=== PATIENT | male | born 1960 | race Caucasian/White ===

== ENCOUNTER 2017-09-21 11:22 | Emergency (ER) | payer BC ==
--- NOTE | 2017-09-21 13:17 | RAD ---
Indication: Cough. 2 views of chest including dual energy PA views demonstrate no mediastinal shift. Heart is of normal size and configuration. Lung zhou demonstrate no pleural fluid, pneumonia or pneumothorax. IMPRESSION: No active cardiopulmonary disease is noted.
--- NOTE | 2017-09-21 13:50 | UC ---
Reji Alas Angela, scribed for Linda Draper MD on 09/21/17 at 1232 . General HPI - HPI Summary HPI Summary: This pt is a 57 y/o male, with prostate CA, presenting to [facility] c/o cough, chest congestion, and nasal congestion since June 2017. Pt reports that he also had flu like symptoms (including headache, fever, fatigue) which resolved 2 weeks ago. Pt notes his cough and chest congestion have persister. Reports productive cough with yellow sputum. He states he has had decreased appetite for the last 2 weeks. He believes he has a sinus infection. Denies diarrhea, constipation, rash, bloody stools. Pt has not had a flu vaccine this year. His oncologist is Dr. Mcknight. Pt finished chemotherapy in 2015, 2 phases. He last had a chest XR 1 year ago. He is scheduled for blood work today and PSA. 2 months ago his PSA was elevated but had not changed from prior. Pt is a former smoker, quit 25 years ago. - History of Current Complaint Chief Complaint: UCRespiratory Stated Complaint: CONGESTED,FEVER,COUGH Time Seen by Provider: 09/21/17 12:27 Hx Obtained From: Patient Onset/Duration: Lasting Weeks, Still Present Timing: Constant Current Severity: Moderate Associated Signs & Symptoms: Positive: Cough, Other - POS: chest congestion, nasal congestion. NEG: constipation, rash, bloody stools. 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 - Social History Occupation: Employed Full-time - own [employer] Alcohol Use: None Substance Use Type: None Smoking Status (MU): Former Smoker Have You Smoked in the Last Year: No When Did the Patient Quit Smoking/Using Tobacco: 22 years ago - Immunization History Most Recent Influenza Vaccination: NOT UTD Most Recent Tetanus Shot: unknown Most Recent Pneumonia Vaccination: never Review of Systems Constitutional: Negative Skin: Negative ENT: Sinus Congestion Respiratory: Cough Cardiovascular: Other - chest congestion Gastrointestinal: Negative Genitourinary: Negative Motor: Negative Neurovascular: Negative Musculoskeletal: Negative Neurological: Negative Psychological: Negative Is Patient Immunocompromised?: Yes All Other Systems Reviewed And Are Negative: Yes Physical Exam Triage Information Reviewed: Yes Appearance: Well-Appearing - sitting up, conversing easily and appropriately. NAD., Well-Nourished Vital Signs: Initial Vital Signs Temp 97.8 F 09/21/17 11:41 Pulse 80 09/21/17 11:41 Resp 18 09/21/17 11:41 BP 135/88 09/21/17 11:41 Pulse Ox 98 09/21/17 11:41 Vital Signs Reviewed: Yes Eye Exam: Normal ENT Exam: Normal ENT: Positive: Pharynx normal - uvula midline., Nasal congestion, TM dull, Other - Nasal turbinates are both red, a little swollen. Neck: Positive: Supple, Nontender, No Lymphadenopathy - no adenopathy appreciated Respiratory: Positive: Chest non-tender, Lungs clear, Normal breath sounds, No respiratory distress, No accessory muscle use Cardiovascular Exam: Normal Cardiovascular: Positive: RRR, No Murmur, Pulses Normal, Brisk Capillary Refill Abdominal Exam: Normal Abdomen Description: Positive: Nontender, No Organomegaly, Soft Bowel Sounds: Positive: Present Musculoskeletal Exam: Normal Musculoskeletal: Positive: Strength Intact Neurological Exam: Normal - nonfocal, grossly intact Psychological Exam: Normal - conversing easily and appropriately Skin Exam: Normal - no visible or reported rash Diagnostics - Radiology Chest XR Xray Interpretation: No Acute Changes - IMPRESSION: No active cardiopulmonary disease is noted. Dr. Draper has reviewed this radiology report. Radiology Interpretation Completed By: Radiologist Re-Evaluation - Re-Evaluation First Eval Re-Evaluation Time: 13:32 Comment: I reviewed the chest XR with the pt. Course/Dx - Course Course Of Treatment: Rapid influenza A and B are negative. Chest XR is negative. Spoke with Dr. Mcknight at 12:51. Influenza NS a/b negative. CXR NAD. Reviewed results with Angeles. D/w Dr. Mcknight, 13:00. Recommend start levofloxacin. She will f/u as scheduled next week, blood work this week. Questions as posed answered to the best of my ability. Bronchitis / possible sinusitis in the setting of previous cancer treatment. - Differential Dx - Multi-Symptom Provider Diagnoses: Bronchitis. Possible sinusitis - Physician Notifications Discussed Patient Care With: Nova Mcknight Time Discussed With Above Provider: 12:51 Discharge - Discharge Plan Condition: Stable Disposition: HOME Prescriptions: Levofloxacin TAB* [Levaquin 500 Tab*] 500 mg PO DAILY #10 tab Patient Education Materials: Sinusitis (ED), Chronic Bronchitis (ED) Referrals: Nova Mcknight MD [Primary Care Provider] - Additional Instructions: Your blood pressure was elevated during today's visit, 135/88. Please follow up with your primary care provider in 1-2 weeks. Follow up with Dr. Iris Mcknight as scheduled. Blood work this week. Start probiotic while taking antibiotic, and continue for at least one week thereafter. Seek medical attention for worse or new problems in the meantime. The documentation as recorded by the Reji puentes Angela accurately reflects the service I personally performed and the decisions made by me, Linda Draper MD.
[2017-09-21 13:59] VITALS: BP 149/96
== END 2017-09-21 13:56 | disposition home or self-care (01) ==
LOC: UCEAST 11:22
DX: J40 Bronchitis, not specified as acute or chronic (principal); R03.0 Elevated blood-pressure reading, without diagnosis of hypertension; Z87.891 Personal history of nicotine dependence
CPT/HCPCS: 71020; 87502; 99212; G0463

== ENCOUNTER 2017-11-14 11:37 | Emergency (ER) | payer BC ==
[2017-11-14 11:57] VITALS: BP 145/94
--- NOTE | 2017-11-14 12:43 | UC ---
Respiratory Complaint HPI - HPI Summary HPI Summary: Pt presents with cough that is productive at times and some hoarseness that started 1 week ago. Over the last 2 days he has had pain in his left back when coughing. He tells me that he is currently on a "chemo pill" for skin cancers. He has not been taking anything OTC for this. Denies fevers, chills, SOB, chest pain, abdominal pain, n/v/d/c. - History of Current Complaint Chief Complaint: UCGeneralIllness Stated Complaint: FLU LIKE SYMS Time Seen by Provider: 11/14/17 12:42 Hx Obtained From: Patient Onset/Duration: Gradual Onset Severity Initially: Moderate Severity Currently: Moderate Pain Intensity: 7 Pain Scale Used: 0-10 Numeric - Allergies/Home Medications Allergies/Adverse Reactions: Allergies Allergy/AdvReac Type Severity Reaction Status Date / Time No Known Allergies Allergy Verified 11/14/17 11:50 Home Medications: Home Medications Abiraterone Acetate [Zytiga] 1,000 mg PO DAILY 11/14/17 [History Confirmed 11/14] Cholecalciferol TAB* [Vitamin D TAB*] 5,000 unit PO DAILY 11/14/17 [History Confirmed 11/14/17] Multivitamin [Multivitamins] 1 tab PO DAILY 11/14/17 [History Confirmed 11/14/17 ] Potassium Gluconate [Potassium] 600 mg PO DAILY 11/14/17 [History Confirmed ] predniSONE TAB* [Deltasone TAB*] 1 tab PO BID 11/14/17 [History Confirmed ] PMH/Surg Hx/FS Hx/Imm Hx Cancer History: Other Other Cancer History: Skin cancer - Surgical History Surgical History: Yes Surgery Procedure, Year, and Place: prostatectomy 2006, TURP - Family History Family History: No FHx of CA. - Social History Occupation: Employed Full-time Lives: With Family Alcohol Use: None Substance Use Type: None Smoking Status (MU): Former Smoker Have You Smoked in the Last Year: No When Did the Patient Quit Smoking/Using Tobacco: 22 years ago - Immunization History Most Recent Influenza Vaccination: NOT UTD Most Recent Tetanus Shot: unknown Most Recent Pneumonia Vaccination: never Review of Systems Constitutional: Negative Skin: Negative Eyes: Negative ENT: Negative Respiratory: Cough Cardiovascular: Negative Gastrointestinal: Negative Musculoskeletal: Negative Neurological: Negative Psychological: Negative All Other Systems Reviewed And Are Negative: Yes Physical Exam Triage Information Reviewed: Yes Appearance: Well-Appearing, No Pain Distress, Ill-Appearing - Mildly Vital Signs: Initial Vital Signs Temp 97.6 F 11/14/17 11:52 Pulse 71 11/14/17 11:52 Resp 20 11/14/17 11:52 BP 145/94 11/14/17 11:52 Pulse Ox 97 11/14/17 11:52 Vital Signs Reviewed: Yes Eyes: Positive: Conjunctiva Clear. Negative: Conjunctiva Inflamed, Discharge ENT: Positive: Hearing grossly normal, Pharynx normal, TMs normal, Hoarse voice , Uvula midline. Negative: Pharyngeal erythema, Nasal congestion, Nasal drainage, TM bulging, TM dull, TM red, Tonsillar swelling, Tonsillar exudate, Sinus tenderness Neck: Positive: Supple, Nontender, No Lymphadenopathy Respiratory: Positive: Lungs clear, No respiratory distress, No accessory muscle use, Wheezing - Mild throughout Cardiovascular: Positive: RRR, No Murmur, Pulses Normal Neurological: Positive: Alert Psychological: Positive: Age Appropriate Behavior Skin: Negative: rashes UC Diagnostic Evaluation - Laboratory O2 Sat by Pulse Oximetry: 97 Re-Evaluation - Re-Evaluation First Eval Re-Evaluation Time: 14:00 Change: Improved Comment: Lung sounds improved. Pt reports mild improvement Respiratory Course/Dx - Course Course Of Treatment: CXR: IMPRESSION: NEGATIVE EXAMINATION. Influenza B positive. Duoneb - lung sounds improved. Tamiflu - Differential Dx/Diagnosis Provider Diagnoses: Influenza B Discharge - Discharge Plan Condition: Stable Disposition: HOME Prescriptions: Oseltamivir CAP* [Tamiflu CAP*] 75 mg PO BID #10 cap Patient Education Materials: Influenza (DC) Referrals: No Primary Care Phys,NOPCP [Primary Care Provider] - Additional Instructions: If you develop a fever, shortness of breath, chest pain, new or worsening symptoms - please call your PCP or go to the ED. Your blood pressure was high at todays visit. Please see your primary provider within 4 weeks for recheck and re-evaluation.
[2017-11-14] MEDS ORDERED: Albuterol/Ipratropium NEB.SOL* Albuterol 2.5 MG/Ipratropium 0.5 MG 3 ML INH ONE (12:47)
--- NOTE | 2017-11-14 13:14 | RAD ---
INDICATION: Cough COMPARISON: None TECHNIQUE: PA and lateral dual-energy views were obtained. FINDINGS: Bones/Soft Tissues: There are no acute bony findings. Cardiomediastinal: The cardiomediastinal silhouette is normal. Lungs: There are no infiltrates. Pleura: There are no pleural effusions. Other: None IMPRESSION: NEGATIVE EXAMINATION.
== END 2017-11-14 13:49 | disposition home or self-care (01) ==
LOC: UCEAST 11:37
DX: J10.1 Influenza due to other identified influenza virus with other respiratory manifestations (principal); R05 Cough; Z85.828 Personal history of other malignant neoplasm of skin; Z90.79 Acquired absence of other genital organ(s); Z87.891 Personal history of nicotine dependence
CPT/HCPCS: 71046; 87502; 99212; A9270-GY; G0463

== ENCOUNTER 2017-12-04 18:26 | Emergency (ER) | payer BC ==
[2017-12-04 18:36] VITALS: BP 131/84
--- NOTE | 2017-12-04 19:17 | UC ---
Julian Alas Gabriel, scribed for Diana Del Valle MD on 12/04/17 at 1912 . Throat Pain/Nasal Gerardo HPI - HPI Summary HPI Summary: This patient is a 57 year old M presenting [place] [facility] with a chief complaint of a sore throat that began 3 days ago. The patient rates the pain 2/10 in severity. Patient reports nasal congestion, sinus pressure, and post nasal drip. Patient denies ear pain, fever, chills, and rashes. Pt had lymphoma and radiation on his face around a year ago. He is more congested than normal. He is on immunosuppressants but has not had issues with yeast infections. Pt is currently on chemo agent as well as prednisone for recurrent prostate cancer. Pt denies with multiple sick contacts in grandchildren. Patients medication reviewed during this visit. - History of Current Complaint Chief Complaint: UCGeneralIllness Stated Complaint: SORE THROAT Time Seen by Provider: 12/04/17 19:05 Hx Obtained From: Patient Onset/Duration: Lasting Days - 3, Still Present Severity: Mild Pain Intensity: 2 Pain Scale Used: 0-10 Numeric Associated Signs & Symptoms: Positive: Sinus Discomfort, Nasal Discharge - Allergies/Home Medications Allergies/Adverse Reactions: Allergies Allergy/AdvReac Type Severity Reaction Status Date / Time No Known Allergies Allergy Verified 11/14/17 11:50 PMH/Surg Hx/FS Hx/Imm Hx Previously Healthy: Yes - Surgical History Surgical History: Yes Surgery Procedure, Year, and Place: prostatectomy 2006, TURP - Family History Known Family History: Negative: Respiratory Disease, Seizure Disorder Family History: No FHx of CA. - Social History Occupation: Employed Full-time Lives: With Family Alcohol Use: None Substance Use Type: None Smoking Status (MU): Former Smoker Have You Smoked in the Last Year: No When Did the Patient Quit Smoking/Using Tobacco: 22 years ago - Immunization History Most Recent Influenza Vaccination: NOT UTD Most Recent Tetanus Shot: unknown Most Recent Pneumonia Vaccination: never Review of Systems Constitutional: Negative - fever ENT: Sore Throat, Sinus Congestion, Sinus Pain/Tenderness, Other - post nasal drip Psychological: Other Is Patient Immunocompromised?: Yes - takes immunosuppressant All Other Systems Reviewed And Are Negative: Yes Physical Exam Triage Information Reviewed: Yes Completion Of Physical Exam Limited Due To: Other - Pt with nasal congested sound Appearance: Well-Appearing, No Pain Distress, Well-Nourished Vital Signs: Initial Vital Signs Temp 98.1 F 12/04/17 18:30 Pulse 67 12/04/17 18:30 Resp 16 12/04/17 18:30 BP 131/84 12/04/17 18:30 Pulse Ox 98 12/04/17 18:30 Eye Exam: Normal Eyes: Positive: Conjunctiva Clear ENT: Positive: Other - TM x2 clear + turbinates inflammed and boggy,moist +PND no exudate, no erythema uvula midline no erythema No visible concerning findings for demi Dental Exam: Normal Neck exam: Normal Neck: Positive: Supple, Nontender, No Lymphadenopathy Respiratory Exam: Normal Respiratory: Positive: Chest non-tender, Lungs clear, Normal breath sounds, No respiratory distress, No accessory muscle use Cardiovascular Exam: Normal Cardiovascular: Positive: RRR, No Murmur Abdominal Exam: Normal Abdomen Description: Positive: Nontender, No Organomegaly, Soft Musculoskeletal Exam: Normal Musculoskeletal: Positive: Strength Intact Neurological Exam: Normal Neurological: Positive: Alert Psychological Exam: Normal Psychological: Positive: Normal Response To Family Skin Exam: Normal Throat Pain/Nasal Course/Dx - Course Course Of Treatment: Pt with sore throat and progressive congestion. pt with h/ o facial radiation and currently on immunosuppressants. strep neg. culture for demi pending. after much discussion, will start rx for early sinusitis given hx. pt comfortable and in agreement with plan - Differential Dx/Diagnosis Provider Diagnoses: sinusitis. pharyngitis Discharge - Discharge Plan Condition: Stable Disposition: HOME Prescriptions: Amoxicillin PO (*) [Amoxicillin 875 MG (*)] 875 mg PO BID #14 tab Patient Education Materials: Pharyngitis (ED), Sinusitis (ED) Referrals: Nova Mcknight MD [Medical Doctor] - No Primary Care Phys,NOPCP [Primary Care Provider] - Additional Instructions: - - Stay well hydrated. Drink plenty of non-alcoholic, non-caffinated beverages. - Alternate ibuprofen (Advil, Motrin) 600mg and Tylenol every 3 hours for pain or fever. Take with food. Do NOT take for more than 4-5 days. -cold foods (popsicle, jello, apple sauce) may be soothing to your throat - okay to gargle and spit with warm salt water, 2-3 times a day - These infections are spread by secretions - do NOT share eating or drinking utensils - clean items you share with other people such as cell phones, computer mouse, TV remote, computer tablets, etc. After you have taken Antibiotics for 3 days, change your toothbrush and your pillowcase. - humidify the air in the room where you sleep - boil water, run a hot steam shower, vaporizer, cups of water by heat register - your throat sample was sent for additional testing including yeast. This result may take 3 days - a member of our care team will contact you if you need a different treatment - contact your doctor, return here, or go to the emergency department with questions or concerns The documentation as recorded by the Julian puentes Gabriel accurately reflects the service I personally performed and the decisions made by me, Diana Del Valle MD.
== END 2017-12-04 19:28 | disposition home or self-care (01) ==
LOC: UCEAST 18:26
DX: J32.9 Chronic sinusitis, unspecified (principal); Z87.891 Personal history of nicotine dependence
CPT/HCPCS: 87070; 87651; 99212; G0463

== ENCOUNTER 2018-08-22 05:47 | Day surgery (SDC) | payer BC ==
[~2018-08-22 05:47] MED LIST: Buffered Lidocaine 0.9% SYRIN* 5 ML/SYR SYRINGE INTRADERM ONE
[2018-08-22] MEDS ORDERED: Famotidine IV* 10 MG/ML 2 ML (20 mg) IV ONE (06:00)
[2018-08-22] MEDS ORDERED: Midazolam* 1 MG/ML 2 ML VIAL (2 MG) ONE (06:26)
[2018-08-22] MEDS ORDERED: fentaNYL* 50 MCG/ML 2 ML VIAL (100 MCG VIAL) ONE (06:26)
[2018-08-22] MEDS ORDERED: Famotidine IV* 10 MG/ML 2 ML (20 mg) ONE (06:46)
[2018-08-22] MEDS ORDERED: Oxymetazoline 0.05% NASAL SPR* 15 ML BTL ONE (06:50)
[2018-08-22] MEDS ORDERED: Lidocaine 4% TOPICAL* 50 ML TOP.SOLN ONE (06:50)
[2018-08-22] MEDS ORDERED: EPINEPHRINE 1 MG/ML 1 ML VIAL ONE (06:57)
[2018-08-22] MEDS ORDERED: Rocuronium* 10 MG/ML VIAL ONE (07:21)
[2018-08-22] MEDS ORDERED: Metoclopramide IV* 5 MG/ML 2 ML VIAL ONE (07:22)
[2018-08-22] MEDS ORDERED: Lidocaine 2% PF * 5 ML VIAL ONE (07:22)
[2018-08-22] MEDS ORDERED: Propofol* 10 MG/ML 20 ML BTL ONE (07:22)
[2018-08-22] MEDS ORDERED: Ondansetron INJ* 2 MG/ML VIAL ONE (07:22)
[2018-08-22] MEDS ORDERED: Dexamethasone IV* 4 MG/ML 1 ML (4 MG) ONE (07:24)
[2018-08-22] MEDS ORDERED: Sugammadex * 500 MG/5 ML VIAL IV PUSH ONE (07:27)
[2018-08-22] MEDS ORDERED: Naloxone* 0.4 MG/ML 1 ML VIAL IV PRN (07:35)
[2018-08-22] MEDS ORDERED: Ibuprofen TAB* 600 MG PO PRN (07:35)
[2018-08-22] MEDS ORDERED: fentaNYL* 50 MCG/ML 2 ML VIAL (100 MCG VIAL) IV PRN (07:35)
[2018-08-22] MEDS ORDERED: PROCHLORPERAZINE INJ 5 MG/ML 2 ML VIAL IV PRN (07:35)
[2018-08-22] MEDS ORDERED: HYDROcodone/ACETAMIN 5-325 MG* 1 TAB PO PRN (07:35)
[2018-08-22] MEDS ORDERED: DiMENhydriNATE IV* 50 MG/ML VIAL IV PUSH PRN (07:35)
[2018-08-22] MEDS ORDERED: Acetaminophen TAB* 325 MG PO PRN (07:35)
[2018-08-22] MEDS ORDERED: HYDROcodone/ACET. 7.5/325 LIQ* 15 ML UDC ONE (08:12)
[2018-08-22] MEDS ORDERED: Succinylcholine* 20 MG/ML 10 ML VIAL ONE (08:57)
[2018-08-22 09:13] VITALS: BP 145/87
--- NOTE | 2018-08-23 02:15 | OP ---
DATE OF OPERATION: 08/22/18 - [facility] DATE OF : 60 ATTENDING SURGEON: Cuba Rivas MD ENROUTE CONTROLLER: None. ANESTHESIA: General. PRE-OP DIAGNOSIS: Neoplasm, uncertain behavior larynx. POST-OP DIAGNOSIS: Neoplasm, uncertain behavior larynx. OPERATIVE PROCEDURE: Microlaryngoscopy with biopsies. 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 Initially, his larynx had a generally inflamed appearance. He then developed some ulceration in the region of the left aryepiglottic fold, which did not respond to treatment. The decision was made to bring the patient to the operating room for biopsies. ESTIMATED BLOOD LOSS: Negligible. SPECIMEN: Biopsies of left aryepiglottic fold. DESCRIPTION OF PROCEDURE: On 08/22/18, the patient was brought to the operating room. General anesthesia was induced and an oral endotracheal tube was placed. The patient was draped, the table was turned and time-out was performed. A variety of laryngoscopes were selected, ultimately an anterior commissure scope was selected and gave an optimal view of the area of interest. This was placed in suspension. A tooth guard was placed over the upper teeth and the scope was introduced slowly and carefully to avoid damage to dentition or the lips. Once the scope was secured in position, the microscope was brought into field. There was area of diffuse inflammation left side of the larynx with some fragile-appearing ulcerated mucosa in the region of the left aryepiglottic fold extending down to the left false vocal cord region. Multiple small biopsies were taken of this area. Two pledgets with epinephrine were placed on the area to assist with hemostasis. These were then removed. The area was re-inspected. There was no active bleeding. The patient was then returned to the care of the anesthesiologist. Teeth and lips looked fine and the tooth guard was removed. He was then extubated without difficulty and delivered to the PACU. [id number]/CPS #: [id number] [facility]
== END 2018-08-22 09:21 | disposition home or self-care (01) ==
LOC: OR 05:47
PROVIDERS: ATTEND Otolaryngology
DX: C32.1 Malignant neoplasm of supraglottis (principal); Z87.891 Personal history of nicotine dependence; K21.0 Gastro-esophageal reflux disease with esophagitis; 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, extranodal and solid organ sites; Z85.46 Personal history of malignant neoplasm of prostate
CPT/HCPCS: 88305; A9270-GY; J0330; J1100; J2250; J2405; J2704; J2765; J3010

== ENCOUNTER 2018-09-29 15:51 | Emergency (ER) | payer BC ==
[2018-09-29] MEDS ORDERED: NS 0.9% 1000 ML* 1,000 ML IV ONE (16:51)
[2018-09-29 17:25] LABS: ABS Basophils 0.1 10^3/ul (0-0.2); ABS Eosinophils 0 10^3/ul (0-0.6); ABS Lymphocytes 1.1 10^3/ul (1.0-4.8); ABS Monocytes 1.4 10^3/ul (0-0.8); ABS Neutrophils 11.3 10^3/ul (1.5-7.7); ABS Nucleated RBC 0 10^3/ul; Eosinophil % 0.3 %; Hematocrit 40 % (42-52); Hemoglobin 13.4 g/dl (14.0-18.0); Lymphocyte % 7.8 %; Mean Corpuscular HGB Conc 33 g/dl (31-36); Mean Corpuscular Hemoglobin 30 pg (27-31); Mean Corpuscular Volume 89 fL (80-94); Mean Platelet Volume 6.1 fL (7.4-10.4); Nucleated Red Blood Cells % 0; Platelet Count 255 10^3/ul (150-450); Red Cell Distribution Width 15 % (10.5-15); White Blood Count 13.9 10^3/ul (3.5-10.8)
[2018-09-29] MEDS ORDERED: Ciprofloxacin 400MG IVPREMIX(* 400 MG/200 ML BAG IVPB ONE (17:25)
[2018-09-29] MEDS ORDERED: metroNIDAZOLE TAB* 250 MG PO ONE (17:25)
--- NOTE | 2018-09-29 17:25 | ED ---
Abdominal Pain/Male - HPI Summary HPI Summary: A 58 y/o male accompanied by family presents to the ED c/o abdominal pain and fever reaching 4/10 in severity. As per triage, "Pt has diverticulitis and today has a fever and L abd pain. Pt says he has surgery appt on Monday ( supraglotic partial laryngectomy)". According to the patient, he has a surgical appointment on Monday for a supraglotic partial laryngectomy. He stated that he is concerned because he has been experiencing a fever for the past 2-3 days around 100.5 F. Additionally, he has abdominal pain and vomiting. He further noted that he has had diverticulitis for a long time, however, it has flared up approximately 3-4 times. PMHx of cancer. - History of Current Complaint Chief Complaint: EDAbdPain Stated Complaint: ABD PAIN/FEVER Time Seen by Provider: 09/29/18 16:45 Hx Obtained From: Patient Onset/Duration: Sudden Onset, Lasting Days, Still Present Timing: Constant Severity Initially: Moderate Severity Currently: Moderate Pain Intensity: 4 Pain Scale Used: 0-10 Numeric Location: Discrete At: LLQ Radiates: No Aggravating Factor(s): Nothing Alleviating Factor(s): Nothing Associated Signs And Symptoms: Positive: Fever - Allergies/Home Medications Allergies/Adverse Reactions: Allergies Allergy/AdvReac Type Severity Reaction Status Date / Time No Known Allergies Allergy Verified 08/22/18 06:44 PMH/Surg Hx/FS Hx/Imm Hx Endocrine/Hematology History: Denies: Hx Diabetes Cardiovascular History: Denies: Hx Hypertension, Hx Pacemaker/ICD, Other Cardiovascular Problems/ Disorders Respiratory History: Denies: Hx Sleep Apnea, Other Respiratory Problems/Disorders GI History: Reports: Hx Gastroesophageal Reflux Disease - omeprazole Denies: Other GI Disorders History: Denies: Hx Renal Disease, Other Problems/Disorders Musculoskeletal History: Denies: Other Musculoskeletal History Sensory History: Denies: Hx Contacts or Glasses, Hx Hearing Aid Opthamlomology History: Denies: Hx Contacts or Glasses Neurological History: Denies: Other Neuro Impairments/Disorders Psychiatric History: Denies: Hx Panic Disorder - Cancer History Cancer Type, Location and Year: PROSTATE, LYMPHOMA, THROAT Hx Chemotherapy: Yes - 2016 Hx Radiation Therapy: Yes - /c prostate CA - Surgical History Surgery Procedure, Year, and Place: Prostatectomy 2006, [facility] Hx Anesthesia Reactions: No Infectious Disease History: No Infectious Disease History: Denies: Traveled Outside the [place] in Last 30 Days - Family History Known Family History: Negative: Respiratory Disease, Seizure Disorder Family History: No FHx of CA. - Social History Alcohol Use: None Substance Use Type: Reports: None Hx Tobacco Use: Yes - quit 20 yrs ago, 20 pk history Smoking Status (MU): Former Smoker Type: Cigarettes Amount Used/How Often: 3 PPd for 20 years Have You Smoked in the Last Year: No Review of Systems Positive: Fever Positive: Abdominal Pain, Vomiting All Other Systems Reviewed And Are Negative: Yes Physical Exam - Summary Physical Exam Summary: VITAL SIGNS: Reviewed. GENERAL: Patient is a well-developed and nourished male who is lying comfortable in the stretcher. Patient is not in any acute respiratory distress. HEAD AND FACE: No signs of trauma. No ecchymosis, hematomas or skull depressions. No sinus tenderness. EYES: PERRLA, EOMI x 2, No injected conjunctiva, no nystagmus. EARS: Hearing grossly intact. Ear canals and tympanic membranes are within normal limits. MOUTH: Oropharynx within normal limits. NECK: Supple, trachea is midline, no adenopathy, no JVD, no carotid bruit, no c- spine tenderness, neck with full ROM. CHEST: Symmetric, no tenderness at palpation LUNGS: Clear to auscultation bilaterally. No wheezing or crackles. CVS: Regular rate and rhythm, S1 and S2 present, no murmurs or gallops appreciated. ABDOMEN: Soft, LLQ tenderness. No signs of distention. No rebound no guarding, and no masses palpated. Bowel sounds are normal. EXTREMITIES: FROM in all major joints, no edema, no cyanosis or clubbing. NEURO: Alert and oriented x 3. No acute neurological deficits. Speech is normal and follows commands. SKIN: Dry and warm Triage Information Reviewed: Yes Vital Signs On Initial Exam: Initial Vitals Temp Pulse Resp BP Pulse Ox 98.1 F 93 18 145/98 98 09/29/18 16:17 09/29/18 16:17 09/29/18 16:17 09/29/18 16:17 09/29/18 16:17 Vital Signs Reviewed: Yes Diagnostics - Vital Signs Vital Signs Temp Pulse Resp BP Pulse Ox 09/29/18 16:17 98.1 F 93 18 145/98 98 - Laboratory Result Diagrams: 09/29/18 17:17 09/29/18 17:17 Lab Statement: Any lab studies that have been ordered have been reviewed, and results considered in the medical decision making process. - CT CT A/P CT Interpretation Completed By: Radiologist Summary of CT Findings: 1. CT findings are consistent with proximal sigmoid diverticulitis. 2. Chronic, degenerative and iatrogenic findings described in body the report. ED PHYSICIAN REVIEWED THIS RADIOLOGY REPORT. Re-Evaluation - Re-Evaluation First Eval Re-Evaluation Time: 18:06 Change: Unchanged Comment: PATIENT'S NOTED STATED THAT WHEN HE AMBULATES, THE PATIENT C/O LEG AND HIP PAIN. Abdominal Pain Fem Course/Dx - Course Assessment/Plan: A 58 y/o male accompanied by family presents to the ED c/o abdominal pain and fever reaching 4/10 in severity. As per triage, "Pt has diverticulitis and today has a fever and L abd pain. Pt says he has surgery appt on Monday (supraglottic partial laryngectomy)". According to the patient , he has a surgical appointment on Monday for a supraglottic partial laryngectomy. He stated that he is concerned because he has been experiencing a fever for the past 2-3 days around 100.5 F. Additionally, he has abdominal pain and vomiting. He further noted that he has had diverticulitis for a long time, however, it has flared up approximately 3-4 times. PMHx of cancer. Blood work without any significant abnormality except for WBCs of 13.9, no bands, glucose of 122, CRP is 31.8. Abdomen and pelvic CT impression: CT findings are consistent with a proximal sigmoid diverticulitis. Chronic degenerative an iatrogenic findings. In the ED course the patient was given ciprofloxacin and Flagyl. Patient also was hydrated with IV fluids. I discussed all the findings and test results with the patient. Patient was instructed to return to the emergency room immediately if any of the symptoms return or worsens. Plan of care was discussed with the patient and understands and agrees. All questions were answered at patient satisfaction. There were no further complaints or concerns. Lung exam before discharge: CTA B/L. Good air exchange. No wheezing or crackles heard. CVS: S1 and S2 present. No murmurs appreciated. Patient is alert and oriented x 3. Patient is hemodynamically stable. Patient will be discharged home with follow up PCP in the next 2-3 days - Diagnoses Differential Diagnosis/HQI/PQRI: Appendicitis, Bowel Obstruction, Constipation, Ureteral Stone, Urinary Tract Infection Provider Diagnoses: Diverticulitis Discharge - Sign-Out/Discharge Documenting (check all that apply): Patient Departure - DISCHARGE - Discharge Plan Condition: Stable Disposition: HOME Prescriptions: Ciprofloxacin TAB* [Cipro 500 MG TAB*] 500 mg PO BID #20 tab metroNIDAZOLE [Flagyl 500 MG TAB] 500 mg PO TID #30 tab Patient Education Materials: Diverticulitis (ED) Referrals: Dianne Day MD [Primary Care Provider] - 3 Days Additional Instructions: FOLLOW UP WITH PRIMARY CARE PROVIDER IN 3 DAYS. TAKE MEDICATION PRESCRIBED. RETURN TO ED FOR ANY NEW OR WORSENING SYMPTOMS. - Billing Disposition and Condition Condition: STABLE Disposition: Home - Attestation Statements Document Initiated by Scribe: Yes Documenting Scribe: Demar Aguilar Provider For Whom Dhaval is Documenting (Include Credential): Chris Ferguson MD Scribe Attestation: Demar Alas, scribed for Chris Ferguson MD on 09/30/18 at 0906. Scribe Documentation Reviewed: Yes Provider Attestation: The documentation as recorded by the Demar puentes accurately reflects the service I personally performed and the decisions made by me, Chris Ferguson MD Status of Scribe Document: Viewed Attestations Scribe Attestation: IDr. Ferguson personally performed the services described in this documentation as scribed in my presence and it is both accurate and complete. User Type: Provider with Scribe Provider Attestation: The documentation recorded by the dhaval accurately reflects the service I personally performed and the decisions made by me.
[2018-09-29 17:43] LABS: Albumin 4.1 g/dL (3.2-5.2); Albumin/Globulin Ratio 1.3 (1-3); BUN/Creatinine Ratio 17.8 (8-20); C Reactive Protein 31.87 mg/L (<8.01); Calcium 9.2 mg/dL (8.6-10.3); EGFR Non-African American 75.9 (>60); Globulin 3.2 g/dL (2-4); Potassium 3.5 mmol/L (3.5-5.0); Total Bilirubin 0.9 mg/dL (0.2-1.0); Total Protein 7.3 g/dL (6.4-8.9)
[2018-09-29 18:57] VITALS: BP 128/79
== END 2018-09-29 19:00 | disposition home or self-care (01) ==
LOC: ED 15:51
DX: K57.32 Diverticulitis of large intestine without perforation or abscess without bleeding (principal); R50.9 Fever, unspecified; K21.9 Gastro-esophageal reflux disease without esophagitis; Z87.891 Personal history of nicotine dependence
CPT/HCPCS: 36415; 74176; 80053; 83605; 83690; 83735; 85025; 86140; 96365; 99283; A9270-GY; J0744

== ENCOUNTER → 2018-10-15 07:15 | Emergency (ER) | payer BC ==
[~2018-10-15 07:15] MED LIST changes: -Buffered Lidocaine 0.9% SYRIN* 5 ML/SYR SYRINGE INTRADERM ONE; +Fluconazole 100 MG TAB* TAB PO ONE; +Ketorolac INJ* 30 MG/ML 1 ML VIAL IV PUSH ONE; +Morphine VIAL* 4 MG/ML VIAL (1 ml vial) IV ONE; +NS 0.9% 1000 ML* 1,000 ML IV ONE; +Ondansetron INJ* 2 MG/ML VIAL IV ONE
--- NOTE | 2018-10-15 07:31 | ED ---
Back Pain - HPI Summary HPI Summary: A 58 y/o M with throat CA presents to ED with bilat lower back pain onset last night this date. He says he ate last night without issue. Patient has known thrush onset 10/04/18. It's made swallowing and drinking difficult. He started on Nystatin on 10/11/18 but he doesnt feel the medication is helping. He was on ABX for diverticulitis 3 weeks ago which caused the thrush. Associated sx: n/v, diffuse abd ache, mild COBB, dark urine, mild recent weight loss. Denies fever, dysuria, hematuria, bowel changes, dizziness, SOB, diarrhea. Aggravating factor : movement. He has not had back pain prior, kidney stones. PMHx: prostate CA, lymphoma. Pt sees Dr. Mcknight, oncology. He is due to have a neck biopsy later today. Medications reviewed. - History of Current Complaint Chief Complaint: EDFlankPain Stated Complaint: POSS THRUSH/POSS BLADDER INFECTION Time Seen by Provider: 10/15/18 07:27 Hx Obtained From: Patient, Family/Bulldozer/Loader/Compactor/Scraper Onset/Duration: Lasting Hours, Still Present Onset/Duration: Started Hours Ago, Atraumatic, Still Present Timing: Constant Back Pain Location: Is Discrete @ - low bilat back Severity Currently: Severe Pain Intensity: 8 Pain Scale Used: 0-10 Numeric Aggravating Symptom(s): Movement Associated Signs And Symptoms: Positive: Abdominal Pain, Weight Loss, Other - pos: n/v, dark urine, mild COBB. neg: dysuria, hematuria, bowel changes, dizziness , SOB, diarrhea. Negative: Fever, Bladder Incontinence, Bowel Incontinence - Allergies/Home Medications Allergies/Adverse Reactions: Allergies Allergy/AdvReac Type Severity Reaction Status Date / Time No Known Allergies Allergy Verified 10/15/18 07:20 PMH/Surg Hx/FS Hx/Imm Hx Previously Healthy: No Endocrine/Hematology History: Denies: Hx Diabetes Cardiovascular History: Denies: Hx Hypertension, Hx Pacemaker/ICD, Other Cardiovascular Problems/ Disorders Respiratory History: Denies: Hx Sleep Apnea, Other Respiratory Problems/Disorders GI History: Reports: Hx Gastroesophageal Reflux Disease - omeprazole Denies: Other GI Disorders History: Denies: Hx Renal Disease, Other Problems/Disorders Musculoskeletal History: Denies: Other Musculoskeletal History Sensory History: Denies: Hx Contacts or Glasses, Hx Hearing Aid Opthamlomology History: Denies: Hx Contacts or Glasses Neurological History: Denies: Other Neuro Impairments/Disorders Psychiatric History: Denies: Hx Panic Disorder - Cancer History Cancer Type, Location and Year: PROSTATE, LYMPHOMA, THROAT Hx Chemotherapy: Yes - 2016 Hx Radiation Therapy: Yes - /c prostate CA - Surgical History Surgery Procedure, Year, and Place: Prostatectomy 2007, [facility] Hx Anesthesia Reactions: No Infectious Disease History: No Infectious Disease History: Denies: Traveled Outside the [place] in Last 30 Days - Family History Known Family History: Negative: Respiratory Disease, Seizure Disorder Family History: No FHx of CA. - Social History Occupation: Employed Full-time - SELF-EMPLOYED Lives: With Family Alcohol Use: None Hx Substance Use: No Substance Use Type: Reports: None Hx Tobacco Use: Yes - quit 20 yrs ago, 20 pk history Smoking Status (MU): Former Smoker Type: Cigarettes Amount Used/How Often: 3 PPd for 20 years Have You Smoked in the Last Year: No Review of Systems Positive: Other - pos: mild recent weight loss. Negative: Fever Negative: Shortness Of Breath Positive: Abdominal Pain, Vomiting, Nausea, Other - neg: bowel changes. Negative: Diarrhea Positive: other - pos: dark urine. Negative: dysuria, hematuria Neurological: Other - neg: dizziness Positive: Headache - mild All Other Systems Reviewed And Are Negative: Yes Physical Exam - Summary Physical Exam Summary: Appearance: Well appearing, no pain distress Skin: warm, dry, reflects adequate perfusion Head/face: normal Eyes: EOMI, TALIA ENT: mucous membranes moist. Thick yellow white plaque on the tongue, nothing in lower pharynx Neck: supple, non-tender Respiratory: CTA, breath sounds present Cardiovascular: RRR, pulses symmetrical Abdomen: non-tender, soft, no CVA tenderness, no reproducible back pain with palpation. Bowel Sounds: present Musculoskeletal: normal, strength/ROM intact Neuro: normal, sensory motor intact, A&Ox3 Triage Information Reviewed: Yes Vital Signs On Initial Exam: Initial Vitals Temp Pulse Resp BP Pulse Ox 97.3 F 88 16 140/94 93 10/15/18 07:17 10/15/18 07:17 10/15/18 07:17 10/15/18 07:17 10/15/18 07:17 Vital Signs Reviewed: Yes Diagnostics - Vital Signs Vital Signs Temp Pulse Resp BP Pulse Ox 10/15/18 07:25 85 97 10/15/18 07:17 97.3 F 88 16 140/94 93 - Laboratory Result Diagrams: 10/15/18 06:53 10/15/18 06:53 Lab Statement: Any lab studies that have been ordered have been reviewed, and results considered in the medical decision making process. - CT A/P CT CT Interpretation Completed By: Radiologist Summary of CT Findings: IMPRESSION: 1. DIVERTICULOSIS. 2. NO HYDRONEPHROSIS OR NEPHROLITHIASIS. ED provider has reviewed this report. L-SPINE CT CT Interpretation Completed By: Radiologist Summary of CT Findings: IMPRESSION: At L3-L4 degenerative disc disease with broad-based protrusion flattens the thecal sac. At L4-L5 broad-based protrusion flattens the thecal sac with a left posterior lateral disc component which may impinge upon the left exiting nerve root. L5-S1 degenerative disc disease with broad-based protrusion flattening the thecal sac. ED provider has reviewed this report. Re-Evaluation - Re-Evaluation 1 Re-Evaluation Time: 08:45 Change: Unchanged Comment: Obtaining UA. Patient is still having pain. 2 Re-Evaluation Time: 09:15 Change: Improved Comment: Discussing CT and UA results with pt. Back Pain Course/Dx - Course Course Of Treatment: Nurse's notes reviewed. Patient with a history of cancer and complained of back pain. He also has thrush and possible esophagitis. He was given oral Diflucan here. He will continue on this daily. CT scan of the abdomen and pelvis and lumbar spine were obtained and showed no acute inflammatory issue or evidence of metastatic spread. His pain was most improved after IV Toradol. He states that he is unable to take NSAIDs scheduled due to his oral chemotherapy. Laboratories otherwise not significant. He was hydrated here and is feeling well. He is discharged to follow-up with his oncologist. - Diagnoses Differential Diagnosis/HQI/PQRI: Positive: Other - Metastatic spread of cancer, UTI, pyelonephritis, lumbar back pain, renal colic, colitis Provider Diagnoses: Back pain, History of cancer, Esophageal candidiasis Discharge - Sign-Out/Discharge Documenting (check all that apply): Patient Departure - D/C - Discharge Plan Condition: Improved Disposition: HOME Prescriptions: Cyclobenzaprine TAB* [Flexeril 10 MG TAB*] 10 mg PO TID PRN #12 tab PRN Reason: back pain Fluconazole 100 MG TAB* [Diflucan 100 MG TAB*] 200 mg PO DAILY #20 tab Patient Education Materials: Oral Candidiasis (ED), Acute Low Back Pain (ED) Referrals: Nvoa Mcknight MD [Medical Doctor] - Dianne Day MD [Primary Care Provider] - Additional Instructions: Call your oncologist today to discuss ER visit. Inquire if you are able to take anti-inflammatory medications with your cancer drug. If so, take up to 2 Aleve twice daily as needed for back pain. Drink plenty of fluids. Range of motion, stretching exercises may help. If pain continues, physical therapy may be indicated. Follow-up with your doctor as soon as possible. You are able to have your procedure later today as scheduled. - Billing Disposition and Condition Condition: IMPROVED Disposition: Home - Attestation Statements Document Initiated by Fermin: Yes Documenting Scribe: Yazmin David Provider For Whom Fermin is Documenting (Include Credential): Dr. Dequan Arguello MD Scribe Attestation: Yazmin Alas scribed for Dr. Dequan Arguello MD on 10/15/18 at 1101. Scribe Documentation Reviewed: Yes Provider Attestation: The documentation as recorded by the Yazmin puentes accurately reflects the service I personally performed and the decisions made by , Dr. Dequan Arguello MD Status of Scribe Document: Viewed
[2018-10-15 07:52] LABS: Hematocrit 41 % (42-52); Mean Corpuscular HGB Conc 34 g/dl (31-36); Mean Corpuscular Hemoglobin 30 pg (27-31); Mean Corpuscular Volume 89 fL (80-94); Mean Platelet Volume 5.8 fL (7.4-10.4); Platelet Count 280 10^3/ul (150-450); Red Blood Count 4.62 10^6/ul (4.00-5.40); Red Cell Distribution Width 15 % (10.5-15); White Blood Count 11.8 10^3/ul (3.5-10.8)
[2018-10-15 08:11] LABS: Albumin 3.9 g/dL (3.2-5.2); BUN/Creatinine Ratio 22.9 (8-20); Calcium 9.7 mg/dL (8.6-10.3); EGFR Non-African American 80.5 (>60); Globulin 3.8 g/dL (2-4); Potassium 3.9 mmol/L (3.5-5.0); Total Bilirubin 0.5 mg/dL (0.2-1.0); Total Protein 7.7 g/dL (6.4-8.9)
[2018-10-15 08:25] LABS: ABS Basophils 0.1 10^3/ul (0-0.2); ABS Eosinophils 0.1 10^3/ul (0-0.6); ABS Lymphocytes 1.8 10^3/ul (1.0-4.8); ABS Monocytes 1.2 10^3/ul (0-0.8); ABS Neutrophils 8.6 10^3/ul (1.5-7.7); ABS Nucleated RBC 0 10^3/ul; Eosinophil % 1.1 %; Lymphocyte % 15.5 %; Nucleated Red Blood Cells % 0.1
[2018-10-15 08:55] LABS: Urine Appearance Clear; Urine Bilirubin Negative (Negative); Urine Blood Negative (Negative); Urine Color Yellow; Urine Glucose Negative (Negative); Urine Ketones Negative (Negative); Urine Nitrite Negative (Negative); Urine Protein Negative (Negative); Urine Urobilinogen Negative (Negative)
[2018-10-15 09:40] VITALS: BP 128/88
== END | disposition home or self-care (01) ==
LOC: ED 07:15
DX: M54.5 Low back pain (principal); B37.81 Candidal esophagitis; K57.30 Diverticulosis of large intestine without perforation or abscess without bleeding; M51.36 Other intervertebral disc degeneration, lumbar region; R11.2 Nausea with vomiting, unspecified; R51 Headache; R63.4 Abnormal weight loss; K21.9 Gastro-esophageal reflux disease without esophagitis; Z85.46 Personal history of malignant neoplasm of prostate; Z87.891 Personal history of nicotine dependence
CPT/HCPCS: 36415; 72131; 74176; 80053; 81003; 85025; 96361; 96374; 96375; 99282; A9270-GY; J1885; J2270; J2405

== ENCOUNTER 2018-10-19 10:39 | Observation (INO) | payer BC ==
[~2018-10-19 10:39] MED LIST changes: +Dexamethasone IV* 8 MG in NS 0.9% 50 ML* 50 ML IV SCH; -Fluconazole 100 MG TAB* TAB PO ONE; -Ketorolac INJ* 30 MG/ML 1 ML VIAL IV PUSH ONE; -Morphine VIAL* 4 MG/ML VIAL (1 ml vial) IV ONE; -NS 0.9% 1000 ML* 1,000 ML IV ONE; -Ondansetron INJ* 2 MG/ML VIAL IV ONE
[2018-10-19] MEDS ORDERED: Ondansetron INJ* 2 MG/ML VIAL ONE (11:19)
[2018-10-19] MEDS ORDERED: Famotidine IV* 10 MG/ML 2 ML (20 mg) ONE (14:08)
[2018-10-19] MEDS ORDERED: Ondansetron INJ* 2 MG/ML VIAL IV PRN (16:05)
[2018-10-19] MEDS ORDERED: Prochlorperazine TAB* 10 MG PO PRN (16:18)
[2018-10-19] MEDS ORDERED: Enoxaparin(*) 40 MG/0.4 ML SYR SUBCUT SCH (17:00)
[2018-10-19] MEDS: NS 0.9% 1000 ML* 1,000 ML IV SCH (17:30)
[2018-10-19 17:57] LABS: Hematocrit 37 % (42-52); Hemoglobin 12.3 g/dl (14.0-18.0); Mean Corpuscular HGB Conc 34 g/dl (31-36); Mean Corpuscular Hemoglobin 30 pg (27-31); Mean Corpuscular Volume 89 fL (80-94); Mean Platelet Volume 6.2 fL (7.4-10.4); Platelet Count 175 10^3/ul (150-450); Red Blood Count 4.14 10^6/ul (4.00-5.40); Red Cell Distribution Width 15 % (10.5-15); White Blood Count 9.8 10^3/ul (3.5-10.8)
[2018-10-19 18:13] LABS: Albumin 3.5 g/dL (3.2-5.2); Albumin/Globulin Ratio 1.1 (1-3); BUN/Creatinine Ratio 17.3 (8-20); Calcium 8.6 mg/dL (8.6-10.3); EGFR African American 66.8 (>60); EGFR Non-African American 55.2 (>60); Globulin 3.2 g/dL (2-4); Potassium 4.1 mmol/L (3.5-5.0); Total Bilirubin 0.6 mg/dL (0.2-1.0); Total Protein 6.7 g/dL (6.4-8.9)
[2018-10-19 18:23] LABS: ABS Basophils 0 10^3/ul (0-0.2); ABS Eosinophils 0 10^3/ul (0-0.6); ABS Lymphocytes 0.3 10^3/ul (1.0-4.8); ABS Monocytes 0.2 10^3/ul (0-0.8); ABS Neutrophils 9.3 10^3/ul (1.5-7.7); ABS Nucleated RBC 0 10^3/ul; Eosinophil % 0 %; Lymphocyte % 3.1 %; Nucleated Red Blood Cells % 0.1
[2018-10-19] MEDS: predniSONE TAB* 5 MG PO SCH (20:30)
[2018-10-19 20:31] LABS: Urine Appearance Cloudy; Urine Bacteria Absent (Absent); Urine Bilirubin Negative (Negative); Urine Blood Negative (Negative); Urine Color Amber; Urine Glucose Negative (Negative); Urine Ketones Trace (Negative); Urine Nitrite Negative (Negative); Urine Protein 2+(100 mg/dL) (Negative); Urine Red Blood Cell Trace(0-2/hpf) (Absent); Urine Specific Gravity 1.027 (1.010-1.030); Urine Urobilinogen Negative (Negative); Urine White Blood Cell 2+(11-20/hpf) (Absent)
[2018-10-19] MEDS ORDERED: oxyCODONE TAB* 5 MG TAB PO PRN (20:40)
[2018-10-20] MEDS: NS 0.9% 1000 ML* 1,000 ML IV SCH ×2 (00:36→05:41)
[2018-10-20 08:38] LABS: ABS Basophils 0 10^3/ul (0-0.2); ABS Eosinophils 0 10^3/ul (0-0.6); ABS Lymphocytes 0.6 10^3/ul (1.0-4.8); ABS Monocytes 0.3 10^3/ul (0-0.8); ABS Nucleated RBC 0 10^3/ul; Eosinophil % 0 %; Hematocrit 37 % (42-52); Hemoglobin 12.3 g/dl (14.0-18.0); Lymphocyte % 4.7 %; Mean Corpuscular HGB Conc 33 g/dl (31-36); Mean Corpuscular Hemoglobin 30 pg (27-31); Mean Corpuscular Volume 89 fL (80-94); Mean Platelet Volume 6.7 fL (7.4-10.4); Nucleated Red Blood Cells % 0; Platelet Count 198 10^3/ul (150-450); Red Blood Count 4.14 10^6/ul (4.00-5.40); Red Cell Distribution Width 14 % (10.5-15); White Blood Count 11.9 10^3/ul (3.5-10.8)
[2018-10-20 08:54] LABS: Albumin 3.4 g/dL (3.2-5.2); BUN/Creatinine Ratio 23.8 (8-20); Calcium 9.2 mg/dL (8.6-10.3); EGFR African American 113.6 (>60); EGFR Non-African American 93.9 (>60); Globulin 3.5 g/dL (2-4); Magnesium 1.9 mg/dL (1.9-2.7); Potassium 3.9 mmol/L (3.5-5.0); Total Bilirubin 0.5 mg/dL (0.2-1.0); Total Protein 6.9 g/dL (6.4-8.9)
[2018-10-20] MEDS ORDERED: Fluconazole 100 MG TAB* TAB PO SCH (09:00)
[2018-10-20] MEDS: predniSONE TAB* 5 MG PO SCH (10:49)
[2018-10-20] MEDS: NS 0.9% 1000 ML* 2,000 ML IV ONE ×2 (11:09→13:01)
[2018-10-20 15:36] VITALS: BP 116/72
--- NOTE | 2018-10-22 00:21 | DS ---
CC: Dr. Dianne Day; Dr. Nova Mcknight; Dr. Dante Gonzalez * DISCHARGE SUMMARY: DATE OF ADMISSION: 10/19/18 DATE OF DISCHARGE: 10/20/18 PRIMARY CARE PROVIDER: Dr. Dianne Day. PRIMARY ONCOLOGIST: Dr. Nova Mcknight. RADIATION ONCOLOGIST: Dr. Dante Gonzalez. ATTENDING PHYSICIAN: Dr. Ricky Haywood.* (DICTATED BY CARROL BETTENCOURT) DISCHARGING PROVIDER: CARROL Bettencourt. PRIMARY DISCHARGE DIAGNOSIS: Viral gastroenteritis. SECONDARY DISCHARGE DIAGNOSES: 1. Thrush. 2. Head and neck cancer with plans for definitive radiation treatment to start on Monday. 3. Metastatic prostate cancer, currently treated with Zytiga and prednisone, as well as Lupron. DISCHARGE MEDICATIONS: 1. Abiraterone 1000 mg p.o. daily. 2. Vitamin D 10,000 units p.o. daily. 3. Lupron 22 mg subcu q.3 months. 4. Multivitamin 1 tablet p.o. daily. 5. Prednisone 5 mg p.o. twice daily. 6. Clotrimazole lizzy 10 mg p.o. 4 times daily. 7. Famotidine suspension 40 mg per 5 mL, instructions to take 5 mL p.o. daily. 8. Fluconazole 200 mg p.o. daily. 9. Viscous lidocaine 15 mL p.o. 3 times daily as needed for throat pain. HOSPITAL IMAGING: None. HOSPITAL COURSE: This is a 58-year-old gentleman with remote history of lymphoma, currently under surveillance, as well as metastatic prostate cancer and new diagnosis of head and neck cancer, with plans to start definitive radiation therapy on Monday, presented to the oncology clinic the day preceding his admission with complaints of fever. He received hydration in the clinic via IV. Symptom was felt to be viral and he was given instructions on supportive care. He continued to have intermittent fevers in the next overnight period and his oral intake remains quite poor. He then subsequently developed vomiting and diarrhea and returned to the clinic for reevaluation. After fluid bolus and antiemetics, his symptoms had not improved and he was subsequently admitted to the hospital for further supportive care measures. His labs were largely unremarkable and blood cultures that had been taken the day prior were reported as negative at 24 hours. Influenza testing was completed and was also negative. The patient received further IV fluids and the antiemetics and he remained afebrile during his hospitalization. His energy and appetite returned and his nausea and diarrhea slowed. DISPOSITION AND FOLLOWUP PLAN: The patient is being discharged to home. He has plans to start radiation therapy on Monday, which can continue as scheduled. Medications are as listed above. The patient will be closely followed by Oncology following discharge. CARROL BETTENCOURT [id number]/[facility] #: [id number] MTDSalazar
== END 2018-10-20 16:05 | disposition home or self-care (01) ==
LOC: CHOA 10:39 → MED 15:02
PROVIDERS: ADMIT Internal Medicine Hematology & Oncology; ATTEND Internal Medicine Hematology & Oncology
DX: E86.0 Dehydration (principal); R11.2 Nausea with vomiting, unspecified; A08.4 Viral intestinal infection, unspecified; B37.9 Candidiasis, unspecified; R51 Headache; C76.0 Malignant neoplasm of head, face and neck; Z85.46 Personal history of malignant neoplasm of prostate; R50.9 Fever, unspecified
CPT/HCPCS: 36415; 80053; 81003; 81015; 83735; 85025; 87086; 96360; 96361; 96372; 96374; 96375; 99211; 99217; 99220; A9270-GY; G0378; G0463; J1100; J1650; J2405; J7512

== ENCOUNTER 2019-03-06 10:05 | Day surgery (SDC) | payer BC ==
[~2019-03-06 10:05] MED LIST changes: +Buffered Lidocaine 1% SYRIN* 1 ML/SYRINGE INTRADERM ONE; +Dexamethasone IV* 4 MG/ML 1 ML (4 MG) IV SLOW PU ONE; -Dexamethasone IV* 8 MG in NS 0.9% 50 ML* 50 ML IV SCH; +Famotidine TAB* 20 MG PO ONE; +Lactated Ringers 1000 ML Bag* 1,000 ML IV SCH
[2019-03-06] MEDS ORDERED: fentaNYL* 50 MCG/ML 2 ML VIAL (100 MCG VIAL) ONE ×3 (10:32→14:28)
[2019-03-06] MEDS ORDERED: Midazolam* 1 MG/ML 2 ML VIAL (2 MG) ONE (10:32)
[2019-03-06] MEDS ORDERED: Propofol* 10 MG/ML 20 ML BTL ONE (10:32)
[2019-03-06] MEDS ORDERED: Lidocaine 2% PF * 5 ML VIAL ONE (10:32)
[2019-03-06] MEDS ORDERED: Dexamethasone IV* 4 MG/ML 1 ML (4 MG) ONE (10:36)
[2019-03-06] MEDS ORDERED: Buffered Lidocaine 1% SYRIN* 1 ML/SYRINGE INTRADERM ONE (10:36)
[2019-03-06] MEDS ORDERED: Famotidine TAB* 20 MG ONE (10:36)
[2019-03-06] MEDS ORDERED: EPINEPHRINE 1 MG/ML 1 ML VIAL ONE (12:34)
[2019-03-06] MEDS ORDERED: Oxymetazoline 0.05% NASAL SPR* 15 ML BTL ONE (12:34)
[2019-03-06] MEDS ORDERED: Lidocaine 4% TOPICAL* 50 ML TOP.SOLN ONE (12:35)
[2019-03-06] MEDS ORDERED: Naloxone* 0.4 MG/ML 1 ML VIAL IV PRN (12:46)
[2019-03-06] MEDS ORDERED: DiMENhydriNATE IV* 50 MG/ML VIAL IV PUSH PRN (12:46)
[2019-03-06] MEDS ORDERED: Acetaminophen TAB* 325 MG PO PRN (12:46)
[2019-03-06] MEDS ORDERED: Succinylcholine* 20 MG/ML 10 ML VIAL ONE (13:02)
[2019-03-06] MEDS ORDERED: Ondansetron INJ* 2 MG/ML VIAL ONE (13:54)
[2019-03-06] MEDS ORDERED: oxyCODONE/Acetamin 5/325 MG* TAB ONE ×2 (14:28→15:36)
[2019-03-06] MEDS: fentaNYL* 50 MCG/ML 2 ML VIAL (100 MCG VIAL) IV PRN ×3 (14:30→15:37)
[2019-03-06] MEDS: oxyCODONE/Acetamin 5/325 MG* TAB PO PRN ×2 (14:30→15:36)
--- NOTE | 2019-03-06 14:49 | OP ---
DATE OF OPERATION: 03/06/19 - [facility] DATE OF : 60 ATTENDING SURGEON: Cuba Rivas MD. VESSEL CREW MEMBER: None. ANESTHESIA: General. 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 POST-OP DIAGNOSIS: Squamous cell carcinoma of the larynx. OPERATIVE PROCEDURE: Microlaryngoscopy with biopsies. ESTIMATED BLOOD LOSS: Negligible. SPECIMENS: Multiple biopsies, left arytenoid mucosa. COMPLICATIONS: None. INDICATIONS: This is a 58-year-old male who completed radiation treatment for squamous cell carcinoma of the larynx approximately 3-1/2 months ago. On posttreatment PET scan, he was noted to have significant amount of uptake in the region of the left arytenoid. Endoscopically, there did appear to be slight fullness to this region with some ulceration and a little bit of yellowish exudate. The patient clinically had been having increasing pain for the past month and so the decision was made to proceed with microlaryngoscopy with biopsies due to concern for persistent disease. DESCRIPTION OF PROCEDURE: On 03/06/19, the patient was brought to the operating room. General anesthesia was induced. A 6.5 oral endotracheal tube was placed under GlideScope. The table was turned and the patient draped and a time-out was performed. A variety of laryngoscopes were used. Ultimately, a Primo laryngoscope provided good broad field of view. A laryngoscopy revealed an ulcerative lesion with exudate extending from the anterior portion of the left arytenoid down onto the left false cord. The area was also inspected with 12-degree urologic camera. This appeared to be fairly focal with no obvious extension onto or past the level of the true vocal cords. Multiple biopsies were taken. Pictures were also taken of the lesion. Biopsies were placed in formalin for permanent review. The patient was then returned to the care of the anesthesiologist and extubated and delivered to the PACU. [id number]/[facility] #: [id number] [facility]
[2019-03-06 16:56] VITALS: BP 128/92
== END 2019-03-06 16:57 | disposition home or self-care (01) ==
LOC: OR 10:05
PROVIDERS: ATTEND Otolaryngology
DX: 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, unspecified (principal); Z87.891 Personal history of nicotine dependence; 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, extranodal and solid organ sites; Z85.46 Personal history of malignant neoplasm of prostate; K21.9 Gastro-esophageal reflux disease without esophagitis
CPT/HCPCS: 88305; 88342; 88360; A9270-GY; J0330; J1100; J2250; J2405; J2704; J3010

== ENCOUNTER → 2019-11-01 09:53 | Day surgery (SDC) | payer BC ==
[~2019-11-01 09:53] MED LIST changes: +Acetaminophen TAB* 325 MG ONE; +Acetaminophen TAB* 325 MG PO PRN; -Dexamethasone IV* 4 MG/ML 1 ML (4 MG) IV SLOW PU ONE; +Dexamethasone IV* 4 MG/ML 1 ML (4 MG) ONE; +DiMENhydriNATE IV* 50 MG/ML VIAL IV PUSH PRN; -Famotidine TAB* 20 MG PO ONE; +Lidocaine 1% w EPI 1:100,000* MDV 20 ML VIAL ONE; +Lidocaine 4% TOPICAL* 50 ML TOP.SOLN ONE; +Metoclopramide IV* 5 MG/ML 2 ML VIAL ONE; +Midazolam* 1 MG/ML 2 ML VIAL (2 MG) ONE; +Naloxone* 0.4 MG/ML 1 ML VIAL IV PRN; +Ondansetron INJ* 2 MG/ML VIAL ONE; +Oxymetazoline 0.05% NASAL SPR* 15 ML BTL ONE; +Propofol* 10 MG/ML 20 ML BTL ONE; +Succinylcholine* 20 MG/ML 10 ML VIAL ONE; +fentaNYL* 50 MCG/ML 2 ML VIAL (100 MCG VIAL) IV PRN; +fentaNYL* 50 MCG/ML 2 ML VIAL (100 MCG VIAL) ONE; +oxyCODONE/Acetamin 5/325 MG* TAB PO PRN
[2019-11-01 15:31] VITALS: BP 133/87
--- NOTE | 2019-11-02 01:47 | OP ---
DATE OF OPERATION: 11/01/19 [facility] DATE OF : 60 SURGEON: Cuba Rivas MD ANESTHESIA: General. PRE-OP DIAGNOSIS: Necrosis of the right middle turbinate. POST-OP DIAGNOSIS: Necrosis of the right middle turbinate. OPERATIVE PROCEDURE: Debridement of right middle turbinate. ESTIMATED BLOOD LOSS: Less than 30 cc. SPECIMENS: Fragments of right middle turbinate. COMPLICATIONS: None. DESCRIPTION OF PROCEDURE: This is a 59-year-old male who has had chronic inflammation and abnormal appearance of the right middle turbinate. He has had head and neck radiation in the past. Biopsies in the office were negative for neoplasm or invasive fungal infection. 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 Sinuses were all clear on preoperative imaging. The patient was brought to the operating room, general anesthesia was induced. The patient was orally intubated. He was draped and a time-out was performed. The right nasal cavity was packed with pledgets soaked with Afrin and lidocaine. Once adequate time had been allotted for vasoconstriction, the middle turbinate was then examined, was covered with exudate. It was injected with 1% lidocaine with 1:100,000 epinephrine. A variety of cutting instruments including straight and angled thru-cutters were used to resect the majority of the substance of the middle turbinate. The specimen was all retained for permanent section and sent to pathology for review. There was some bleeding, although less than what would be expected from this structure. Small submucosal bleeding posteriorly was controlled with an endoscopic bipolar forceps. A little bit of Fibrillar was then placed against the cut edge of the turbinate to assist with hemostasis. The patient was returned to the care of the anesthesiologist, extubated and delivered to the PACU. [id number]/[facility] #: [id number] YAJAIRA
== END | disposition home or self-care (01) ==
LOC: OR 09:53
PROVIDERS: ATTEND Otolaryngology
DX: C30.0 Malignant neoplasm of nasal cavity (principal); 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, unspecified; J32.9 Chronic sinusitis, unspecified; Z87.891 Personal history of nicotine dependence; Z85.46 Personal history of malignant neoplasm of prostate; K21.9 Gastro-esophageal reflux disease without esophagitis
CPT/HCPCS: 88305; 88311; 88312; 88341; 88342; A9270-GY; J0330; J1100; J2250; J2405; J2704; J2765; J3010

== ENCOUNTER → 2019-11-25 13:40 | Day surgery (SDC) | payer BC ==
[~2019-11-25 13:40] MED LIST changes: +Acetaminophen TAB* 325 MG PO ONE; -Acetaminophen TAB* 325 MG PO PRN; +Bupivacaine 0.25% SDV PF* 10 ML VIAL INJ ONE; -DiMENhydriNATE IV* 50 MG/ML VIAL IV PUSH PRN; +KETAMINE HCL* 50 MG/ML 10 ML VIAL ONE; +Ketorolac INJ* 30 MG/ML 1 ML VIAL ONE; -Lidocaine 1% w EPI 1:100,000* MDV 20 ML VIAL ONE; +Lidocaine 2% PF * 5 ML VIAL ONE; -Lidocaine 4% TOPICAL* 50 ML TOP.SOLN ONE; -Metoclopramide IV* 5 MG/ML 2 ML VIAL ONE; +Midazolam* 1 MG/ML 10 ML VIAL (10 MG) ONE; -Midazolam* 1 MG/ML 2 ML VIAL (2 MG) ONE; +Ondansetron INJ* 2 MG/ML VIAL IV PRN; -Oxymetazoline 0.05% NASAL SPR* 15 ML BTL ONE; -Succinylcholine* 20 MG/ML 10 ML VIAL ONE; +ceFAZolin 2 GM in NS PREMIX(*) 2 GM/100 ML BAG IVPB ONE; +diPHENhydraMINE IV* 50 MG/ML 1 ml VIAL (BENADRYL) IV PRN; -fentaNYL* 50 MCG/ML 2 ML VIAL (100 MCG VIAL) IV PRN; +oxyCODONE TAB* 5 MG TAB ONE; +oxyCODONE TAB* 5 MG TAB PO PRN; -oxyCODONE/Acetamin 5/325 MG* TAB PO PRN
[2019-11-25 18:36] VITALS: BP 153/102
--- NOTE | 2019-11-26 11:58 | OP ---
DATE OF OPERATION: 11/25/19 - [facility] DATE OF : 60 ATTENDING SURGEON: Cruz Wilson MD AREA CAPTAIN: No first dyer. PRE-OP DIAGNOSIS: Lymphoma. POST-OP DIAGNOSIS: Lymphoma. OPERATIVE PROCEDURE: Placement of left subclavian approach PowerPort. INDICATIONS FOR PROCEDURE: Requiring PowerPort for treatment of malignancy. Risks included but not limited to bleeding, infection and pneumothorax explained to the patient. He seemed to understand and agreed to the procedure and all questions were answered. DESCRIPTION OF PROCEDURE: The patient was taken to the operating room, placed supine. Preoperative antibiotics were given. After the successful induction of MAC anesthesia, the left chest was prepped and draped in sterile fashion. Skin was anesthetized with plain lidocaine. Time-out had been performed. The patient was placed in a Trendelenburg position. Needle was placed in the left subclavian vein using Seldinger technique. A wire was passed through the needle. Over the wire was passed a dilator and a split sheath and the catheter was passed through the split sheath to the superior vena cava and detected by fluoroscopy. The split sheath was removed. The catheter was tunneled under the skin to the subcutaneous pocket made below this on the chest, connected to the PowerPort which aspirated blood easily and flushed nicely. The pocket was closed in layers using 3-0 Monocryl. Glue was applied to the skin. Fluoroscopy confirmed good position. The patient tolerated the procedure well. He was taken to recovery in stable condition. [id number]/CPS #: [id number] MTDD
== END | disposition home or self-care (01) ==
LOC: OR 13:40
PROVIDERS: ATTEND Surgery
DX: C86.0 Extranodal NK/T-cell lymphoma, nasal type (principal); Z87.891 Personal history of nicotine dependence; Z85.46 Personal history of malignant neoplasm of prostate; Z85.21 Personal history of malignant neoplasm of larynx; K21.9 Gastro-esophageal reflux disease without esophagitis
CPT/HCPCS: 71045; 76000; A9270-GY; C1788; J0690; J1100; J1642; J1885; J2250; J2405; J2704; J3010; J3490

== ENCOUNTER 2019-12-12 09:14 | Inpatient (IN) | payer BC ==
[~2019-12-12 09:14] MED LIST changes: -Acetaminophen TAB* 325 MG ONE; -Acetaminophen TAB* 325 MG PO ONE; -Buffered Lidocaine 1% SYRIN* 1 ML/SYRINGE INTRADERM ONE; -Bupivacaine 0.25% SDV PF* 10 ML VIAL INJ ONE; -Dexamethasone IV* 4 MG/ML 1 ML (4 MG) ONE; +KCL IVPB SCH; -KETAMINE HCL* 50 MG/ML 10 ML VIAL ONE; -Ketorolac INJ* 30 MG/ML 1 ML VIAL ONE; -Lactated Ringers 1000 ML Bag* 1,000 ML IV SCH; -Lidocaine 2% PF * 5 ML VIAL ONE; +MAGNESIUM SULFATE IVPB SCH; -Midazolam* 1 MG/ML 10 ML VIAL (10 MG) ONE; +NS IVPB SCH; -Naloxone* 0.4 MG/ML 1 ML VIAL IV PRN; -Ondansetron INJ* 2 MG/ML VIAL IV PRN; -Ondansetron INJ* 2 MG/ML VIAL ONE; -Propofol* 10 MG/ML 20 ML BTL ONE; -ceFAZolin 2 GM in NS PREMIX(*) 2 GM/100 ML BAG IVPB ONE; -diPHENhydraMINE IV* 50 MG/ML 1 ml VIAL (BENADRYL) IV PRN; -fentaNYL* 50 MCG/ML 2 ML VIAL (100 MCG VIAL) ONE; -oxyCODONE TAB* 5 MG TAB ONE; -oxyCODONE TAB* 5 MG TAB PO PRN
[2019-12-12 09:56] LABS: ABS Neutrophils 2.1 10^3/ul (1.5-7.7); Hematocrit 37 % (42-52); Hemoglobin 12.4 g/dL (14.0-18.0); Mean Corpuscular HGB Conc 33 g/dL (31-36); Mean Corpuscular Hemoglobin 29 pg (27-31); Mean Corpuscular Volume 88 fL (80-94); Mean Platelet Volume 6.6 fL (7.4-10.4); Platelet Count 66 10^3/uL (150-450); Red Blood Count 4.23 10^6 /uL (4.18-5.48); Red Cell Distribution Width 15 % (10-15); White Blood Count 2.8 10^3/uL (3.5-10.8)
[2019-12-12 10:02] LABS: Activated Partial Thrombo Time 30.3 seconds (26.0-38.0); Fibrinogen 208.3 mg/dL (110.8-404.3)
[2019-12-12 10:07] LABS: Albumin 3.2 g/dL (3.2-5.2); Albumin/Globulin Ratio 1.4 (1-3); BUN/Creatinine Ratio 6.5 (8-20); Calcium 8.2 mg/dL (8.6-10.3); EGFR African American 101.9 (>60); EGFR Non-African American 84.2 (>60); Globulin 2.3 g/dL (2-4); Magnesium 1.6 mg/dL (1.9-2.7); Potassium 3.1 mmol/L (3.5-5.0); Total Bilirubin 0.9 mg/dL (0.2-1.0); Total Protein 5.5 g/dL (6.4-8.9)
[2019-12-12 10:32] LABS: ABS Lymphocytes 0.3 10^3/ul (1.0-4.8); ABS Monocytes 0.3 10^3/ul (0-0.8); Eosinophil % 1.4 %; Lymphocyte % 10.6 %; Nucleated Red Blood Cells % 0.2
[2019-12-12] MEDS ORDERED: Ondansetron INJ* 2 MG/ML VIAL IV PRN (16:16)
[2019-12-12] MEDS ORDERED: Lorazepam PYXIS KEY PRN (16:16)
[2019-12-12] MEDS ORDERED: LORazepam INJ* 2 MG/ML 1 ML VIAL IV PUSH PRN (16:16)
[2019-12-12] MEDS ORDERED: Dronabinol CAP* 2.5 MG PO PRN (17:02)
[2019-12-12] MEDS: metroNIDAZOLE IV 500 MG/100ML* 500 MG/100 ML BAG IVPB SCH (17:48)
[2019-12-12] MEDS: NS 0.9% w/ 40 Meq KCL 1000 ML* 1,000 ML IV SCH (17:53)
[2019-12-12] MEDS ORDERED: Scopolamine 1.5 mg* PATCH TRANSDERM SCH (18:00)
[2019-12-12] MEDS: Clotrimazole TROCHE* 10 MG TROCHE PO SCH ×2 (18:04→21:26)
[2019-12-12] MEDS: Ciprofloxacin 400MG IVPREMIX(* 400 MG/200 ML BAG IVPB SCH (19:15)
[2019-12-12] MEDS: Famotidine IV* 10 MG/ML 2 ML (20 mg) IV SLOW PU SCH (21:25)
[2019-12-12] MEDS: HYDROmorphone INJ* 0.5 MG/0.5 ML SYRINGE IV SLOW PU PRN (21:25)
[2019-12-13] MEDS: metroNIDAZOLE IV 500 MG/100ML* 500 MG/100 ML BAG IVPB SCH ×3 (00:03→16:55)
[2019-12-13 05:03] LABS: Hematocrit 33 % (42-52); Hemoglobin 11.1 g/dL (14.0-18.0); Mean Corpuscular HGB Conc 34 g/dL (31-36); Mean Corpuscular Hemoglobin 30 pg (27-31); Mean Corpuscular Volume 89 fL (80-94); Mean Platelet Volume 6.2 fL (7.4-10.4); Platelet Count 58 10^3/uL (150-450); Red Blood Count 3.67 10^6 /uL (4.18-5.48); Red Cell Distribution Width 15 % (10-15); White Blood Count 3.5 10^3/uL (3.5-10.8)
[2019-12-13 05:16] LABS: Albumin 2.8 g/dL (3.2-5.2); Albumin/Globulin Ratio 1.3 (1-3); BUN/Creatinine Ratio 4.2 (8-20); Calcium 7.8 mg/dL (8.6-10.3); EGFR African American 137.4 (>60); EGFR Non-African American 113.6 (>60); Globulin 2.1 g/dL (2-4); Potassium 4.3 mmol/L (3.5-5.0); Total Bilirubin 0.5 mg/dL (0.2-1.0); Total Protein 4.9 g/dL (6.4-8.9)
[2019-12-13 05:43] LABS: ABS Lymphocytes 0.2 10^3/ul (1.0-4.8); ABS Monocytes 0.4 10^3/ul (0-0.8); ABS Neutrophils 2.8 10^3/ul (1.5-7.7); Eosinophil % 0.9 %; Nucleated Red Blood Cells % 0.1
[2019-12-13] MEDS: Clotrimazole TROCHE* 10 MG TROCHE PO SCH ×5 (05:47→22:11)
[2019-12-13] MEDS: Ciprofloxacin 400MG IVPREMIX(* 400 MG/200 ML BAG IVPB SCH ×2 (05:47→18:25)
[2019-12-13] MEDS: NS 0.9% w/ 40 Meq KCL 1000 ML* 1,000 ML IV SCH (05:48)
[2019-12-13] MEDS: Famotidine IV* 10 MG/ML 2 ML (20 mg) IV SLOW PU SCH ×2 (07:51→22:12)
--- NOTE | 2019-12-13 10:36 | PN ---
Progress Note - Progress Note Date of Service: 12/13/19 SOAP: Subjective: Patient reports he is feeling 40% improvement from yesterday. He reports he had some nausea overnight, but no vomiting. He reports mild pain, currently 4/10 in lower abdomen. He reports he had 2 bowel movements this morning, but were soft and no blood noted. Objective: Clotrimazole (Mycelex Ivelisse*) 10 mg PO FIVE TIMES DAILY VAMSHI Last Admin: 12/13/19 09:43 Dose: Not Given Dronabinol (Marinol Cap*) 5 mg PO TID PRN PRN Reason: CRAVING Last Admin: 12/12/19 18:03 Dose: 5 mg Famotidine (Pepcid Iv*) 20 mg IV SLOW PU BID VAMSHI Last Admin: 12/13/19 07:51 Dose: 20 mg Hydromorphone HCl (Dilaudid Inj*) 0.5 mg IV SLOW PU Q4H PRN PRN Reason: PAIN - MODERATE Last Admin: 12/12/19 21:25 Dose: 0.5 mg Ciprofloxacin/Dextrose (Cipro 400 Mg Ivpremix(*)) 400 mg in 200 mls @ 200 mls/ hr IVPB Q12H VAMSHI; Protocol Last Admin: 12/13/19 05:47 Dose: 200 mls/hr Metronidazole/Sodium Chloride (Flagyl 500 Mg Ivpb*) 500 mg in 100 mls @ 100 mls /hr IVPB Q8H VAMSHI Last Admin: 12/13/19 09:40 Dose: 100 mls/hr Sodium Chloride (Ns 0.9% 1000 Ml) 1,000 mls @ 100 mls/hr IV PER RATE [facility] Lorazepam (Ativan Inj*) 0.5 mg IV PUSH Q4H PRN PRN Reason: Anxiety/Nausea/Insomnia Miscellaneous (Ativan Pyxis Shah) 1 ea N/A .ATIVAN IV SHAH PRN PRN Reason: PYXIS SHAH Ondansetron HCl (Zofran Inj*) 4 mg IV Q6H PRN PRN Reason: NAUSEA Scopolamine (Transderm-Scop 1.5 Mg Patch*) 1 patch TRANSDERM Q72H [facility] Last Admin: 12/12/19 19:13 Dose: 1 patch Vital Signs Temp Pulse Resp BP Pulse Ox 98.1 F 84 16 130/74 96 12/13/19 07:15 12/13/19 07:15 12/13/19 08:00 12/13/19 07:15 12/13/19 07:15 Laboratory Results - last 24 hr 12/12/19 12/13/19 12/13/19 09:40 04:32 04:32 WBC 3.5 RBC 3.67 L Hgb 11.1 L Hct 33 L MCV 89 MCH 30 MCHC 34 RDW 15 Plt Count 58 L MPV 6.2 L Neut % (Auto) 76.7 80.9 Lymph % (Auto) 10.6 7.0 [place] % (Auto) 10.8 10.8 Eos % (Auto) 1.4 0.9 Baso % (Auto) 0.5 0.4 Absolute Neuts (auto) 2.8 Absolute Lymphs (auto) 0.3 L 0.2 L Absolute Monos (auto) 0.3 0.4 Absolute Eos (auto) 0.0 0.0 Absolute Basos (auto) 0.0 0.0 Absolute Nucleated RBC 0.0 0.0 Nucleated RBC % 0.2 0.1 Sodium 136 Potassium 4.3 Chloride 102 Carbon Dioxide 30 Anion Gap 4 BUN 3 L Creatinine 0.71 Est GFR ( Amer) 137.4 Est GFR (Non-Af Amer) 113.6 BUN/Creatinine Ratio 4.2 L Glucose 88 Calcium 7.8 L Magnesium 2.0 Total Bilirubin 0.50 AST 57 H ALT 98 H Alkaline Phosphatase 68 Total Protein 4.9 L Albumin 2.8 L Globulin 2.1 Albumin/Globulin Ratio 1.3 Vital Signs: Temp Pulse Resp BP Pulse Ox 98.1 F 84 16 130/74 96 12/13/19 07:15 12/13/19 07:15 12/13/19 08:00 12/13/19 07:15 12/13/19 07:15 Exam: General- well appearing, in no acute distress HEENT: normocephalic/atraumatic Resp: normal, non-labored. Cardiac: HRR, no murmur noted. 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 He unfortunately developed severe nausea and a GI bleed with work- up revealing diverticulitis on imaging. Attempts to manage as outpatient failed due to inability to tolerate po intake. He is feeling better this morning in terms of pain, nausea, vomiting and diarrhea. Plan: 1. Diverticulitis: - Continue IV Cipro 400 mg BID and Flagyl 500 mg q8hrs - IV antiemetics and pain meds as needed. - Strict I&Os to monitor UO 2. Hydration: - NS 100mL/hr. 3. Hypokalemia: - Potassium improved to 4.3 today, will hold IV potassium. May consider oral supplementation if able to tolerate po intake. 4. Continue neutropenic precautions. 5. Thrush: - Continue clotrimazole 6. Repeat CBC, CMP, Mg in AM 7. NK/T cell lymphoma - hold therapy until recovered from current acute illness, will reassess at discharge. - C1 given on 12/02/2019, due for C2 on 12/16/2019. Oncology will continue to monitor.
[2019-12-13] MEDS: NS 0.9% 1000 ML** 1,000 ML IV SCH ×2 (11:19→22:12)
[2019-12-13] MEDS ORDERED: Acetaminophen TAB* 325 MG PO PRN (15:29)
[2019-12-13] MEDS: HYDROmorphone INJ* 0.5 MG/0.5 ML SYRINGE IV SLOW PU PRN ×2 (15:45→22:11)
[2019-12-14] MEDS: metroNIDAZOLE IV 500 MG/100ML* 500 MG/100 ML BAG IVPB SCH ×2 (00:43→08:20)
[2019-12-14] MEDS: Clotrimazole TROCHE* 10 MG TROCHE PO SCH (05:35)
[2019-12-14] MEDS: Ciprofloxacin 400MG IVPREMIX(* 400 MG/200 ML BAG IVPB SCH (05:39)
[2019-12-14 06:19] LABS: Hematocrit 32 % (42-52); Mean Corpuscular HGB Conc 34 g/dL (31-36); Mean Corpuscular Hemoglobin 30 pg (27-31); Mean Corpuscular Volume 89 fL (80-94); Platelet Count 71 10^3/uL (150-450); Red Blood Count 3.63 10^6 /uL (4.18-5.48); Red Cell Distribution Width 15 % (10-15); White Blood Count 3.2 10^3/uL (3.5-10.8)
[2019-12-14 06:30] LABS: Albumin 2.9 g/dL (3.2-5.2); Albumin/Globulin Ratio 1.2 (1-3); BUN/Creatinine Ratio 2.6 (8-20); Calcium 8.3 mg/dL (8.6-10.3); Globulin 2.4 g/dL (2-4); Magnesium 1.7 mg/dL (1.9-2.7); Potassium 3.7 mmol/L (3.5-5.0); Total Bilirubin 0.6 mg/dL (0.2-1.0); Total Protein 5.3 g/dL (6.4-8.9)
[2019-12-14 06:46] LABS: ABS Lymphocytes 0.2 10^3/ul (1.0-4.8); ABS Monocytes 0.5 10^3/ul (0-0.8); ABS Neutrophils 2.4 10^3/ul (1.5-7.7); Eosinophil % 0.9 %; Lymphocyte % 7.6 %
--- NOTE | 2019-12-14 07:47 | DS ---
- Discharge Summary ADMIT DATE:12/12/2019 DISCHARGE DATE: 12/14/2019 DISCHARGE CONDITION:STABLE DISCHARGE DISPO:HOME DISCHARGE FOLLOW UP: Dr. Blair 12/15 at 8 am DISCHARGE ACTIVITY: TOLERATED DISCHARGE DIET: CLEARS DISCHARGE MEDS: Home Medications Medication Instructions Recorded Confirmed Type Multivitamin [Multivitamins] 1 tab PO QAM 11/14/17 12/12/19 History Leuprolide KIT 22.5 MG (NF) 22.5 mg IM .Q 3 MONTHS 03/07/19 12/12/19 History [Lupron Depot-3 (NF)] Cholecalciferol (Vitamin D3) 5,000 unit PO DAILY 12/12/19 12/12/19 History Clotrimazole IVELISSE* [Mycelex 10 mg MT SEE INSTRUCTIONS 12/12/19 12/12/19 History Ivelisse*] Dronabinol CAP* [Marinol CAP*] 5 mg PO TID PRN 12/12/19 12/12/19 History Hydrocodone/Acetaminophen 15 ml PO Q6HR PRN 12/12/19 12/12/19 History [Hydrocodone-Acetamn 7.5-325/15] LORazepam TAB(*) [Ativan 0.5 MG 0.5 mg PO Q6H PRN 12/12/19 12/12/19 History TAB (*)] Levofloxacin TAB* [Levaquin 750 MG 750 mg PO DAILY 12/12/19 12/12/19 History TAB*] Loratadine 10 mg PO DAILY 12/12/19 12/12/19 History Omeprazole 20 mg PO DAILY 12/12/19 12/12/19 History Ondansetron TAB* [Zofran 4 MG Tab*] 4 mg PO Q4HR PRN 12/12/19 12/12/19 History Scopolamine 1.5 mg* PATCH* 1 patch TRANSDERM Q72H 12/12/19 12/12/19 History [Transderm-Scop 1.5 mg Patch*] metroNIDAZOLE * [Flagyl] 500 mg PO Q8H 12/12/19 12/12/19 History HOSPITAL COURSE: 59 yo M w PMH of NK-T cell lymphoma recently relapsed sp cycle 1 of gemcitabine/ oxaliplatin/pegaspargase who we managed for 3 days outpatient for diverticulitis , but eventually failed requiring inpatient admission, NPO, and hydration. His presentation was that of nausea, vomiting, abdominal pain and bloody stools and so his prophylactic lovenox (for thrombotic risk with pegaspargase) was held. His Hb did drop 3 points over 4 days, however he was clearly hemoconcentrated on presentation. He is no longer having bloody stools. His abdominal pain is 1 /10 at most currently and he is tolerating clears. He did have an episode of mild confusion after being awoken at 3 am on the day of discharge but is completely coherent currently. He will be discharged with fu with me on Monday and we will very likely delay his treatment one week. He will stay on clears through the weekend and will call me or return to ER with any worsening abdominal pain. >30 mins spent, >50% in face to face counseling
[2019-12-14 09:16] VITALS: BP 139/82
[2019-12-14] MEDS: Famotidine IV* 10 MG/ML 2 ML (20 mg) IV SLOW PU SCH (10:14)
== END 2019-12-14 10:40 | disposition home or self-care (01) | DRG 244 ==
LOC: CHOA 09:14 → MEDTELE 16:16
PROVIDERS: ADMIT Internal Medicine Hematology & Oncology; ATTEND Internal Medicine Hematology & Oncology
DX: K57.33 Diverticulitis of large intestine without perforation or abscess with bleeding (principal); C84 Mature T/NK-cell lymphomas; C61 Malignant neoplasm of prostate; 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, unspecified; E87.6 Hypokalemia; B37.9 Candidiasis, unspecified; Z87.891 Personal history of nicotine dependence; Z79.899 Other long term (current) drug therapy
CPT/HCPCS: 36415; 80053; 83735; 85025; 85384; 85730; 96361; 96365; 96366; 96368; 96375; 99215; 99222; 99232; A9270-GY; G0463; J0744; J1170; J1642; J3475; J3480

== ENCOUNTER 2019-12-14 23:01 | Inpatient (IN) | payer BC ==
[2019-12-14] MEDS ORDERED: NS 0.9% 1000 ML** 1,000 ML IV ONE (23:08)
[2019-12-14] MEDS ORDERED: Iohexol 300* (CONTRAST) 10 ML SDV IV ONE (23:33)
--- NOTE | 2019-12-14 23:42 | ED ---
HPI Febrile Illness - HPI Summary HPI Summary: 59 year old M presents to [facility] via private car accompanied by his with a chief complaint of a fever. Patient visited [facility] on 12/12/2019 for evaluation of diverticulitis Dr. Blair. Per Dr. Blair, "The patient has a PMH of NK-T cell lymphoma and recently relapsed sp cycle 1 of gemcitabine/oxaliplatin/ pegaspargase who they managed for 3 days outpatient for diverticulitis, but eventually failed requiring inpatient admission, NPO, and hydration. His presentation was that of nausea, vomiting, abdominal pain and bloody stools and so his prophylactic lovenox (for thrombotic risk with pegaspargase) was held. His Hb did drop 3 points over 4 days, however he was clearly hemoconcentrated on presentation". The patient was discharged and presented this visit with a fever. Abdominal pain is present as well. The patient consulted with Dr. Blair , who recommended she visit [facility]. Home Medications Medication Instructions Recorded Confirmed Type Multivitamin [Multivitamins] 1 tab PO QAM 11/14/17 12/12/19 History Leuprolide KIT 22.5 MG (NF) 22.5 mg IM .Q 3 MONTHS 03/07/19 12/12/19 History [Lupron Depot-3 (NF)] Cholecalciferol (Vitamin D3) 5,000 unit PO DAILY 12/12/19 12/12/19 History Clotrimazole IVELISSE* [Mycelex 10 mg MT SEE INSTRUCTIONS 12/12/19 12/12/19 History Ivelisse*] Dronabinol CAP* [Marinol CAP*] 5 mg PO TID PRN 12/12/19 12/12/19 History Hydrocodone/Acetaminophen 15 ml PO Q6HR PRN 12/12/19 12/12/19 History [Hydrocodone-Acetamn 7.5-325/15] LORazepam TAB(*) [Ativan 0.5 MG 0.5 mg PO Q6H PRN 12/12/19 12/12/19 History TAB (*)] Levofloxacin TAB* [Levaquin 750 MG 750 mg PO DAILY 12/12/19 12/12/19 History TAB*] Loratadine 10 mg PO DAILY 12/12/19 12/12/19 History Omeprazole 20 mg PO DAILY 12/12/19 12/12/19 History Ondansetron TAB* [Zofran 4 MG Tab*] 4 mg PO Q4HR PRN 12/12/19 12/12/19 History Scopolamine 1.5 mg* PATCH* 1 patch TRANSDERM Q72H 12/12/19 12/12/19 History [Transderm-Scop 1.5 mg Patch*] metroNIDAZOLE * [Flagyl] 500 mg PO Q8H 12/12/19 12/12/19 History - History of Current Complaint Time Seen by Provider: 12/14/19 23:07 Hx Obtained From: Patient, Medical Records Initial Severity: Moderate Pain Intensity: 6 Pain Scale Used: 0-10 Numeric Associated Signs and Symptoms: Other: - fever - Additional Pertinent History Primary Care Physician: HOWARD - Allergy/Home Medications Allergies/Adverse Reactions: Allergies Allergy/AdvReac Type Severity Reaction Status Date / Time No Known Allergies Allergy Verified 12/15/19 00:24 Home Medications: Home Medications Multivitamin [Multivitamins] 1 tab PO QAM 11/14/17 [History Confirmed 12/15/19] Leuprolide KIT 22.5 MG (NF) [Lupron Depot-3 (NF)] 22.5 mg IM .Q 3 MONTHS [History Confirmed 12/15/19] Cholecalciferol (Vitamin D3) 5,000 unit PO DAILY 12/12/19 [History Confirmed ] Clotrimazole IVELISSE* [Mycelex Ivelisse*] 10 mg MT SEE INSTRUCTIONS 12/12/19 [ History Confirmed 12/15/19] Dronabinol CAP* [Marinol CAP*] 5 mg PO TID PRN 12/12/19 [History Confirmed 12/14] Hydrocodone/Acetaminophen [Hydrocodone-Acetamn 7.5-325/15] 15 ml PO Q6HR PRN [History Confirmed 12/15/19] LORazepam TAB(*) [Ativan 0.5 MG TAB (*)] 0.5 mg PO Q6H PRN 12/12/19 [History Confirmed 12/15/19] Levofloxacin TAB* [Levaquin 750 MG TAB*] 750 mg PO DAILY 12/12/19 [History Confirmed 12/15/19] Loratadine 10 mg PO DAILY 12/12/19 [History Confirmed 12/15/19] Omeprazole 20 mg PO DAILY 12/12/19 [History Confirmed 12/15/19] Ondansetron TAB* [Zofran 4 MG Tab*] 4 mg PO Q4HR PRN 12/12/19 [History Confirmed 12/15/19] Scopolamine 1.5 mg* PATCH* [Transderm-Scop 1.5 mg Patch*] 1 patch TRANSDERM Q72H 12/12/19 [History Confirmed 12/15/19] metroNIDAZOLE * [Flagyl] 500 mg PO Q8H 12/12/19 [History Confirmed 12/15/19] PMH/Surg Hx/FS Hx/Imm Hx Endocrine/Hematology History: Denies: Hx Diabetes, Hx Sickle Cell Disease Cardiovascular History: Denies: Hx Hypertension, Hx Pacemaker/ICD, Other Cardiovascular Problems/ Disorders Respiratory History: Reports: Other Respiratory Problems/Disorders - NK/T cell lymphoma, nasal type 2015, Larynx SCC 2018 Denies: Hx Sleep Apnea GI History: Reports: Hx Gastroesophageal Reflux Disease, Other GI Disorders - Diverticulitis History: Reports: Other Problems/Disorders - Prostate cancer 2006-radical prostatectomy Denies: Hx Dialysis, Hx Renal Disease Musculoskeletal History: Denies: Other Musculoskeletal History Sensory History: Denies: Hx Cataracts, Hx Contacts or Glasses, Hx Glaucoma, Hx Hearing Aid Opthamlomology History: Denies: Hx Cataracts, Hx Contacts or Glasses, Hx Glaucoma Neurological History: Denies: Other Neuro Impairments/Disorders Psychiatric History: Denies: Hx Panic Disorder - Cancer History Cancer Type, Location and Year: PROSTATE. THROAT Hx Chemotherapy: Yes - 2016 Lymphoma, nasal type and radiation, prostate 2006, larynx 2019 Hx Radiation Therapy: Yes - Surgical History Surgery Procedure, Year, and Place: Radical [facility] Hx Anesthesia Reactions: No Infectious Disease History: No Infectious Disease History: Denies: Traveled Outside the [place] in Last 30 Days - Family History Known Family History: Negative: Respiratory Disease, Seizure Disorder Family History: No FHx of CA. - Social History Alcohol Use: None Hx Substance Use: No Substance Use Type: Reports: None Hx Tobacco Use: Yes - quit 20 yrs ago, 20 pk history Smoking Status (MU): Former Smoker Type: Cigarettes Amount Used/How Often: 3 PPD for 20 years Have You Smoked in the Last Year: No Review of Systems Positive: Fever - 101 Farenheit Positive: Abdominal Pain All Other Systems Reviewed And Are Negative: Yes Physical Exam - Summary Physical Exam Summary: Constitutional: Well-developed, Well-nourished, Alert. (-) Distressed Skin: Warm, Dry HENT: Normocephalic; Atraumatic Eyes: Conjunctiva normal Neck: Musculoskeletal ROM normal neck. (-) JVD, (-) Stridor, (-) Tracheal deviation Cardio: Rhythm regular, rate normal, Heart sounds normal; Intact distal pulses; The pedal pulses are 2+ and symmetric. Radial pulses are 2+ and symmetric. (-) Murmur Pulmonary/Chest wall: Effort normal. (-) Respiratory distress, (-) Wheezes, (-) Rales Abd: Soft, (+) mid-abdominal tenderness, (-) Distension, (-) Guarding, (-) Rebound Musculoskeletal: (-) Edema Lymph: (-) Cervical adenopathy Neuro: Alert, Oriented x3 Psych: Mood and affect Normal Triage Information Reviewed: Yes Vital Signs On Initial Exam: Initial Vitals Temp Pulse Resp BP Pulse Ox 101 F 95 18 115/87 93 12/14/19 23:24 12/14/19 23:24 12/14/19 23:24 12/14/19 23:24 12/14/19 23:24 Vital Signs Reviewed: Yes Procedures - Sedation Patient Received Moderate/Deep Sedation with Procedure: No Diagnostics - Vital Signs Vital Signs Temp Pulse Resp BP Pulse Ox 12/14/19 23:24 101 F 95 18 115/87 93 - Laboratory Result Diagrams: 12/14/19 00:00 12/14/19 00:00 Lab Statement: Any lab studies that have been ordered have been reviewed, and results considered in the medical decision making process. - CT CT ABD/PEL CT Interpretation Completed By: Radiologist Summary of CT Findings: IMPRESSION: 1. Left adrenal lipoma, myelolipoma, or adrenal adenoma. 2. Status post TURP procedure. 3. Colonic diverticulosis. 4. Two nodules in the subcutaneous fat of the left buttock suggesting sebaceous. cysts. THIS REPORT WAS REVIEWED BY ED PHYSICIAN. Course/Dx - Course Course Of Treatment: Patient presented to [facility] with a chief complaint of a fever. The patient visited [facility] on 12/12/2019 for diverticulitis and again on 12/14/2019 at 0740 due to failure of managing relapse of sp cycle 1 gemcitabine/ oxaliplatin/pegapargase. The patient was positive for mid-abdominal tenderness. His bloodwork had the following abnormalities: 134 sodium, 3.1 potassium, 97 chloride, 2 BUN, 2.7 BUN/creatinine ratio, 8.3 calcium, 78 AST, 92 ALT, 5.5 total protein. During ED course, patient received fluids, Ativan [address] Bauer discussed the care of the patient with Dr. Yousif, and Dr. Yousif agreed to admit the patient. - Diagnoses Provider Diagnoses: Diverticulitis, Hypokalemia - Provider Notifications Discussed Care Of Patient With: Reyes Yousif Time Discussed With Above Provider: 01:22 Instructed by Provider To: Other - Dr. Bauer discussed the care of the patient with Dr. Yousif. Dr. Yousif agreed to admit the patient. Discharge ED - Sign-Out/Discharge Documenting (check all that apply): Patient Departure - Admitted. - Discharge Plan Condition: Stable Disposition: ADMITTED TO [facility] - Billing Disposition and Condition Condition: STABLE Disposition: Admitted to [facility] - Attestation Statements Document Initiated by Dhaval: Yes Documenting Scribe: Korin Guzmán Provider For Whom Dhaval is Documenting (Include Credential): Imer Bauer DO Scribkyle Attestation: Korin Alas, kateibed for Imer Bauer DO on at 0401. Scribe Documentation Reviewed: Yes Provider Attestation: The documentation as recorded by the dhaval, Korin Guzmán accurately reflects the service I personally performed and the decisions made by Imer burroughs DO Status of Scralbert Document: Viewed
[2019-12-15 00:33] LABS: Hematocrit 34 % (42-52); Hemoglobin 11.6 g/dL (14.0-18.0); Mean Corpuscular HGB Conc 35 g/dL (31-36); Mean Corpuscular Hemoglobin 31 pg (27-31); Mean Corpuscular Volume 88 fL (80-94); Mean Platelet Volume 6.3 fL (7.4-10.4); Platelet Count 99 10^3/uL (150-450); Red Cell Distribution Width 15 % (10-15); White Blood Count 3.7 10^3/uL (3.5-10.8)
[2019-12-15] MEDS ORDERED: LORazepam INJ* 2 MG/ML 1 ML VIAL IV PUSH ONE (00:34)
[2019-12-15] MEDS ORDERED: Lorazepam PYXIS KEY PRN (00:34)
[2019-12-15 00:46] LABS: Albumin 3.2 g/dL (3.2-5.2); Albumin/Globulin Ratio 1.4 (1-3); BUN/Creatinine Ratio 2.7 (8-20); Calcium 8.3 mg/dL (8.6-10.3); EGFR Non-African American 106.6 (>60); Globulin 2.3 g/dL (2-4); Potassium 3.1 mmol/L (3.5-5.0); Total Bilirubin 0.6 mg/dL (0.2-1.0); Total Protein 5.5 g/dL (6.4-8.9)
[2019-12-15 00:55] LABS: ABS Lymphocytes 0.2 10^3/ul (1.0-4.8); ABS Monocytes 0.5 10^3/ul (0-0.8); Eosinophil % 0.9 %; Lymphocyte % 5.2 %; Nucleated Red Blood Cells % 0.2
[2019-12-15] MEDS ORDERED: Lorazepam PYXIS KEY ONE (01:12)
[2019-12-15] MEDS ORDERED: Potassium Chlor TAB* 20 MEQ TAB.ER PO ONE ×2 (01:24→16:15)
[2019-12-15] MEDS ORDERED: Ondansetron INJ* 2 MG/ML VIAL IV ONE (01:25)
[2019-12-15] MEDS ORDERED: Morphine 4 MG/ML VIAL (1 ml) 4 MG/ML VIAL IV ONE (01:25)
[2019-12-15 01:44] LABS: Magnesium 1.6 mg/dL (1.9-2.7)
--- OUTSIDE RECORDS SUMMARY | 2019-12-15 01:56 | XMS REPORT | Continuity of Care Document ---
:1960 External Reference #:[id number] Author Name Cruz Wilson MD (transmitted by agent of provider Jeanie Mancilla) Address [address] [place] [id number] Care Team Providers Name Role Phone Dianne Day MD - Internal Care Team Information Assistant Professor Of Geography Medicine Nova Blair MD - Hematology & Care Team Information Assistant Professor Of Geography [phone] Oncology Problems Description No Information Available Social History Type Date Description Comments Sex Unknown ETOH Use Denies alcohol use Tobacco Use Start: Unknown End: Patient is a former smoker quit 1996 Unknown Smoking Status Reviewed: 11/21/19 Patient is a former smoker quit 1996 Exercise Type/Frequency Does not exercise Allergies, Adverse Reactions, Alerts Description No Known Drug Allergies Medications Active Medications SIG Qnty Indications Ordering Provider Date Zytiga 2 tabs daily Unknown 500mg Tablets Prednisone 1 by mouth twice Unknown 5mg Tablets a day Vitamin D Unknown (Cholecalciferol) 50mcg (1999 Ut) Capsules Loratadine 1 by mouth every Unknown 10mg Tablets day for cough/congestion Multivitamin Adult 1 by mouth every Unknown Tablets day Omeprazole 1 by mouth every Unknown 20mg Capsules DR day Immunizations Description No Information Available Vital Signs Date Vital Result Comment 11/21/2019 2:52pm Height 75 inches 6'3" Weight 230.00 lb Heart Rate 76 /min BP Systolic Sitting 132 mmHg BP Diastolic Sitting 84 mmHg Respiratory Rate 16 /min Body Temperature 97.8 F BMI (Body Mass Index) 28.7 kg/m2 01/24/2019 10:49am Height 75 inches 6'3" Weight 228.38 lb Heart Rate 60 /min BP Systolic Sitting 110 mmHg BP Diastolic Sitting 72 mmHg Respiratory Rate 14 /min Body Temperature 97.9 F BMI (Body Mass Index) 28.5 kg/m2 Results Test Acquired Date Facility Test Result H/L Range Note Leukemia/Lym 11/14/2019 [facility] Path Interpretation (SEE NOTE ) 1 ph[address] 2-8 [place] [address] [phone] Path Interpret 9-15 Marker TNP Path Interpret > 16 Marker TNP T-Cell Lymphoma 11/14/2019 [facility] T-Cell Specimen Bone Marrow Fish [address] [place] [address] [phone] T-Cell Source Left PIC T-Cell Reason for Referral See Comment 2 T-Cell Method See Comment 3 Result See Comment 4 T-Cell Interpretation See Comment 5 T-Cell Released By See Comment 6 Result Summary Normal Result Table See Comment 7 Disclaimer See Comment 8 CBC Auto 11/14/2019 [facility] White Blood 12.7 10^3/uL High 3.5-10.[address] [place] [address] [phone] Red Blood Count 4.44 10^6/uL Normal 4.18-5.48 Hemoglobin 13.3 g/dL Low 14.0-18.0 Hematocrit 40 % Low 42-52 Mean Corpuscular Volume 89 fL Normal 80-94 Mean Corpuscular Hemoglobin 30 pg Normal 27-31 Mean Corpuscular HGB Conc 34 g/dL Normal 31-36 Red Cell Distribution Width 16 % High 10-15 Platelet Count 356 10^3/uL Normal 150-450 Mean Platelet Volume 5.8 fL Low 7.4-10.4 Abs Neutrophils 10.9 10^3/uL High 1.5-7.7 Abs Lymphocytes 0.6 10^3/uL Low 1.0-4.8 Abs Monocytes 1.1 10^3/uL High 0-0.8 Abs Eosinophils 0.1 10^3/uL Normal 0-0.6 Abs Basophils 0.1 10^3/uL Normal 0-0.2 Abs Nucleated RBC 0.0 10^3/uL Granulocyte % 85.6 % Lymphocyte % 5.1 % Monocyte % 8.3 % Eosinophil % 0.4 % Basophil % 0.6 % Nucleated Red Blood Cells % 0.1 Manual 11/14/2019 [facility] Immature 8.0 % Normal 0-[address] [place] [address] [phone] Neutrophil % 79.0 % Band % 1.0 % Normal 0-8 Lymphocytes % 3.0 % Monocytes % 7.0 % Eosinophils % 1.0 % Basophil % 2.0 % Metamyelocytes % 1.0 % Normal 0-2 Myelocytes % 6.0 % High 0-1 RBC Morphology Normal Normal Laboratory test 11/11/2019 [facility] Point of 85 mg/dL Normal 70-100 [address] [place] [address] [phone] Comp Metabolic 11/04/2019 [facility] Sodium 139 mmol/L Normal 135-[address] [place] [address] [phone] Potassium 3.7 mmol/L Normal 3.5-5.0 Chloride 100 mmol/L Low 101-111 Co2 Carbon Dioxide 32 mmol/L Normal 22-32 Anion Gap 7 mmol/L Normal 2-11 Glucose 100 mg/dL Normal 70-100 Blood Urea Nitrogen 16 mg/dL Normal 6-24 Creatinine 0.98 mg/dL Normal 0.67-1.17 BUN/Creatinine Ratio 16.3 Normal 8-20 Calcium 9.7 mg/dL Normal 8.6-10.3 Total Protein 7.2 g/dL Normal 6.4-8.9 Albumin 4.4 g/dL Normal 3.2-5.2 Globulin 2.8 g/dL Normal 2-4 Albumin/Globulin Ratio 1.6 Normal 1-3 Total Bilirubin 0.90 mg/dL Normal 0.2-1.0 Alkaline Phosphatase 76 U/L Normal 34-104 Alt 18 U/L Normal 7-52 Ast 15 U/L Normal 13-39 Egfr Non- 78.3 >60 Egfr 94.7 >60 10 Laboratory test 11/04/2019 [facility] PSA Screening < 0.008 Normal 0-4.000 [address] ng/[place] [address] [phone] CBC Auto Diff 11/04/2019 [facility] White Blood 10.3 Normal 3.5-10.[address] Count 10^3/[place] [address] [phone] Red Blood Count 4.49 10^6/uL Normal 4.18-5.48 Hemoglobin 13.7 g/dL Low 14.0-18.0 Hematocrit 40 % Low 42-52 Mean Corpuscular Volume 90 fL Normal 80-94 Mean Corpuscular Hemoglobin 31 pg Normal 27-31 Mean Corpuscular HGB Conc 34 g/dL Normal 31-36 Red Cell Distribution Width 16 % High 10-15 Platelet Count 257 10^3/uL Normal 150-450 Mean Platelet Volume 6.6 fL Low 7.4-10.4 Abs Neutrophils 8.7 10^3/uL High 1.5-7.7 Abs Lymphocytes 0.5 10^3/uL Low 1.0-4.8 Abs Monocytes 1.1 10^3/uL High 0-0.8 Abs Eosinophils 0.1 10^3/uL Normal 0-0.6 Abs Basophils 0.1 10^3/uL Normal 0-0.2 Abs Nucleated RBC 0.0 10^3/uL Granulocyte % 83.6 % Lymphocyte % 4.4 % Monocyte % 10.6 % Eosinophil % 0.8 % Basophil % 0.6 % Nucleated Red Blood Cells % 0.1 Surgical 11/01/2019 [facility] Surgical SEE RESULT [address] [place] [place] [address] [phone] PDFReport SEE IMAGE Laboratory test 07/16/2019 [facility] PSA Diagnostic < 0.008 Normal 0-4.000 [address] ng/[place] [address] [phone] Comp Metabolic 07/16/2019 [facility] Sodium 139 Normal 135- [address] mmol/[place] [address] [phone] Potassium 3.6 mmol/L Normal 3.5-5.0 Chloride 103 mmol/L Normal 101-111 Co2 Carbon Dioxide 26 mmol/L Normal 22-32 Anion Gap 10 mmol/L Normal 2-11 Glucose 132 mg/dL High 70-100 Blood Urea Nitrogen 23 mg/dL Normal 6-24 Creatinine 1.03 mg/dL Normal 0.67-1.17 BUN/Creatinine Ratio 22.3 High 8-20 Calcium 9.8 mg/dL Normal 8.6-10.3 Total Protein 7.5 g/dL Normal 6.4-8.9 Albumin 4.2 g/dL Normal 3.2-5.2 Globulin 3.3 g/dL Normal 2-4 Albumin/Globulin Ratio 1.3 Normal 1-3 Total Bilirubin 0.60 mg/dL Normal 0.2-1.0 Alkaline Phosphatase 71 U/L Normal 34-104 Alt 18 U/L Normal 7-52 Ast 14 U/L Normal 13-39 Egfr Non- 73.9 >60 Egfr 89.4 >60 14 CBC Auto 07/16/2019 [facility] White Blood 7.6 10^3/uL Normal 3.5-10.[address] [place] [address] [phone] Red Blood Count 4.62 10^6/uL Normal 4.18-5.48 Hemoglobin 14.2 g/dL Normal 14.0-18.0 Hematocrit 42 % Normal 42-52 Mean Corpuscular Volume 91 fL Normal 80-94 Mean Corpuscular Hemoglobin 31 pg Normal 27-31 Mean Corpuscular HGB Conc 34 g/dL Normal 31-36 Red Cell Distribution Width 15 % Normal 10-15 Platelet Count 265 10^3/uL Normal 150-450 Mean Platelet Volume 6.0 fL Low 7.4-10.4 Abs Neutrophils 6.4 10^3/uL Normal 1.5-7.7 Abs Lymphocytes 0.5 10^3/uL Low 1.0-4.8 Abs Monocytes 0.6 10^3/uL Normal 0-0.8 Abs Eosinophils 0.1 10^3/uL Normal 0-0.6 Abs Basophils 0.1 10^3/uL Normal 0-0.2 Abs Nucleated RBC 0.0 10^3/uL Granulocyte % 83.9 % Lymphocyte % 6.9 % Monocyte % 7.5 % Eosinophil % 1.0 % Basophil % 0.7 % Nucleated Red Blood Cells % 0.2 Basic Metabolic 06/27/2019 [facility] Sodium 137 mmol/L Normal 135-[address] [place] [address] [phone] Potassium 3.7 mmol/L Normal 3.5-5.0 Chloride 103 mmol/L Normal 101-111 Co2 Carbon Dioxide 25 mmol/L Normal 22-32 Anion Gap 9 mmol/L Normal 2-11 Glucose 159 mg/dL High 70-100 Blood Urea Nitrogen 19 mg/dL Normal 6-24 Creatinine 0.99 mg/dL Normal 0.67-1.17 BUN/Creatinine Ratio 19.2 Normal 8-20 Calcium 9.2 mg/dL Normal 8.6-10.3 Egfr Non- 77.4 >60 Egfr 93.6 >60 15 Laboratory test 06/27/2019 [facility] Magnesium 2.1 mg/dL Normal 1.9-2.[address] [place] [address] [phone] CBC Auto Diff 06/24/2019 [facility] White Blood 7.3 Normal 3.5 -10.[address] Count 10^3/[place] [address] [phone] Red Blood Count 4.21 10^6/uL Normal 4.18-5.48 Hemoglobin 13.4 g/dL Low 14.0-18.0 Hematocrit 38 % Low 42-52 Mean Corpuscular Volume 90 fL Normal 80-94 Mean Corpuscular Hemoglobin 32 pg High 27-31 Mean Corpuscular HGB Conc 35 g/dL Normal 31-36 Red Cell Distribution Width 16 % High 10-15 Platelet Count 175 10^3/uL Normal 150-450 Mean Platelet Volume 5.6 fL Low 7.4-10.4 Abs Neutrophils 6.0 10^3/uL Normal 1.5-7.7 Abs Lymphocytes 0.4 10^3/uL Low 1.0-4.8 Abs Monocytes 0.9 10^3/uL High 0-0.8 Abs Eosinophils 0.1 10^3/uL Normal 0-0.6 Abs Basophils 0.1 10^3/uL Normal 0-0.2 Abs Nucleated RBC 0.0 10^3/uL Granulocyte % 81.3 % Lymphocyte % 5.0 % Monocyte % 11.8 % Eosinophil % 1.2 % Basophil % 0.7 % Nucleated Red Blood Cells % 0.1 Comp Metabolic 06/24/2019 [facility] Sodium 137 mmol/L Normal 135-[address] [place] [address] [phone] Potassium 3.3 mmol/L Low 3.5-5.0 Chloride 102 mmol/L Normal 101-111 Co2 Carbon Dioxide 29 mmol/L Normal 22-32 Anion Gap 6 mmol/L Normal 2-11 Glucose 120 mg/dL High 70-100 Blood Urea Nitrogen 19 mg/dL Normal 6-24 Creatinine 0.97 mg/dL Normal 0.67-1.17 BUN/Creatinine Ratio 19.6 Normal 8-20 Calcium 9.2 mg/dL Normal 8.6-10.3 Total Protein 6.4 g/dL Normal 6.4-8.9 Albumin 4.0 g/dL Normal 3.2-5.2 Globulin 2.4 g/dL Normal 2-4 Albumin/Globulin Ratio 1.7 Normal 1-3 Total Bilirubin 0.70 mg/dL Normal 0.2-1.0 Alkaline Phosphatase 66 U/L Normal 34-104 Alt 19 U/L Normal 7-52 Ast 15 U/L Normal 13-39 Egfr Non- 79.2 >60 Egfr 95.9 >60 16 Laboratory test 06/24/2019 [facility] PSA Diagnostic < 0.008 Normal 0-4.[address] ng/[place] [address] [phone] Magnesium 1.8 mg/dL Low 1.9-2.7 Basic Metabolic 06/10/2019 [facility] Sodium 139 mmol/L Normal 135-145 Panel [address] [place] [address] [phone] Potassium 4.0 mmol/L Normal 3.5-5.0 Chloride 104 mmol/L Normal 101-111 Co2 Carbon Dioxide 29 mmol/L Normal 22-32 Anion Gap 6 mmol/L Normal 2-11 Glucose 133 mg/dL High 70-100 Blood Urea Nitrogen 18 mg/dL Normal 6-24 Creatinine 0.94 mg/dL Normal 0.67-1.17 BUN/Creatinine Ratio 19.1 Normal 8-20 Calcium 9.0 mg/dL Normal 8.6-10.3 Egfr Non- 82.1 >60 Egfr 99.4 >60 18 Laboratory test 06/10/2019 [facility] Magnesium 2.0 mg/dL Normal 1.9-2.[address] [place] [address] [phone] Comp Metabolic 06/07/2019 [facility] Sodium 139 mmol/L Normal 135-[address] [place] [address] [phone] Potassium 3.6 mmol/L Normal 3.5-5.0 Chloride 104 mmol/L Normal 101-111 Co2 Carbon Dioxide 30 mmol/L Normal 22-32 Anion Gap 5 mmol/L Normal 2-11 Glucose 136 mg/dL High 70-100 Blood Urea Nitrogen 23 mg/dL Normal 6-24 Creatinine 0.92 mg/dL Normal 0.67-1.17 BUN/Creatinine Ratio 25.0 High 8-20 Calcium 9.2 mg/dL Normal 8.6-10.3 Total Protein 6.6 g/dL Normal 6.4-8.9 Albumin 4.2 g/dL Normal 3.2-5.2 Globulin 2.4 g/dL Normal 2-4 Albumin/Globulin Ratio 1.8 Normal 1-3 Total Bilirubin 0.40 mg/dL Normal 0.2-1.0 Alkaline Phosphatase 71 U/L Normal 34-104 Alt 17 U/L Normal 7-52 Ast 15 U/L Normal 13-39 Egfr Non- 84.2 >60 Egfr 101.9 >60 19 CBC Auto 06/07/2019 [facility] White Blood 9.1 10^3/uL Normal 3.5-10.[address] Count [place], [place] [id number] [phone] Red Blood Count 4.38 10^6/uL Normal 4.18-5.48 Hemoglobin 13.8 g/dL Low 14.0-18.0 Hematocrit 40 % Low 42-52 Mean Corpuscular Volume 91 fL Normal 80-94 Mean Corpuscular Hemoglobin 31 pg Normal 27-31 Mean Corpuscular HGB Conc 34 g/dL Normal 31-36 Red Cell Distribution Width 16 % High 10-15 Platelet Count 185 10^3/uL Normal 150-450 Mean Platelet Volume 6.1 fL Low 7.4-10.4 Abs Neutrophils 7.7 10^3/uL Normal 1.5-7.7 Abs Lymphocytes 0.5 10^3/uL Low 1.0-4.8 Abs Monocytes 0.8 10^3/uL Normal 0-0.8 Abs Eosinophils 0.1 10^3/uL Normal 0-0.6 Abs Basophils 0.1 10^3/uL Normal 0-0.2 Abs Nucleated RBC 0.0 10^3/uL Granulocyte % 84.7 % Lymphocyte % 5.1 % Monocyte % 8.9 % Eosinophil % 0.6 % Basophil % 0.7 % Nucleated Red Blood Cells % 0.0 1 FINAL DIAGNOSIS: Specimen Source: Bone marrow Flow cytometry immunophenotypic analysis: No evidence of an immunophenotypically abnormal cell population. Interpretative data: Blasts: 1% of gated events Lymphocytes: 4% of gated events B-cells: 3% of lymphs; kappa:lambda within normal limits T-cells/NK cells: No aberrant population detected. Markers tested: CD3, CD10, CD16, CD19, CD34, CD45, kappa surface light chains, lambda surface light chains, 7-AAD. Quality Assessment: Acceptable Viability: Acceptable Viable lymphocytes (7-AAD): 60% Specimen received within validated guidelines. A Orourke-Giemsa stained slide prepared from the flow cytometry specimen was examined for quality purposes. Electronically signed by: Geneva Nicholson MD 11/15/19 5655 Technical component performed by: [place] [address] Chicken And Fish Cleaner: Zaire Duran II, MD, PhD. 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 Scoring Method: Manual 4 RESULT: Interphase FISH is normal for all loci studied. 5 The result is within normal limits. We saw no abnormalities for the TCL1A gene region, chromosome 7 and chromosome 8. A normal FISH result does not exclude the presence of lymphoma in the bone marrow. Clinical and pathologic correlation is recommended. 6 Released By: Lonnie Ronquillo, Ph.D. 7 Abnormality Name Result Abn% Cutoff% NTE L +7q31(D7Z1x2,P0P046k2) Normal <1.5 NTE L +8(D8Z2,MYC)x3 Normal <2.5 NTE L 14q32(TCL1A sep) Normal <6.5 8 Applicable to Analyte Specific Reagent (ASR) and Laboratory Developed Tests (LDT). This test was developed and its performance characteristics determined by [facility] in a manner consistent with CLIA requirements. It has not been cleared or approved by the U.S. Food and Drug Administration. This FISH test does not rule out other chromosome abnormalities. Test Performed by: [place] [address] Rock Drill Operator: Zaire Duran M.D. Ph.D.; CLIA# [id number] 9 Special Education Coordinator: [id number] 10 Because ethnic data is not always readily available, this report includes an eGFR for both -Americans and non- Americans. The National Kidney Disease Education Program (NKDEP) does not endorse the use of the MDRD equation for patients that are not between the ages of 18 and 70, are , have extremes of body size, muscle mass, or nutritional status, or are non- or non-. According to the National Kidney Foundation, irrespective of diagnosis, the stage of the disease is based on the level of kidney function: Stage Description GFR(mL/min/1.73 m(2)) 1 Kidney damage with normal or decreased GFR 90 2 Kidney damage with mild decrease in GFR 60-89 3 Moderate decrease in GFR 30-59 4 Severe decrease in GFR 15-29 5 Kidney failure <15 (or dialysis) 11 Serum levels of PSA measured using the [employer] DXI Hybritech immunoassay should not be interpreted as absolute evidence of the presence or absence of disease. The PSA value should be used in conjunction with other pertinent clinical diagnostic procedures. A PSA value in the range of 0.1 to 0.6 ng/ml is indeterminate if being used as an indicator of recurrent or residual disease. The values obtained with different assay methods or kits cannot be used interchangeably. 12 SEE RESULT BELOW Name: RALPH MARKS : [address]: Cuba Rivas MD Acct: [id number] Unit: [id number] AGE: 59 Location: OR Re11/01/19 SEX: M Status: REG SDC SPEC: [id number] DINA: 11/01/19- [facility] DR: Cuba Rivas MD REQ: [id number] RECD: 11/01/19 STATUS: SOUT _ ORDERED: Decal, LEVEL 4, IMMUNO-FIRST, IMMUNO-ADDL/2, SPEC STAIN ORG/2 THIS IS A CORRECTED REPORT 11/06/19 Corrected Report ADDENDUM A CD30 immunohistochemical stain, with appropriately reacting controls, was performed on sections cut from block B and is negative, supporting the previously rendered diagnosis. Addendum Signed (signature on file) Geneva Nicholson MD 0831 FINAL DIAGNOSIS Soft tissue right middle turbinate, debridement: -- Recurrent extranodal T/NK cell lymphoma. See comment. Comment: The tissue sections demonstrate variable mixed inflammatory elements in the more superficial aspects of the tissue, however distributed through this inflammatory elements as well as in deeper sections is a population of intermediate to large cytologically malignant lymphocytes demonstrating identical morphology to the patient's original T/NK lymphoma ([id number]). This population demonstrates areas of focal necrosis and high mitotic activity. Immunohistochemical stains performed on blocks B and C with appropriate controls demonstrate strong and diffuse staining in these areas for CD56 and CD3 and support the diagnosis of recurrent malignancy. CONTINUED ON NEXT PAGE DEPARTMENT OF PATHOLOGY, [address] [place] [address] Lonnie Garcia M.D. Director [facility] # [id number] Histochemical stains for fungal organisms (PAS and GMS) on blocks A and B are negative. Dr. Nicholson has reviewed this case and concurs. Dr. Rivas notified of these results on 11/07/19 approximately 11:45 AM PRE-OPERATIVE DIAGNOSIS Malignant neoplasm of nasal cavity, chronic sinusitis GROSS DESCRIPTION The specimen is received in formalin labeled, Fragments of Right Middle Turbinate, and consists of a 3.5 x 2.9 x 0.6 cm aggregate of hurtado-white irregular soft tissue fragments admixed with scant sal[place]-white bone fragments. The specimen is submitted entirely in cassettes A through C, to include bone in cassette C following decalcification. Signed by and Reported on: Lonnie Garcia MD 1145 END OF REPORT DEPARTMENT OF PATHOLOGY, [address] [place] [id number] Lonnie Garcia M.D. Director [facility] # [id number] 13 Serum levels of PSA measured using the D[employer] [place] DXI Hybritech immunoassay should not be interpreted as absolute evidence of the presence or absence of disease. The PSA value should be used in conjunction with other pertinent clinical diagnostic procedures. A PSA value in the range of 0.1 to 0.6 ng/ml is indeterminate if being used as an indicator of recurrent or residual disease. The values obtained with different assay methods or kits cannot be used interchangeably. 14 Because ethnic data is not always readily available, this report includes an eGFR for both -Americans and non- Americans. The National Kidney Disease Education Program (NKDEP) does not endorse the use of the MDRD equation for patients that are not between the ages of 18 and 70, are , have extremes of body size, muscle mass, or nutritional status, or are non- or non-. According to the National Kidney Foundation, irrespective of diagnosis, the stage of the disease is based on the level of kidney function: Stage Description GFR(mL/min/1.73 m(2)) 1 Kidney damage with normal or decreased GFR 90 2 Kidney damage with mild decrease in GFR 60-89 3 Moderate decrease in GFR 30-59 4 Severe decrease in GFR 15-29 5 Kidney failure <15 (or dialysis) 15 Because ethnic data is not always readily available, this report includes an eGFR for both -Americans and non- Americans. The National Kidney Disease Education Program (NKDEP) does not endorse the use of the MDRD equation for patients that are not between the ages of 18 and 70, are , have extremes of body size, muscle mass, or nutritional status, or are non- or non-. According to the National Kidney Foundation, irrespective of diagnosis, the stage of the disease is based on the level of kidney function: Stage Description GFR(mL/min/1.73 m(2)) 1 Kidney damage with normal or decreased GFR 90 2 Kidney damage with mild decrease in GFR 60-89 3 Moderate decrease in GFR 30-59 4 Severe decrease in GFR 15-29 5 Kidney failure <15 (or dialysis) 16 Because ethnic data is not always readily available, this report includes an eGFR for both -Americans and non- Americans. The National Kidney Disease Education Program (NKDEP) does not endorse the use of the MDRD equation for patients that are not between the ages of 18 and 70, are , have extremes of body size, muscle mass, or nutritional status, or are non- or non-. According to the National Kidney Foundation, irrespective of diagnosis, the stage of the disease is based on the level of kidney function: Stage Description GFR(mL/min/1.73 m(2)) 1 Kidney damage with normal or decreased GFR 90 2 Kidney damage with mild decrease in GFR 60-89 3 Moderate decrease in GFR 30-59 4 Severe decrease in GFR 15-29 5 Kidney failure <15 (or dialysis) 17 Serum levels of PSA measured using the [employer] DXI Hybritech immunoassay should not be interpreted as absolute evidence of the presence or absence of disease. The PSA value should be used in conjunction with other pertinent clinical diagnostic procedures. A PSA value in the range of 0.1 to 0.6 ng/ml is indeterminate if being used as an indicator of recurrent or residual disease. The values obtained with different assay methods or kits cannot be used interchangeably. 18 Because ethnic data is not always readily available, this report includes an eGFR for both -Americans and non- Americans. The National Kidney Disease Education Program (NKDEP) does not endorse the use of the MDRD equation for patients that are not between the ages of 18 and 70, are , have extremes of body size, muscle mass, or nutritional status, or are non- or non-. According to the National Kidney Foundation, irrespective of diagnosis, the stage of the disease is based on the level of kidney function: Stage Description GFR(mL/min/1.73 m(2)) 1 Kidney damage with normal or decreased GFR 90 2 Kidney damage with mild decrease in GFR 60-89 3 Moderate decrease in GFR 30-59 4 Severe decrease in GFR 15-29 5 Kidney failure <15 (or dialysis) 19 Because ethnic data is not always readily available, this report includes an eGFR for both -Americans and non- Americans. The National Kidney Disease Education Program (NKDEP) does not endorse the use of the MDRD equation for patients that are not between the ages of 18 and 70, are , have extremes of body size, muscle mass, or nutritional status, or are non- or non-. According to the National Kidney Foundation, irrespective of diagnosis, the stage of the disease is based on the level of kidney function: Stage Description GFR(mL/min/1.73 m(2)) 1 Kidney damage with normal or decreased GFR 90 2 Kidney damage with mild decrease in GFR 60-89 3 Moderate decrease in GFR 30-59 4 Severe decrease in GFR 15-29 5 Kidney failure <15 (or dialysis) Procedures Date Code Description Status 11/25/2019 63993 Fluoroscopic Guidance For Cent Completed 11/25/2019 90955 Insertion Tunneled Cent Venous Cathr W Subcut Port 5 Yrs Completed Or Oldr Medical Devices Description No Information Available Encounters Type Date Location Provider Dx Diagnosis Office Visit 11/21/2019 [facility]uit[facility] C86.0 Extranodal 2:45p Of Jocelyne Wilson MD NK/T-cell lymphoma, nasal type 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 He wishes to proceed and all questions were [id number] Extranodal NK/T-cell lymphoma, nasal typeComments:Plan for port placement, risks including but not limited to bleeding, infection, pneumothorax, injury to heart explained. He wishes to proceed and all questions were answered Functional Status Description No Information Available Mental Status Description No Information Available Referrals Description No Information Available
--- OUTSIDE RECORDS SUMMARY | 2019-12-15 01:56 | XMS REPORT | Continuity of Care Document ---
:1960 External Reference #:[id number] Author Name Cuba Rivas MD (transmitted by agent of provider Radha Sterling) Address [address] [place] [address] Care Team Providers Name Role Phone Jimmy South M.D. - Family Care Team Information Licensed Clinical Psychologist Medicine Dante Gonzalez M.D. Care Team Information Licensed Clinical Psychologist [phone] Nova Blair M.D. 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/09/2018 Acute sinusitis Marimar Hardy PA-C Onset: 07/09/2018 Social History Type Date Description Comments Sex Unknown Tobacco Use Start: Unknown End: Unknown Former Cigarette Smoker 3 Packs Daily Cigarette Use for 20 years, quit at age 36 Tobacco Use Start: Unknown Never Smoked Cigars Tobacco Use Start: Unknown Never Smoked A Pipe Smokeless Tobacco Never Used Smokeless Tobacco ETOH Use Denies alcohol use Tobacco Use Start: Unknown End: Unknown Patient is a former smoker Smoking Status Reviewed: 11/07/19 Patient is a former smoker Allergies, Adverse Reactions, Alerts Description No Known Drug Allergies Medications Active Medications SIG Qnty Indications Ordering Date Provider Acetaminophen 20 ml by mouth 1015ml Cuba Santos 09/20/2018 160mg/5ML every 6 hours as MD Evelyn Solution needed for pain Omeprazole 1 tab by mouth 30 60caps Cuba Santos 07/13/2018 20mg Capsules min before MD Evelyn DR breakfast and dinner Nystatin Unknown 284535Ivef/GM Cream Neupogen Unknown 480mcg/0.8ML Soln Prefill Syringe Prednisone Nova Blair 5mg Tablets M.D. Lupron Shots as directed Unknown Voriconazole Dante Gonzalez 200mg M.D. Tablets Zytiga Mono Blair 500mg Tablets M.D. Esomeprazole Magnesium Take One Capsule Unknown By Mouth Every 40mg Capsules DR 30 Minutes Before Dinner History Medications Amoxicillin/Clavulanate 1 by mouth 42tapercy Santos 09/12/2019 - Potassium twice a day MD Evelyn 09/30/2019 875-125mg Tablets for 21 days Amoxicillin/Clavulanate 1 by mouth 20caron Santos 07/11/2019 - Potassium twice a day MD Evelyn 09/11/2019 875-125mg Tablets for 10 days Immunizations Description No Information Available Vital Signs Date Vital Result Comment 11/07/2019 2:43pm Weight 238.00 lb Weight 107.957 kg Height 75 inches 6'3" Height in cm's 190.5 cm BMI (Body Mass Index) 29.7 kg/m2 10/10/2019 4:00pm Weight 240.00 lb Weight 108.864 kg Height 75 inches 6'3" Height in cm's 190.5 cm BMI (Body Mass Index) 30.0 kg/m2 Results Test Acquired Date Facility Test Result H/L Range Note Surgical 11/01/2019 [facility] Surgical SEE RESULT 1 Pathology c/o Department of Laboratories [place]ology [place], [place] [id number] [phone] PDFReport SEE IMAGE Laboratory test 10/10/2019 [facility] Fungus Smear SEE RESULT 2 finding c/o [facility] [place] [address] [phone] Surgical Pathology SEE RESULT BELOW 3 Laboratory test 10/10/2019 [facility] Fungus Smear SEE RESULT 4 finding c/o [facility] [place] [address] [phone] Laboratory test 10/10/2019 [facility] Fungus Smear SEE RESULT 5 finding c/o [place] [address] [phone] Laboratory test 10/10/2019 [facility] Fungus Smear SEE RESULT 6 finding c/o [facility] of [facility] [place], [place] [address] [phone] Wound 10/01/2019 [facility] Wound/Misc SEE RESULT 7 Culture/Sensi c/o Department of Laboratories [place] [address] Stain [phone] Wound 08/13/2019 [facility] Wound/Misc SEE RESULT 8 Culture/Sensi c/o Department of [place] [address] Stain [phone] 1 SEE RESULT BELOW Name: RALPH MARKS : [address]: Cuba Rivas MD Acct: [id number] Unit: [id number] AGE: 59 Location: OR Re11/01/19 SEX: M Status: REG [facility] – [place] SPEC: [id number] DINA: 11/01/19- [facility] DR: Cuba Rivas MD REQ: [id number] RECD: 11/01/195405 STATUS: SOUT _ ORDERED: Decal, LEVEL 4, [...] 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 This population demonstrates areas of focal necrosis and high mitotic activity. Immunohistochemical stains performed on blocks B and C with appropriate controls demonstrate strong and diffuse staining in these areas for CD56 and CD3 and support the diagnosis of recurrent malignancy. CONTINUED ON NEXT PAGE DEPARTMENT OF PATHOLOGY, [address] [place] [address] Lonnie Garcia M.D. Director [facility] # [id number] Histochemical stains for fungal organisms (PAS and [...] 1145 END OF REPORT DEPARTMENT OF PATHOLOGY, [address] [place] [address] Lonnie Garcia M.D. Director [facility] # [id number] 2 SEE RESULT BELOW Name: RALPH MARKS : [address]: Cuba Rivas MD Acct: [id number] Unit: [id number] AGE: 59 Location: [facility] Re10/10/19 SEX: M Status: REG REF SPEC: [id number] DINA: 10/10/19-[address]: Cuba Rivas MD REQ: [id number] RECD: 10/11/19-1254 STATUS: [facility] _ [facility]: Fungal Smear, Fungal - Other COMMENTS: [id number] Procedure Result Reported Site Fungal Smear Final 10/14/19- 1716 ML Fungal Findings Negative Preparation By Direct Smear Fungal Cult - Other Sources Preliminary 10/21/19- 1333 ML No Growth Week 1 * ML - Main Lab . END OF REPORT DEPARTMENT OF PATHOLOGY, [address] [place] [address] Lonnie Garcia M.D. Director [facility] # [id number] 3 SEE RESULT BELOW Name: RALPH MARKS : [address]: Cuba Rivas MD Acct: [id number] Unit: [id number] AGE: 59 Location: [facility] Re10/10/19 SEX: M Status: REG REF SPEC: [id number] DINA: 10/10/19-[address] [facility] [address]: Cuba Rivas MD REQ: [id number] RECD: 10/11/19-1254 STATUS: SOUT _ ORDERED: LEVEL 4, SPEC STAIN ORG/2 COMMENTS: [id number] FINAL DIAGNOSIS Right middle turbinate biopsy: -- Acute and chronically inflamed granulation tissue with ulceration. See comment. -- No evidence of neoplasia identified. -- No fungal organisms identified on fungal stains with appropriate controls. Comment: Histochemical stains for fungal organisms (GMS and PAS) with appropriate controls are negative for fungal organisms. CLINICAL HISTORY No history given GROSS DESCRIPTION The specimen is received in formalin labeled, Right Middle Turbinate, and consists of a 1.0 a 0.7 by up to 0.3 cm aggregate of hurtado-pink irregular soft tissue fragments admixed with red-brown blood clot. Entirely submitted, one cassette. Signed by and Reported on: Lonnie Garcia MD 1619 END OF REPORT DEPARTMENT OF PATHOLOGY, [address] [place] [address] Lonnie Garcia M.D. Director [facility] # [id number] 4 SEE RESULT BELOW Name: RALPH MARKS : [address]: Cuba Rivas MD Acct: [id number] Unit: [id number] AGE: 59 Location: [facility] Re10/10/19 SEX: M Status: REG REF SPEC: [id number] DINA: 10/10/19-[address] [facility] [address]: Cuba Rivas MD REQ: [id number] RECD: 10/11/19-1254 STATUS: RES _ [place] [facility] [place]: ORDERED: Fungal Smear, Fungal - Other COMMENTS: [id number] Procedure Result Reported Site Fungal Smear Final 10/14/19- 1716 ML Fungal Findings Negative Preparation By Direct Smear Fungal Cult - Other Sources Preliminary 10/28/19- 1105 ML No Growth Week 2 * ML - Main Lab . END OF REPORT DEPARTMENT OF PATHOLOGY, [address] [place] [address] Lonnie Garcia M.D. Director [facility] # [id number] 5 SEE RESULT BELOW Name: RALPH MARKS : [address]: Cuba Rivas MD Acct: [id number] Unit: [id number] AGE: 59 Location: [facility] Re10/10/19 SEX: M Status: REG REF SPEC: [id number] DINA: 10/10/19-[address] [facility] [address]: Cuba Rivas MD REQ: [id number] RECD: 10/11/19-1254 STATUS: RES _ SOURCE: [facility]: ORDERED: Fungal Smear, Fungal - Other COMMENTS: [id number] Procedure Result Reported Site Fungal Smear Final 10/14/19- 1716 ML Fungal Findings Negative Preparation By Direct Smear Fungal Cult - Other Sources Preliminary 11/04/19- 1014 ML No Growth Week 3 * ML - Main Lab . END OF REPORT DEPARTMENT OF PATHOLOGY, [address] [place] [address] Lonnie Garcia M.D. Director [facility] # [id number] 6 SEE RESULT BELOW Name: RALPH MARKS : [address]: Cuba Rivas MD Acct: [id number] Unit: [id number] AGE: 59 Location: [facility] Re10/10/19 SEX: M Status: REG REF SPEC: [id number] DINA: 10/10/19-[address]: Cuba Rivas MD REQ: [id number] RECD: 10/11/19-1254 STATUS: COMP _ SOURCE: [facility] SPDESC: ORDERED: Fungal Smear, Fungal - Other COMMENTS: [id number] Procedure Result Reported Site Fungal Smear Final 10/14/19- 1716 ML Fungal Findings Negative Preparation By Direct Smear Fungal Cult - Other Sources Final 11/11/19- 1029 ML No Growth Week 4 * ML - Main Lab . END OF REPORT DEPARTMENT OF PATHOLOGY, [address] [place] [address] Lonnie Garcia M.D. Director [facility] # [id number] 7 SEE RESULT BELOW Name: RALPH MARKS : [address]: Cuab Rivas MD Acct: [id number] Unit: [id number] AGE: 59 Location: [facility] Re10/01/19 SEX: M Status: REG REF SPEC: [id number] DINA: 10/01/19-[address]: Cuba Rivas MD REQ: [id number] RECD: 10/01/19-1601 STATUS: COMP _ SOURCE: [facility]: ORDERED: Culture Stain COMMENTS: [id number] Specimen Description EYE,EAR,WOUND,NOSE Procedure Result Reported Site Wound/Misc Gram Stain Final 10/02/19- 0827 ML 2+ Neutrophils 2+ Epithelial Cells No Organisms Seen Wound/Misc Culture Final 10/03/19- 1016 ML No Growth Day 2 * ML - Main Lab . END OF REPORT DEPARTMENT OF PATHOLOGY, [address] [place] [address] Lonnie Garcia M.D. Director [facility] # [id number] 8 SEE RESULT BELOW Name: RALPH MARKS : [address]: Cuba Rivas MD Acct: [id number] Unit: [id number] AGE: 59 Location: [facility] Re08/13/19 SEX: M Status: REG REF SPEC: [id number] DINA: 08/13/[address]: Cuba Rivas MD REQ: [id number] RECD: 08/13/19 STATUS: COMP _ [place] [facility] [place] [facility]: ORDERED: Culture Stain COMMENTS: [id number] Specimen Description right maxillary sinus Procedure Result Reported Site Wound/Misc Gram Stain Final 08/13/19- 1458 ML 4+ Neutrophils 2+ Epithelial Cells Possible 1+ Gram Positive Cocci Wound/Misc Culture Final 08/15/19- 1011 ML No Growth Day 2 * ML - Main Lab . END OF REPORT DEPARTMENT OF PATHOLOGY, [address] [place] [address] Lonnie Garcia M.D. 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, unspecified J32.9 Chronic sinusitis, unspecified Office Visit 09/12/2019 11:15a Kizzy Joyner J32.9 Chronic 09/25/07 MD Evelyn sinusitis, unspecified 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, 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, extrnod and solid organ sites Office Visit 06/18/2019 11:15a Anya,Kizzy Santos C32.9 Malignant 09/25/07 MD Evelyn neoplasm of larynx, 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, extrnod and solid organ sites R07.0 Pain in throat Assessments Date Code Description Provider 11/07/2019 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 Cuba Rivas MD 11/07/2019 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, unspecified Cuba Rivas MD 11/01/2019 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 Cuba Rivas MD 10/10/2019 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 Cuba Rivas MD 10/10/2019 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, unspecified Cuba Rivas MD 10/10/2019 J32.9 Chronic sinusitis, unspecified Cuba Rivas MD 10/01/2019 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, unspecified Cuba Riavs MD 10/01/2019 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 Cuba Rivas MD 10/01/2019 J32.9 Chronic sinusitis, tenishaified Cuba Rivas MD 09/12/2019 J32.9 Chronic sinusitis, unspecified Cuba Rivas MD 09/12/2019 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, unspecified Cuba Rivas MD 09/12/2019 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, extranodal and Cuba Rivas MD solid organ site 08/13/2019 J01.00 Acute maxillary sinusitis, tenishaified Cuba Rivas MD 08/13/2019 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, unspecified Cuba Rivas MD 08/13/2019 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, extranodal and Cuba Rivas MD solid organ site 07/11/2019 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, tenishaified Cuba Rivas MD 07/11/2019 J01.00 Acute maxillary sinusitis, tenishaified Cuba Rivas MD 06/18/2019 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
--- OUTSIDE RECORDS SUMMARY | 2019-12-15 01:56 | XMS REPORT | Continuity of Care Document ---
:1960 External Reference #:[id number] Author Name Cruz Wilson MD (transmitted by agent of provider Linnea Mariscal) Address [address] [place] [id number] Care Team Providers Name Role Phone Dianne Day MD - Internal Care Team Information [employer] [phone] Medicine Nova Blair MD - Hematology & Care Team Information [employer] Oncology Problems Description No Information Available Social [...] Test Result H/L Range Note Leukemia/Lym 11/14/2019 [facility] Path Interpretation (SEE NOTE ) 1 phoma Phenot [address] 2-8 [place] [address] [phone] Path Interpret 9-15 Marker TNP Path Interpret > 16 Marker TNP T-Cell Lymphoma 11/14/2019 [facility] T-Cell Specimen Bone Marrow Fish [address] [place] [address] [phone] T-Cell Source Left PIC T-Cell Reason for Referral See Comment 2 T-Cell Method See Comment 3 Result See Comment 4 T-Cell Interpretation See Comment 5 T-Cell Released By See Comment 6 Result Summary Normal Result Table See Comment 7 Disclaimer See Comment 8 CBC Auto 11/14/2019 [facility] White Blood 12.7 10^3/uL High 3.5-10.[address] [place] [address] [phone] Red Blood Count 4.44 10^6/uL Normal 4.18-5.48 [...] Red Blood Cells % 0.1 Manual 11/14/2019 [facility] Immature 8.0 % Normal 0-[address] [place] [address] [phone] Neutrophil % 79.0 % Band % 1.0 % Normal 0-8 Lymphocytes % 3.0 % Monocytes % 7.0 % Eosinophils % 1.0 % Basophil % 2.0 % Metamyelocytes % 1.0 % Normal 0-2 Myelocytes % 6.0 % High 0-1 RBC Morphology Normal Normal Laboratory test 11/11/2019 [facility] Point of 85 mg/dL Normal 70-100 [address] [place] [address] [phone] Comp Metabolic 11/04/2019 [facility] Sodium 139 mmol/L Normal 135-[address] [place] [address] [phone] Potassium 3.7 mmol/L Normal 3.5-5.0 Chloride 100 [...] Egfr 94.7 >60 10 Laboratory test 11/04/2019 [facility] PSA Screening < 0.008 Normal 0-4.000 [address] ng/[place] [address] [phone] CBC Auto Diff 11/04/2019 [facility] White Blood 10.3 Normal 3.5-10.[address] Count 10^3/[place] [address] [phone] Red Blood Count 4.49 10^6/uL Normal 4.18-5.48 [...] Red Blood Cells % 0.1 Surgical 11/01/2019 [facility] Surgical SEE RESULT [address] [place] [address] [phone] PDFReport SEE IMAGE Laboratory test 07/16/2019 [facility] PSA Diagnostic < 0.008 Normal 0-4.000 [address] ng/[place] [address] [phone] Comp Metabolic 07/16/2019 [facility] Sodium 139 Normal 135- [address] mmol/[place] [address] [phone] Potassium 3.6 mmol/L Normal 3.5-5.0 Chloride 103 [...] Egfr 89.4 >60 14 CBC Auto 07/16/2019 [facility] White Blood 7.6 10^3/uL Normal 3.5-10.[address] [place] [address] [phone] Red Blood Count 4.62 10^6/uL Normal 4.18-5.48 [...] Blood Cells % 0.2 Basic Metabolic 06/27/2019 [facility] Sodium 137 mmol/L Normal 135-[address] [place] [address] [phone] Potassium 3.7 mmol/L Normal 3.5-5.0 Chloride 103 mmol/L Normal 101-111 Co2 Carbon Dioxide 25 mmol/L Normal 22-32 Anion Gap 9 mmol/L Normal 2-11 Glucose 159 mg/dL High 70-100 Blood Urea Nitrogen 19 mg/dL Normal 6-24 Creatinine 0.99 mg/dL Normal 0.67-1.17 BUN/Creatinine Ratio 19.2 Normal 8-20 Calcium 9.2 mg/dL Normal 8.6-10.3 Egfr Non- 77.4 >60 Egfr 93.6 >60 15 Laboratory test 06/27/2019 [facility] Magnesium 2.1 mg/dL Normal 1.9-2.[address] [place] [address] [phone] CBC Auto Diff 06/24/2019 [facility] White Blood 7.3 Normal 3.5 -10.[address] Count 10^3/[place] [address] [phone] Red Blood Count 4.21 10^6/uL Normal 4.18-5.48 [...] Blood Cells % 0.1 Comp Metabolic 06/24/2019 [facility] Sodium 137 mmol/L Normal 135-[address] [place] [address] [phone] Potassium 3.3 mmol/L Low 3.5-5.0 Chloride 102 [...] Egfr 95.9 >60 16 Laboratory test 06/24/2019 [facility] PSA Diagnostic < 0.008 Normal 0-4.000 [address] ng/[place] [address] [phone] Magnesium 1.8 mg/dL Low 1.9-2.7 Basic Metabolic 06/10/2019 [facility] Sodium 139 mmol/L Normal 135-145 Panel [address] [place] [address] [phone] Potassium 4.0 mmol/L Normal 3.5-5.0 Chloride 104 mmol/L Normal 101-111 Co2 Carbon Dioxide 29 mmol/L Normal 22-32 Anion Gap 6 mmol/L Normal 2-11 Glucose 133 mg/dL High 70-100 Blood Urea Nitrogen 18 mg/dL Normal 6-24 Creatinine 0.94 mg/dL Normal 0.67-1.17 BUN/Creatinine Ratio 19.1 Normal 8-20 Calcium 9.0 mg/dL Normal 8.6-10.3 Egfr Non- 82.1 >60 Egfr 99.4 >60 18 Laboratory test 06/10/2019 [facility] Magnesium 2.0 mg/dL Normal 1.9-2.[address] [place] [address] [phone] Comp Metabolic 06/07/2019 [facility] Sodium 139 mmol/L Normal 135-[address] [place] [address] [phone] Potassium 3.6 mmol/L Normal 3.5-5.0 Chloride 104 [...] Egfr 101.9 >60 19 CBC Auto 06/07/2019 [facility] White Blood 9.1 10^3/uL Normal 3.5-10.[address] [place] [address] [phone] Red Blood Count 4.38 10^6/uL Normal 4.18-5.48 [...] % Nucleated Red Blood Cells % 0.0 Comp Metabolic 05/28/2019 [facility] Sodium 140 mmol/L Normal 135-[address] [place] [address] [phone] Potassium 3.8 mmol/L Normal 3.5-5.0 Chloride 105 mmol/L Normal 101-111 Co2 Carbon Dioxide 29 mmol/L Normal 22-32 Anion Gap 6 mmol/L Normal 2-11 Glucose 112 mg/dL High 70-100 Blood Urea Nitrogen 22 mg/dL Normal 6-24 Creatinine 0.93 mg/dL Normal 0.67-1.17 BUN/Creatinine Ratio 23.7 High 8-20 Calcium 9.2 mg/dL Normal 8.6-10.3 Total Protein 6.6 g/dL Normal 6.4-8.9 Albumin 4.2 g/dL Normal 3.2-5.2 Globulin 2.4 g/dL Normal 2-4 Albumin/Globulin Ratio 1.8 Normal 1-3 Total Bilirubin 0.40 mg/dL Normal 0.2-1.0 Alkaline Phosphatase 63 U/L Normal 34-104 Alt 18 U/L Normal 7-52 Ast 15 U/L Normal 13-39 Egfr Non- 83.2 >60 Egfr 100.6 >60 20 CBC Auto 05/28/2019 [facility] White Blood 7.0 10^3/uL Normal 3.5-10.[address] [place] [address] [phone] Red Blood Count 4.40 10^6/uL Normal 4.18-5.48 Hemoglobin 13.7 g/dL Low 14.0-18.0 Hematocrit 40 % Low 42-52 Mean Corpuscular Volume 92 fL Normal 80-94 Mean Corpuscular Hemoglobin 31 pg Normal 27-31 Mean Corpuscular HGB Conc 34 g/dL Normal 31-36 Red Cell Distribution Width 16 % High 10-15 Platelet Count 197 10^3/uL Normal 150-450 Mean Platelet Volume 5.9 fL Low 7.4-10.4 Abs Neutrophils 5.5 10^3/uL Normal 1.5-7.7 Abs Lymphocytes 0.6 10^3/uL Low 1.0-4.8 Abs Monocytes 0.7 10^3/uL Normal 0-0.8 Abs Eosinophils 0.1 10^3/uL Normal 0-0.6 Abs Basophils 0.0 10^3/uL Normal 0-0.2 Abs Nucleated RBC 0.0 10^3/uL Granulocyte % 79.2 % Lymphocyte % 8.9 % Monocyte % 10.1 % Eosinophil % 1.3 % Basophil % 0.5 % Nucleated Red Blood Cells % 0.1 1 FINAL DIAGNOSIS: Specimen Source: Bone marrow [...] examined for quality purposes. Electronically signed by: Genvea Nicholson MD 11/15/19 1761 Technical component performed by: [facility] [place] [address] Claims Vice President: Zaire Duran II, MD, PhD. 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 This test was developed and its performance characteristics determined by [facility] in a manner consistent with CLIA requirements. It has not been cleared or approved by the U.S. Food and Drug Administration. This FISH test does not rule out other chromosome abnormalities. Test Performed by: [place] [address] Chain Forming Machine Operator: Zaire Duran M.D. Ph.D.; CLIA# [id number] 9 Container Repairer: [id number] Because ethnic data is not always [...] levels of PSA measured using the [employer] DXI Hybritech immunoassay should not be interpreted [...] [address]: Cuba Rivas MD Acct: [id number] Unit: [id number] AGE: 59 Location: [place] Re11/01/19 SEX: M [place] [facility] [place]C: [id number] DINA: 11/01/19- [facility] DR: Cuba Rivas MD REQ: [id number] RECD: 11/01/19 STATUS: SOUT _ ORDERED: Decal, [...] morphology to the patient's original T/NK lymphoma ([id number]). This population demonstrates areas of focal necrosis and high mitotic activity. Immunohistochemical stains performed on blocks B and C with appropriate controls demonstrate strong and diffuse staining in these areas for CD56 and CD3 and support the diagnosis of recurrent malignancy. CONTINUED ON NEXT PAGE DEPARTMENT OF PATHOLOGY, [address] [place] [address] Lonnie Garcia M.D. Director [facility] # [id number] Histochemical stains for fungal organisms (PAS and [...] 1145 END OF REPORT DEPARTMENT OF PATHOLOGY, [address] [place] [address] Lonnie Garcia M.D. Director [facility] # [id number] 13 Serum levels of PSA measured using the [employer] DXI Hybritech immunoassay should not be interpreted [...] Serum levels of PSA measured using the [employer] D[employer] Hybritech immunoassay should not be interpreted [...] 15-29 5 Kidney failure <15 (or dialysis) 20 Because ethnic data is not always readily [...] 5 Kidney failure <15 (or dialysis) Procedures Description No Information Available Medical Devices Description No Information Available Encounters Description No Information Available Assessments Description No Information Available Plan of Treatment Future Appointment(s):11/25/2019 4:15 pm - Cruz Wilson MD at [facility] Functional Status Description No Information Available Mental Status Description No Information Available Referrals Description No Information Available
[2019-12-15] MEDS ORDERED: Dronabinol CAP* 2.5 MG PO PRN (02:40)
[2019-12-15] MEDS ORDERED: LORazepam TAB(*) 0.5 MG PO PRN (02:40)
[2019-12-15] MEDS ORDERED: Piperacillin/Tazobac ADVAN(*) 3.375 GM in NS 0.9% 100 ML* 100 ML IVPB ONE (02:44)
[2019-12-15] MEDS ORDERED: Morphine INJ* 2 MG/ML 1 ML SYRINGE (TWO MG - NEW SYRINGE VERSION) IV PRN (02:45)
[2019-12-15] MEDS ORDERED: Acetaminophen TAB* 325 MG PO PRN (02:45)
[2019-12-15] MEDS ORDERED: Zosyn per Pharmacy* NOTE FOLLOW UP SCH (03:00)
[2019-12-15] MEDS ORDERED: Enoxaparin(*) 40 MG/0.4 ML SYR SUBCUT SCH (03:00)
[2019-12-15] MEDS ORDERED: Potassium Chloride* LIQUID 20 MEQ/15 ML UDC PO ONE ×2 (03:45→13:13)
[2019-12-15] MEDS ORDERED: metroNIDAZOLE IV 500 MG/100ML* 500 MG/100 ML BAG IVPB SCH (05:00)
--- NOTE | 2019-12-15 06:16 | HP ---
HISTORY AND PHYSICAL: DATE OF ADMISSION: 12/15/19 HISTORY OF PRESENT ILLNESS: This is a 59-year-old male with past medical history significa nt for lymphoma NK/T-cell, prostate cancer, throat cancer or laryngeal cancer, who presented to the E D with chief complaint of abdominal pain and fever. 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 Blair. The patient recently relapsed from his NK/T-cell lymphom a and is receiving chemo, which they have managed for the past 3 days and also the patient was seen t o have diverticulitis on a CT of abdomen and pelvis of 12/11/19 and was placed on p.o. antibiotics wh ich failed and the patient was seen in the ED on the morning of 12/14/19. He was rehydrated because he presented with dehydration, poor p.o. intake, vomiting and nausea with abdominal pain and bloody s tool. He was sent to home and he came back again after he spiked a fever. Before then, he had alrea dy been advised by Dr. Blair that whenever he spikes a fever, he should call, so he did what he was told to do and Dr. Blair asked him to report back to the ED. He is complaining of abdominal pain, i t is mainly located on the epigastric area. He said the pain was severe initially and when he came t o ED, he was given some pain medications, which brought it down to about 5 that he said before it was about 8/10 and is constant. He denied chest pain, shortness of breath, but reported fever. The pat ient already on p.o. antibiotics, Levaquin and Flagyl, which seemed not to help him at this time. PAST MEDICAL HISTORY: Lymphoma NK/T-cell, prostate cancer, laryngeal throat cancer. PAST SURGICAL HISTORY: He has a history of TURP, prostatectomy and tonsillectomy, also had echocardi ogram 06/09/16. CURRENT MEDICATIONS: Include: 1. Vitamin D 5000 units p.o. daily. 2. Dronabinol or Marinol 5 mg p.o. t.i.d. p.r.n. 3. Hydrocodone/acetaminophen p.o. q. 6 hours p.r.n. 4. Lorazepam 0.5 mg p.o. q.6 p.r.n. 5. Loratadine 10 mg p.o. daily. 6. Omeprazole 20 mg p.o. daily. 7. Currently on Levaquin 750 mg p.o. daily for 10 days. 8. Currently on metronidazole 500 mg p.o. q.8. 9. Uses Zofran 4 mg p.o. q.4 for nausea and vomiting. 10. Currently also uses scopolamine patch 1.5 mg patch every 72 hours. 11. The patient said he is also on Lupron Depo every 3 months 22.5 mg IM. ALLERGIES: There is no known drug allergies. FAMILY HISTORY: Positive for cancer, maternal grandmother had cancer, mother is alive and well. SOCIAL HISTORY: . Currently working. He is a former smoker. He said he quit 23 years ago, used to smoke 2 packs per day for 20 years. Denied use of alcohol. Daily caffeine consumer on an av erage of 1 cup of black coffee per day. Denied use of illicit drugs. Does not exercise. REVIEW OF SYSTEMS: Positive for fever of 101 degrees Fahrenheit, positive for abdominal pain, nausea . Denies ear symptoms. Denies nasal symptoms. Cardiovascular: Denies chest pain, pressure, heart a ttack or rheumatic fever. Respiratory: Denies coughing up blood, shortness of breath or wheezing. GI : Denies vomiting blood. : Denies pain on urination or blood in urine. Musculoskeletal: Denies a rthritis. Integumentary: Denies skin, hair or nail symptoms. Neuro: Reported weakness. Denies he adache, numbness, tingling. Psych: Denies anxiety and depression. All other systems reviewed and ar e negative. PHYSICAL EXAMINATION CONSTITUTIONAL: Well developed, well nourished, alert, and in no obvious distress. VITAL SIGNS: Initial vitals: Temperature 101 degrees Fahrenheit, heart rate 95, respiratory rate 18 , BP 115/87; pulse symmetric, 95. HEENT: Normocephalic, atraumatic. Eyes: Conjunctivae normal. NECK: Normal range of motion. Supple. No JVD. No stridor. No tracheal deviation. PULMONARY: Normal effort. No respiratory distress. No wheezes. No rales. Clear to auscultation b ilaterally. CARDIOVASCULAR: S1, S2 heard. No murmurs. Regular rate and rhythm. No rubs. No friction. No gall ops. ABDOMEN: Soft. Positive mid abdominal tenderness. No distension. No guarding. No rebound. No pal pable mass. MUSCULOSKELETAL: No edema. Acyanotic. Moves all 4 extremities. Normal range of motion. NEUROLOGIC: Alert, oriented x3. CN II through XII grossly intact. No focal deficit. PSYCHIATRIC: Normal mood and affect. Pleasant. DIAGNOSTIC STUDIES/LAB DATA: Hematology: WBC 3.2, RBC 3.63, hemoglobin 11, hematocrit 32, MCV 89, MCH 30, MCHC 34, RDW 15, platelet count 71, MPV 6, neutrophils 75.3, absolute neutrophil count 2.4, m yelocytes 2. Normal RBC morphology. Chemistry: Sodium 134, initial potassium was 3.1, potassium wa s repleted and level now is 3.7, chloride 101, bicarbonate 29, anion gap 4, BUN 2, creatinine 0.76, e stimated GFR non- 105, BUN creatinine ratio 2.6. Glucose 104, lactic acid 0.6, calciu m 8.3, magnesium 1.7, total bilirubin 0.6, AST 56, ALT 90, alkaline phosphatase 77, total protein 5.3 , albumin 2.9, globulin 2.4, albumin/globulin ratio 1.2. Urine is negative. CT abdomen and pelvis on 12/11/19 revealed: 1. Diverticulosis throughout the colon with pericolonic inflammatory changes along the ascending col on consistent with diverticulitis. There is no loculated fluid collection to suggest abscess. 2. Fatty liver infiltration of the liver. 3. Atherosclerosis. CT abdomen and pelvis on 12/14/19 revealed colonic diverticulosis, but of note the patient had been o n antibiotics for the past few days, revealed left adrenal lipoma, myelolipoma or adrenal adenoma, st atus post TURP procedure, 2 nodules in the subcutaneous fat of the left buttock suggesting sebaceous cysts. DICTATION ENDS HERE [id number]/[facility] #: [id number]
[2019-12-15] MEDS ORDERED: Magnesium Sulfate 2 GM IV* 2 GM/50 ML BAG IVPB ONE (06:33)
--- NOTE | 2019-12-15 08:50 | HP ---
HISTORY AND PHYSICAL: ADDENDUM: DATE OF ADMISSION: 12/15/19 ASSESSMENT AND PLAN: This is a 59-year-old male with past medical history significant for NK/T-cell lymphoma, recently relapsed, status post cycle 1; history of failed outpatient diverticulit is treatment and remote history of prostate cancer, who presented with abdominal pain, fever, nausea, and vomiting. The patient was admitted to the medical floor for the colitis. I will start IV Zosyn 3.375 g 8 hourl y. I will convert the p.o. metronidazole to IV 500 mg IV q.8 hours. IV fluid normal saline at 125 m L per hour. The patient will be n.p.o. at the moment and advance as the patient can tolerate p.o. For pain control, we use oxycodone for moderate pain 1 tablet q.6 p.r.n. For severe pain, IV morphin e 2 mg q.4 p.r.n. For nausea and vomiting, IV Zofran 4 mg IV q.4 hours. For hypokalemia, the patient already received 40 mEq potassium chloride p.o. For hypomagnesemia, magnesium sulfate 2 g over 2 hours. Follow up BMP and CBC. For fever, acetaminophen 650 mg p.o. q.4 hours p.r.n. For gastroesophageal reflux disease, Protonix 40 mg p.o. daily. For NK/T-cell lymphoma, the patient is to continue his chemotherapy with Hem-Onc, and Hem-Onc to [facility] inpatient. DVT prophylaxis, I will hold Lovenox for now because of risk of bleeding and also follow platelet cou nt. Code status, the patient will remain full code at this time. Fluids and electrolytes, repleted as needed. For diet, regular diet as the patient could tolerate. TIME SPENT: Time spent on this admission was 60 minutes, greater than half of the time was spent fac e-to-face with the patient obtaining my history and physical, the other half of the time was spent go ing over the plan of care with the patient and implementing plan of care. Thank you very much for the opportunity to partake in the healthcare needs of this don gentleman. [id number]/[facility] #: [id number]
[2019-12-15] MEDS ORDERED: Docusate CAP* 100 MG PO SCH (09:00)
--- NOTE | 2019-12-15 09:35 | PN ---
Subjective Date of Service: 12/15/19 Interval History: Brief update: Admitted this morning. Stopped metronidazole - already on Zosyn Patient reports continued BRBPR but resolution in abdominal pain. No further fevers since admission. Objective Active Medications: Acetaminophen (Tylenol Tab*) 650 mg PO Q4H PRN PRN Reason: MILD PAIN or TEMP > 100.4 Cetirizine HCl (Zyrtec*) 10 mg PO DAILY [facility] Cholecalciferol (Vitamin D Tab*) 5,000 units PO DAILY [facility] Docusate Sodium (Colace Cap*) 100 mg PO BID VAMSHI Dronabinol (Marinol Cap*) 5 mg PO TID PRN PRN Reason: CRAVING Sodium Chloride (Ns 0.9% 1000 Ml) 1,000 mls @ 125 mls/hr IV PER RATE [facility] Piperacillin Sod/Tazobactam (Sod 3.375 gm/ Sodium Chloride) 100 mls @ 25 mls/ hr IVPB Q8H VAMSHI Lorazepam (Ativan Tab(*)) 0.5 mg PO Q6H PRN PRN Reason: NAUSEA Miscellaneous (Ativan Pyxis Shah) 1 ea N/A .ATIVAN IV SHAH PRN PRN Reason: PYXIS SHAH Morphine Sulfate (Morphine Inj (Syringe))*) 2 mg IV Q4H PRN PRN Reason: PAIN - MILD Multivitamins (Theragran Tab*) 1 tab PO QAM [facility] Pantoprazole Sodium (Protonix Tab*) 40 mg PO DAILY [facility] Pharmacy Consult (Zosyn Per Pharmacy*) 1 note FOLLOW UP .ZOSYN PER PHARMACY [facility] Vital Signs - 8 hr 12/15/19 12/15/19 12/15/19 01:58 02:28 02:58 Temperature Pulse Rate Respiratory Rate Blood Pressure 137/99 116/93 127/96 (mmHg) O2 Sat by Pulse Oximetry 12/15/19 12/15/19 12/15/19 03:28 03:39 03:44 Temperature Pulse Rate 92 Respiratory 20 Rate Blood Pressure 140/95 124/98 (mmHg) O2 Sat by Pulse 90 Oximetry 12/15/19 12/15/19 12/15/19 03:46 03:58 04:00 Temperature Pulse Rate 89 83 91 Respiratory Rate Blood Pressure 130/92 (mmHg) O2 Sat by Pulse 90 85 88 Oximetry 03/12/15/19 12/15/19 04:28 04:51 05:14 Temperature 99.2 F 98.3 F Pulse Rate 110 110 81 Respiratory 16 18 Rate Blood Pressure 128/89 128/89 139/77 (mmHg) O2 Sat by Pulse 95 95 95 Oximetry 12/15/19 12/15/19 05:41 07:49 Temperature 98.5 F Pulse Rate 71 Respiratory 18 20 Rate Blood Pressure 138/75 (mmHg) O2 Sat by Pulse 94 Oximetry Oxygen Devices in Use Now: None Result Diagrams: 12/14/19 00:00 12/15/19 06:02 Assess/Plan/Problems-Billing Assessment: 59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 - Patient Problems (1) Diverticulitis Comment: Pt improved last admission on cipro/Flagyl, however he was unable to tolerate oral medications given history of larynx cancer, and returns with recurrance of abdominal pain and fevers. - cont Zosyn (12/14 - ) - s/p cipro/flagyl (12/10-11/15) - advance diet as tolerated - IVF and pain meds prn (2) Heartburn Comment: - cont home PPI (3) Anxiety Comment: - cont home lorazepam prn (4) Larynx cancer Comment: Pt on chemo, follows with Dr. Blair. - cont marinol (5) DVT prophylaxis Comment: hold lovenox in setting of BRBPR
[2019-12-15 09:41] LABS: Calcium 7.8 mg/dL (8.6-10.3); Magnesium 1.6 mg/dL (1.9-2.7); Potassium 3.5 mmol/L (3.5-5.0)
[2019-12-15 09:47] LABS: BUN/Creatinine Ratio 2.6 (8-20); EGFR African American 125.1 (>60); EGFR Non-African American 103.4 (>60)
[2019-12-15] MEDS: ZOSYN 3.375 GM Q8H per EXTENDED INFUSION IVPB SCH ×6 (09:47→23:55)
[2019-12-15] MEDS: Vitamin THERAPEUTIC TAB PO SCH (09:48)
[2019-12-15] MEDS: Cetirizine* 10 MG TAB PO SCH (09:48)
[2019-12-15] MEDS: Cholecalciferol TAB* 1000 UNITS PO SCH (09:48)
[2019-12-15] MEDS: Pantoprazole TAB * 40 MG TAB PO SCH (09:49)
[2019-12-15] MEDS ORDERED: Ondansetron ODT TAB* 4 MG SL PRN (13:15)
[2019-12-15] MEDS: NS 0.9% 1000 ML** 1,000 ML IV SCH ×2 (16:01→23:56)
[2019-12-16 06:07] LABS: Magnesium 1.8 mg/dL (1.9-2.7)
[2019-12-16 06:21] LABS: Hematocrit 33 % (42-52); Hemoglobin 11.1 g/dL (14.0-18.0); Mean Corpuscular HGB Conc 34 g/dL (31-36); Mean Corpuscular Hemoglobin 30 pg (27-31); Mean Corpuscular Volume 89 fL (80-94); Mean Platelet Volume 6.2 fL (7.4-10.4); Platelet Count 143 10^3/uL (150-450); Red Blood Count 3.68 10^6 /uL (4.18-5.48); Red Cell Distribution Width 15 % (10-15); White Blood Count 3.2 10^3/uL (3.5-10.8)
[2019-12-16 06:35] LABS: BUN/Creatinine Ratio 2.3 (8-20); Calcium 8.2 mg/dL (8.6-10.3); EGFR African American 107.3 (>60); EGFR Non-African American 88.6 (>60); Potassium 4.1 mmol/L (3.5-5.0)
[2019-12-16 06:45] LABS: Polychromasia 1+
[2019-12-16 06:46] LABS: ABS Lymphocytes 0.3 10^3/ul (1.0-4.8); ABS Monocytes 0.7 10^3/ul (0-0.8); ABS Neutrophils 2.1 10^3/ul (1.5-7.7); Eosinophil % 0.9 %; Lymphocyte % 10.2 %; Nucleated Red Blood Cells % 0.2
[2019-12-16] MEDS ORDERED: Magnesium Sulfate 1 GM IV* 1 GM/100 ML BAG IV ONE (08:27)
[2019-12-16] MEDS: Pantoprazole TAB * 40 MG TAB PO SCH (09:08)
[2019-12-16] MEDS: Cholecalciferol TAB* 1000 UNITS PO SCH (09:08)
[2019-12-16] MEDS: ZOSYN 3.375 GM Q8H per EXTENDED INFUSION IVPB SCH ×6 (09:08→23:30)
[2019-12-16] MEDS: Cetirizine* 10 MG TAB PO SCH (09:08)
[2019-12-16] MEDS: Vitamin THERAPEUTIC TAB PO SCH (09:08)
--- NOTE | 2019-12-16 09:40 | PN ---
Subjective Date of Service: 12/16/19 Interval History: No acute events overnight. No fevers since ER. Reports significant improvement in abdominal pain but still little return of appetite. Tolerating fluids and small amounts of food but doesn't desire more. Having soft brown stool, no longer blood. Objective Active Medications: Acetaminophen (Tylenol Tab*) 650 mg PO Q4H PRN PRN Reason: MILD PAIN or TEMP > 100.4 Cetirizine HCl (Zyrtec*) 10 mg PO DAILY [facility] Last Admin: 12/16/19 09:08 Dose: 10 mg Cholecalciferol (Vitamin D Tab*) 5,000 units PO DAILY [facility] Last Admin: 12/16/19 09:08 Dose: 5,000 units Dronabinol (Marinol Cap*) 5 mg PO TID PRN PRN Reason: CRAVING Piperacillin Sod/Tazobactam (Sod 3.375 gm/ Sodium Chloride) 100 mls @ 25 mls/ hr IVPB Q8H [facility] Last Admin: 12/16/19 09:08 Dose: 25 mls/hr Lorazepam (Ativan Tab(*)) 0.5 mg PO Q6H PRN PRN Reason: NAUSEA Miscellaneous (Ativan Pyxis Shah) 1 ea N/A .ATIVAN IV SHAH PRN PRN Reason: PYXIS SHAH Morphine Sulfate (Morphine Inj (Syringe))*) 2 mg IV Q4H PRN PRN Reason: PAIN - MILD Multivitamins (Theragran Tab*) 1 tab PO QAM [facility] Last Admin: 12/16/19 09:08 Dose: 1 tab Ondansetron HCl (Zofran Odt Tab*) 4 mg SL Q6H PRN PRN Reason: NAUSEA/VOMITING Pantoprazole Sodium (Protonix Tab*) 40 mg PO DAILY [facility] Last Admin: 12/16/19 09:08 Dose: 40 mg Pharmacy Consult (Zosyn Per Pharmacy*) 1 note FOLLOW UP .ZOSYN PER PHARMACY [facility] Vital Signs - 8 hr 12/16/19 12/16/19 12/16/19 02:06 07:47 09:14 Temperature 98.7 F 98.6 F Pulse Rate 77 94 Respiratory 18 18 16 Rate Blood Pressure 134/78 142/89 (mmHg) O2 Sat by Pulse 94 94 Oximetry Oxygen Devices in Use Now: None Appearance: well appeairng, nad Eyes: No Scleral Icterus Ears/Nose/Mouth/Throat: Mucous Membranes Moist, - - thrush Neck: NL Appearance and Movements; NL JVP, Trachea Midline Respiratory: Symmetrical Chest Expansion and Respiratory Effort, Clear to Auscultation Cardiovascular: NL Sounds; No Murmurs; No JVD, RRR Abdominal: NL Sounds; No Tenderness; No Distention, No Hepatosplenomegaly Extremities: No Edema Skin: No Rash or Ulcers Neurological: Alert and Oriented x 3 Result Diagrams: 12/16/19 05:28 12/16/19 05:30 Microbiology and Other Data: Microbiology 12/14/19 00:00 Aerobic Blood Culture - Preliminary Blood Venous No Growth Day 1 Anaerobic Blood Culture - Preliminary No Growth Day 1 12/14/19 23:59 Aerobic Blood Culture - Preliminary Blood Venous No Growth Day 1 Anaerobic Blood Culture - Preliminary No Growth Day 1 Assess/Plan/Problems-Billing Assessment: 59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 - Patient Problems (1) Diverticulitis Comment: Pt improved last admission on cipro/Flagyl, however he was unable to tolerate oral medications given history of larynx cancer, and returns with recurrance of abdominal pain and fevers. - cont Zosyn (12/14 - ); Onc recommending to complete another day and DC tomorrow if symptoms continue to improve - s/p cipro/flagyl (12/10-11/15) - advance diet as tolerated - IVF and pain meds prn (2) Heartburn Comment: - cont home PPI (3) Anxiety Comment: - cont home lorazepam prn (4) Larynx cancer Comment: Pt on chemo, follows with Dr. Blair. - cont marinol - cont clotrimazole for thrush (5) DVT prophylaxis Comment: start lovenox
--- NOTE | 2019-12-16 09:56 | PN ---
Progress Note - Progress Note Date of Service: 12/16/19 SOAP: Subjective: []Admitted 12/11-12/13 after failing outpatient management of diverticulitis. Unfortunately he was re-admitted yesterday in the early AM d/t new temp. 102 @ home, 101 in ER. Fortunately, he is not neutropenic. Tells me stomach pain is better, but still sore. Regular BMs, soft and formed. No further blood in stools. Rare cough, no sore throat. No SOB. Medications: Acetaminophen (Tylenol Tab*) 650 mg PO Q4H PRN PRN Reason: MILD PAIN or TEMP > 100.4 Cetirizine HCl (Zyrtec*) 10 mg PO DAILY [facility] Last Admin: 12/16/19 09:08 Dose: 10 mg Cholecalciferol (Vitamin D Tab*) 5,000 units PO DAILY [facility] Last Admin: 12/16/19 09:08 Dose: 5,000 units Dronabinol (Marinol Cap*) 5 mg PO TID PRN PRN Reason: CRAVING Piperacillin Sod/Tazobactam (Sod 3.375 gm/ Sodium Chloride) 100 mls @ 25 mls/ hr IVPB Q8H [facility] Last Admin: 12/16/19 09:08 Dose: 25 mls/hr Lorazepam (Ativan Tab(*)) 0.5 mg PO Q6H PRN PRN Reason: NAUSEA Miscellaneous (Ativan Pyxis Shah) 1 ea N/A .ATIVAN IV SHAH PRN PRN Reason: PYXIS SHAH Morphine Sulfate (Morphine Inj (Syringe))*) 2 mg IV Q4H PRN PRN Reason: PAIN - MILD Multivitamins (Theragran Tab*) 1 tab PO QAM [facility] Last Admin: 12/16/19 09:08 Dose: 1 tab Ondansetron HCl (Zofran Odt Tab*) 4 mg SL Q6H PRN PRN Reason: NAUSEA/VOMITING Pantoprazole Sodium (Protonix Tab*) 40 mg PO DAILY [facility] Last Admin: 12/16/19 09:08 Dose: 40 mg Pharmacy Consult (Zosyn Per Pharmacy*) 1 note FOLLOW UP .ZOSYN PER PHARMACY [facility] Objective: [] Vital Signs Temp Pulse Resp BP Pulse Ox 98.6 F 94 18 142/89 94 12/16/19 07:47 12/16/19 07:47 12/16/19 09:14 12/16/19 07:47 12/16/19 07:47 A&Ox3, EOMI, neuro grossly non-focal MMM, +trush to tongue (though improved as compared to 12/11) HRR, S1S2 LS clear throughout, no cough noted +BS, abd. soft, round, and non-tender throughout +PP=bilat., no edema Laboratory Results - last 24 hr 12/15/19 12/16/19 12/16/19 06:02 05:28 05:30 WBC 3.2 L RBC 3.68 L Hgb 11.1 L Hct 33 L MCV 89 MCH 30 MCHC 34 RDW 15 Plt Count 143 L MPV 6.2 L Neut % (Auto) 65.4 Lymph % (Auto) 10.2 Brooke % (Auto) 22.8 Eos % (Auto) 0.9 Baso % (Auto) 0.7 Absolute Neuts (auto) 2.1 Absolute Lymphs (auto) 0.3 L Absolute Monos (auto) 0.7 Absolute Eos (auto) 0.0 Absolute Basos (auto) 0.0 Absolute Nucleated RBC 0.0 Immature Gran % 4.0 Neutrophils % 63.0 Lymphocytes % 10.0 Monocytes % 22.0 Eosinophils % 1.0 Metamyelocytes % 2.0 Myelocytes % 1.0 Promyelocytes % 1.0 Nucleated RBC % 0.2 Normal RBC Morphology Not Reportable Polychromasia 1+ Anisocytosis 1+ Sodium 137 Potassium 4.1 Chloride 100 L Carbon Dioxide 30 Anion Gap 7 BUN 2 L 2 L Creatinine 0.77 0.88 Est GFR ( Amer) 125.1 107.3 Est GFR (Non-Af Amer) 103.4 88.6 BUN/Creatinine Ratio 2.6 L 2.3 L Glucose 81 75 Calcium 8.2 L Magnesium 1.8 L Assessment: []59 yo male well known to oncology due to his diagnosis of prostate cancer, squamous cell head and neck, and most 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 He is s/p C1 P-GemOx on 12/02/19 c/b diverticulitis diagnosed on 12/09 that failed outpatient management and was admitted 12/11 for continuous IV fluids and IV antibiotics. He improved significantly 12/14/19 and was discharged home on PO antibiotics and clears, however he unfortunately spiked a temperature overnight and was re-admitted 12/15/19 AM. He has not had any further fevers since presentation and tells me he feels a little better. To note he has been in contact with healthcare providers but no clear exposure to COVID-19. He does not have any resp. symptoms and has defervesced on current antibiotics, therefore no indication for testing at this time. Plan: []Management as per hospitalist - agree with IV antibiotics and would consider a full 3 days as he failed outpatient management Chemo will be delayed x1 week, plan at this time is C2 12/22 WITHOUT pegaspergase - resume clotrimazole chelsea
[2019-12-16] MEDS ORDERED: Clotrimazole TROCHE* 10 MG TROCHE SCH (11:00)
[2019-12-16] MEDS: Clotrimazole TROCHE* 10 MG TROCHE SCH ×4 (11:57→23:30)
[2019-12-16 17:48] LABS: Vitamin D Total 25(OH) 77.7 ng/mL (20-50)
[2019-12-16] MEDS: Dronabinol CAP* 2.5 MG PO SCH (18:06)
[2019-12-16] MEDS: Enoxaparin(*) 40 MG/0.4 ML SYR SUBCUT SCH ×2 (23:30→23:38)
[2019-12-17] MEDS: Clotrimazole TROCHE* 10 MG TROCHE SCH ×2 (05:53→11:09)
[2019-12-17] MEDS: ZOSYN 3.375 GM Q8H per EXTENDED INFUSION IVPB SCH ×2 (07:58)
[2019-12-17] MEDS: Cholecalciferol TAB* 1000 UNITS PO SCH (07:58)
[2019-12-17] MEDS: Vitamin THERAPEUTIC TAB PO SCH (07:59)
[2019-12-17] MEDS: Pantoprazole TAB * 40 MG TAB PO SCH (07:59)
[2019-12-17] MEDS: Cetirizine* 10 MG TAB PO SCH (08:00)
--- NOTE | 2019-12-17 09:30 | PN ---
Progress Note - Progress Note Date of Service: 12/17/19 SOAP: Subjective: []Feels a lot better today. Slept well last night. "They gave me something after 5 last night and I noticed a significant change. Everything just settled. It was the marijuana one?" To note we attempted starting this on 12/11 as an outpatient, however with admission and NPO status it is unclear that this was ever previously used. Denies nausea. Normal BM this AM. Tolerated breakfast. Medications: Acetaminophen (Tylenol Tab*) 650 mg PO Q4H PRN PRN Reason: MILD PAIN or TEMP > 100.4 Last Admin: 12/17/19 05:52 Dose: 650 mg Cetirizine HCl (Zyrtec*) 10 mg PO DAILY [facility] Last Admin: 12/17/19 08:00 Dose: 10 mg Cholecalciferol (Vitamin D Tab*) 5,000 units PO DAILY [facility] Last Admin: 12/17/19 07:58 Dose: 5,000 units Clotrimazole (Mycelex Ivelisse*) 10 mg .SEE ORDER FIVE TIMES DAILY [facility] Last Admin: 12/17/19 05:53 Dose: Not Given Dronabinol (Marinol Cap*) 5 mg PO TID AC [facility] Last Admin: 12/16/19 18:06 Dose: 5 mg Enoxaparin Sodium (Lovenox(*)) 40 mg SUBCUT BEDTIME [facility] Last Admin: 12/16/19 23:38 Dose: Not Given Heparin Sodium (Porcine) (Heparin Flush Port (Ivad)) 5 ml FLUSH TID PRN; Protocol PRN Reason: flush needed Last Admin: 12/17/19 05:49 Dose: 5 ml Piperacillin Sod/Tazobactam (Sod 3.375 gm/ Sodium Chloride) 100 mls @ 25 mls/ hr IVPB Q8H [facility] Last Admin: 12/17/19 07:58 Dose: 25 mls/hr Lorazepam (Ativan Tab(*)) 0.5 mg PO Q6H PRN PRN Reason: NAUSEA Miscellaneous (Ativan Pyxis Shah) 1 ea N/A .ATIVAN IV SHAH PRN PRN Reason: PYXIS SHAH Morphine Sulfate (Morphine Inj (Syringe))*) 2 mg IV Q4H PRN PRN Reason: PAIN - MILD Multivitamins (Theragran Tab*) 1 tab PO QAM [facility] Last Admin: 12/17/19 07:59 Dose: 1 tab Ondansetron HCl (Zofran Odt Tab*) 4 mg SL Q6H PRN PRN Reason: NAUSEA/VOMITING Pantoprazole Sodium (Protonix Tab*) 40 mg PO DAILY [facility] Last Admin: 12/17/19 07:59 Dose: 40 mg Pharmacy Consult (Zosyn Per Pharmacy*) 1 note FOLLOW UP .ZOSYN PER PHARMACY [facility] Objective: [] Vital Signs Temp Pulse Resp BP Pulse Ox 98.5 F 78 16 109/71 96 12/17/19 07:46 12/17/19 07:46 12/17/19 07:46 12/17/19 07:46 12/17/19 07:46 A&Ox3, EOMI Thursh improving Resp. even and non-labored without audible wheeze or rhonchi CAMPOS without obvious deformities Laboratory Results - last 24 hr 12/16/19 05:30 Sodium 137 Potassium 4.1 Chloride 100 L Carbon Dioxide 30 Anion Gap 7 BUN 2 L Creatinine 0.88 Est GFR ( Amer) 107.3 Est GFR (Non-Af Amer) 88.6 BUN/Creatinine Ratio 2.3 L Glucose 75 Calcium 8.2 L Magnesium 1.8 L 25-OH Vitamin D Total 77.7 H Assessment: []59 yo male with recently relapsed NK-Tcell lymphoma of the nares s/p C1 P- GemOx 12/02/19 c/b diverticulitis diagnosed on 12/09 failing outpatient management and subsequently admitted 12/11 for continuous IV fluids and IV antibiotics. He improved significantly and was discharged home on PO antibiotics 12/14/19, unfortunately spiked a temperature overnight and was re-admitted 12/15/19 AM. He has not had any further fevers since presentation and tells me he feels a markedly better today. Plan: []Management as per hospitalist - agree with IV antibiotics and would consider a full 3 days as he failed outpatient management Chemo will be delayed x1 week, plan at this time is C2 12/22 WITHOUT pegaspergase - resume clotrimazole chelsea Plan: []Management as per hospitalist - D3 IV antibiotics, >24 hours without fever, improvement in symptoms therefore can likely go home today - suggest continuing clotrimazole, at least through next week (to notes clotrimazole, dronabinol, and loratab elixir sent in on 12/11) FU onc. 12/23/19
[2019-12-17] MEDS: Dronabinol CAP* 2.5 MG PO SCH (11:09)
[2019-12-17 11:57] VITALS: BP 120/72
--- NOTE | 2019-12-17 18:06 | DS ---
CC: Dr. Dianne Day; Dr. Nova Blair; Blanquita Stephens NP* DISCHARGE SUMMARY: DATE OF ADMISSION: 12/15/19 DATE OF DISCHARGE: 12/17/19 PRIMARY CARE PHYSICIAN: Dr. Dianne Day. ONCOLOGIST: Dr. Nova Blair. PRIMARY DIAGNOSIS: Diverticulitis that failed outpatient management. SECONDARY DIAGNOSES: 1. Relapsed NK/T-cell lymphoma of the nares, on active chemo. 2. History of squamous cell cancer of the head and neck. 3. History of prostate cancer. 4. Anxiety. 5. Heartburn. CONSULTS: Blanquita Stephens NP of Oncology. DISCHARGE MEDICATIONS: 1. Dronabinol 5 mg t.i.d. as needed for appetite stimulation. 2. Ondansetron 4 mg every 4 hours as needed for nausea. 3. Scopolamine 1 patch transdermally every 72 hours. 4. Clotrimazole lizzy 10 mg 5 times daily. 5. Lorazepam 0.5 mg every 6 hours as needed for anxiety. 6. Hydrocodone/acetaminophen 7.5/325 every 6 hours as needed for pain. 7. Omeprazole 20 mg daily. 8. Multivitamin 1 tablet daily. 9. Loratadine 10 mg daily. HISTORY OF PRESENT ILLNESS: Mr. Reynoso is a 59-year-old man with history of relapsed NK/T-cell lymphoma of the nares, history of prostate cancer and SCC of the head and neck, who is presenting with abdominal pain and fever. The patient was admitted to this hospital after a CT scan 5 days prior to this presentation showed acute diverticulitis and the patient was unable to tolerate p.o. antibiotics, so he was admitted and given Cipro and Flagyl IV. He improved significantly and 2 days later, he was discharged home on p.o. antibiotics; however, the patient states he was not able to tolerate all the oral antibiotics and by the next morning, he had recurrence of fever and abdominal pain, so he re-presented to the emergency room now. He initially called his oncologist, Dr. Nova Blair and she referred him here. The patient mostly has abdominal pain in the epigastric region. He reports decreased appetite, but no nausea and vomiting. He states he is having diarrhea with occasional blood. He denied chest pain, shortness of breath. He was asked to be admitted to the hospitalist service for IV antibiotics and fluids. HOSPITAL COURSE: The patient was initiated on Zosyn and given IV fluids. By the next morning, he felt significantly better with only mild abdominal pain, but reported no recurrence of his appetite. He had his electrolytes repleted as needed. He was recorded to have a fever in the emergency department, but had no recurrence of fever over the 3 days that he was in the hospital. By the day prior to discharge, the patient's Marinol which he had not been requesting was switched from p.r.n. to scheduled. The patient experienced an immediate improvement in his symptoms after initiating Marinol. He reports his appetite returned and the "yuckiness" in the stomach went away completely. By the next morning, he felt great and ready to return home. Oncology recommended to discharge without antibiotics given that the patient has now received a total of approximately 7 days of IV antibiotics between these 2 admissions. Also of note, the patient was noted to have an elevated vitamin D level to 78 and he was asked to stop taking vitamin D and have this followed up in clinic. PHYSICAL EXAMINATION: Afebrile, heart rate 78, blood pressure 109/71, respiratory rate 16, oxygen saturation 96% on room air. In general, he is a well-appearing man, in no acute distress, who is alert and interactive, answers all questions appropriately, very pleasant. HEENT: With thrush, improved from day of presentation. Neck: No JVD. Supple. Lungs: Clear to auscultation bilaterally. Heart: Regular rate and rhythm. No murmurs, gallops, or rubs. Abdomen: Soft, nontender, nondistended. No guarding or rebound. Extremities: Warm and well perfused. No evidence of edema. PERTINENT DIAGNOSTIC STUDIES/LAB DATA: CBC notable for hemoglobin 11.6 normocytic, appears to be the patient's baseline with platelets 143 on discharge which is slightly improved from his most recent counts. BMP unremarkable. Two sets of blood cultures without growth. Abdomen and pelvis CT with left adrenal lipoma, myelolipoma or adrenal adenoma, colonic diverticulosis, status post TURP procedure, 2 nodules in the subcutaneous fat, left buttock suggesting sebaceous cyst. DISCHARGE PLAN: The patient will be discharged to follow up with his Oncology Clinic as well as his primary care physician. He is not going to be discharged on antibiotics. He was encouraged to start taking the Marinol that was prescribed to him since starting chemotherapy as this seemed to improve his symptoms more than anything else. For elevated vitamin D level, he was encouraged to stop taking his vitamin D 5000 International Units daily. If he were to have levels decreased in the future, he should be prescribed 1000 to 2000 International Units daily. His other home medications were unchanged. DIET: Healthy diet, low in processed foods. ACTIVITY: As tolerated. DISPOSITION: Home. CONDITION: Good. TIME SPENT: Approximately 60 minutes was spent on discharge of this patient, more than half of which was spent with care coordination at bedside for interview and exam. [id number]/[facility] #: [id number] MTDD
== END 2019-12-17 14:00 | disposition home or self-care (01) | DRG 244 ==
LOC: ED 23:01 → MED 12-15 02:45
PROVIDERS: ADMIT Family Medicine; ATTEND Internal Medicine
DX: K57.93 Diverticulitis of intestine, part unspecified, without perforation or abscess with bleeding (principal); C84.9 Mature T/NK-cell lymphomas, unspecified; R12 Heartburn; F41.9 Anxiety disorder, unspecified; 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, unspecified; K21.9 Gastro-esophageal reflux disease without esophagitis; D17.79 Benign lipomatous neoplasm of other sites; E86.0 Dehydration; E87.6 Hypokalemia; E83.42 Hypomagnesemia; Z79.899 Other long term (current) drug therapy; Z85.46 Personal history of malignant neoplasm of prostate; Z28.21 Immunization not carried out because of patient refusal; Z90.79 Acquired absence of other genital organ(s); Z92.21 Personal history of antineoplastic chemotherapy; Z92.3 Personal history of irradiation; Z87.891 Personal history of nicotine dependence
CPT/HCPCS: 36415; 74177; 80048; 80053; 82306; 83605; 83735; 85025; 87040; 93005; 96374; 99285; A9270-GY; J1650; J2060; J2270; J2405; J2543; J3475; Q9967

== ENCOUNTER 2020-01-20 09:50 | Inpatient (IN) | payer BC, OTHER ==
[2020-01-20] MEDS ORDERED: Ondansetron 4 mg VIAL 2 MG/ML 2 ml VIAL ONE (10:29)
[2020-01-20 10:31] LABS: BUN/Creatinine Ratio 11.2 (8-20); Calcium 9.4 mg/dL (8.6-10.3); EGFR African American 94.7 (>60); EGFR Non-African American 78.3 (>60); Magnesium 1.5 mg/dL (1.9-2.7); Potassium 3.3 mmol/L (3.5-5.0)
[2020-01-20 11:30] LABS: Hematocrit 40 % (42-52); Hemoglobin 13.5 g/dL (14.0-18.0); Mean Corpuscular HGB Conc 34 g/dL (31-36); Mean Corpuscular Hemoglobin 30 pg (27-31); Mean Corpuscular Volume 87 fL (80-94); Mean Platelet Volume 7.4 fL (7.4-10.4); Platelet Count 243 10^3/uL (150-450); Red Blood Count 4.55 10^6 /uL (4.18-5.48); Red Cell Distribution Width 18 % (10-15); White Blood Count 11.5 10^3/uL (3.5-10.8)
[2020-01-20 11:31] LABS: ABS Basophils 0.1 10^3/ul (0-0.2); ABS Eosinophils 0.1 10^3/ul (0-0.6); ABS Lymphocytes 0.5 10^3/ul (1.0-4.8); Eosinophil % 0.5 %; Lymphocyte % 4.8 %
[2020-01-20] MEDS ORDERED: LORazepam 2 mg VIAL 1 ml IV PUSH PRN (12:18)
[2020-01-20] MEDS ORDERED: Lorazepam PYXIS KEY PRN (12:18)
[2020-01-20] MEDS ORDERED: Piperacillin/Tazobac ADVAN(*) 3.375 GM in NS 0.9% 100 ml BAG 100 ML IVPB ONE (12:32)
[2020-01-20] MEDS: Enoxaparin 40 MG/0.4 ML SYR(*) SUBCUT SCH (14:21)
[2020-01-20] MEDS: NS 0.9% w/ 20 Meq KCL 1000 ml 1,000 ML IV SCH ×2 (14:21→23:11)
[2020-01-20] MEDS ORDERED: Magnesium Sulf 4 GM/100 ML IV 4,000 MG/100 ML BAG IVPB ONE (14:30)
[2020-01-20] MEDS ORDERED: Zosyn per Pharmacy NOTE FOLLOW UP PRN (14:49)
[2020-01-21] MEDS: Ondansetron 4 mg VIAL 2 MG/ML 2 ml VIAL IV PRN ×3 (03:09→22:23)
[2020-01-21 06:36] LABS: Hematocrit 31 % (42-52); Hemoglobin 10.5 g/dL (14.0-18.0); Mean Corpuscular HGB Conc 34 g/dL (31-36); Mean Corpuscular Hemoglobin 30 pg (27-31); Mean Corpuscular Volume 88 fL (80-94); Mean Platelet Volume 6.3 fL (7.4-10.4); Platelet Count 160 10^3/uL (150-450); Red Blood Count 3.51 10^6 /uL (4.18-5.48); Red Cell Distribution Width 18 % (10-15); White Blood Count 7.3 10^3/uL (3.5-10.8)
[2020-01-21 06:53] LABS: Albumin/Globulin Ratio 1.2 (1-3); BUN/Creatinine Ratio 11.4 (8-20); Calcium 8.1 mg/dL (8.6-10.3); EGFR African American 107.3 (>60); EGFR Non-African American 88.6 (>60); Globulin 2.6 g/dL (2-4); Magnesium 2.1 mg/dL (1.9-2.7); Potassium 3.9 mmol/L (3.5-5.0); Total Bilirubin 0.6 mg/dL (0.2-1.0); Total Protein 5.6 g/dL (6.4-8.9)
[2020-01-21] MEDS: NS 0.9% w/ 20 Meq KCL 1000 ml 1,000 ML IV SCH ×3 (07:59→20:43)
[2020-01-21 08:13] LABS: ABS Basophils 0.1 10^3/ul (0-0.2); ABS Lymphocytes 0.3 10^3/ul (1.0-4.8); ABS Monocytes 1.5 10^3/ul (0-0.8); Eosinophil % 0.6 %; Lymphocyte % 3.6 %
[2020-01-21] MEDS: Enoxaparin 40 MG/0.4 ML SYR(*) SUBCUT SCH (13:00)
[2020-01-22 05:52] LABS: Hematocrit 30 % (42-52); Hemoglobin 10.4 g/dL (14.0-18.0); Mean Corpuscular HGB Conc 34 g/dL (31-36); Mean Corpuscular Hemoglobin 30 pg (27-31); Mean Corpuscular Volume 88 fL (80-94); Mean Platelet Volume 6.7 fL (7.4-10.4); Platelet Count 144 10^3/uL (150-450); Red Blood Count 3.43 10^6 /uL (4.18-5.48); Red Cell Distribution Width 18 % (10-15); White Blood Count 4.1 10^3/uL (3.5-10.8)
[2020-01-22 06:02] LABS: BUN/Creatinine Ratio 9.6 (8-20); Calcium 8.6 mg/dL (8.6-10.3); EGFR African American 133.1 (>60); Magnesium 1.6 mg/dL (1.9-2.7); Potassium 3.6 mmol/L (3.5-5.0)
[2020-01-22] MEDS ORDERED: Magnesium Sulf 4 GM/100 ML IV 4,000 MG/100 ML BAG IVPB ONE (07:35)
[2020-01-22] MEDS ORDERED: Zosyn per Pharmacy NOTE FOLLOW UP PRN (08:13)
[2020-01-22] MEDS ORDERED: ZOSYN 3.375 GM x ONE DOSE over 30 miuntes IVPB (08:30)
[2020-01-22] MEDS ORDERED: Iohexol 300 (CONTRAST) 10 ML SDV IV ONE (12:11)
[2020-01-22] MEDS: Enoxaparin 40 MG/0.4 ML SYR(*) SUBCUT SCH (12:33)
[2020-01-22] MEDS: ZOSYN 3.375 GM Q8H per EXTENDED INFUSION IVPB SCH ×2 (13:06→21:08)
[2020-01-22] MEDS: Ondansetron 4 mg VIAL 2 MG/ML 2 ml VIAL IV PRN (15:35)
[2020-01-22] MEDS: NS 0.9% w/ 20 Meq KCL 1000 ml 1,000 ML IV SCH (19:26)
[2020-01-23] MEDS: ZOSYN 3.375 GM Q8H per EXTENDED INFUSION IVPB SCH ×3 (04:52→20:48)
[2020-01-23 05:03] LABS: Hematocrit 31 % (42-52); Hemoglobin 10.6 g/dL (14.0-18.0); Mean Corpuscular HGB Conc 34 g/dL (31-36); Mean Corpuscular Hemoglobin 30 pg (27-31); Mean Corpuscular Volume 87 fL (80-94); Mean Platelet Volume 6.5 fL (7.4-10.4); Platelet Count 144 10^3/uL (150-450); Red Blood Count 3.59 10^6 /uL (4.18-5.48); Red Cell Distribution Width 18 % (10-15); White Blood Count 3.6 10^3/uL (3.5-10.8)
[2020-01-23 05:20] LABS: Albumin/Globulin Ratio 1.2 (1-3); BUN/Creatinine Ratio 6.5 (8-20); Calcium 8.2 mg/dL (8.6-10.3); EGFR African American 125.1 (>60); EGFR Non-African American 103.4 (>60); Globulin 2.5 g/dL (2-4); Magnesium 1.9 mg/dL (1.9-2.7); Potassium 3.7 mmol/L (3.5-5.0); Total Bilirubin 0.5 mg/dL (0.2-1.0); Total Protein 5.5 g/dL (6.4-8.9)
[2020-01-23 05:34] LABS: ABS Eosinophils 0.2 10^3/ul (0-0.6); ABS Lymphocytes 0.3 10^3/ul (1.0-4.8); ABS Monocytes 1.1 10^3/ul (0-0.8); Eosinophil % 4.4 %; Lymphocyte % 8.1 %; Nucleated Red Blood Cells % 0.1; Polychromasia 1+
[2020-01-23] MEDS: NS 0.9% w/ 20 Meq KCL 1000 ml 1,000 ML IV SCH (08:46)
[2020-01-23] MEDS: Enoxaparin 40 MG/0.4 ML SYR(*) SUBCUT SCH (11:52)
[2020-01-23] MEDS: Potassium Chlor 20 meq TAB.ER PO SCH (11:52)
[2020-01-24] MEDS: ZOSYN 3.375 GM Q8H per EXTENDED INFUSION IVPB SCH ×3 (04:47→21:34)
[2020-01-24] MEDS: Potassium Chlor 20 meq TAB.ER PO SCH (09:19)
[2020-01-24] MEDS ORDERED: Magnesium Sulfate 4 GM IV IVPB ONE (13:00)
[2020-01-24] MEDS ORDERED: MAGNESIUM SULFATE 4 GM ONE (13:00)
[2020-01-24] MEDS: Enoxaparin 40 MG/0.4 ML SYR(*) SUBCUT SCH (16:00)
[2020-01-25 01:50] LABS: ABS Basophils 0.1 10^3/ul (0-0.2); ABS Eosinophils 0.1 10^3/ul (0-0.6); ABS Lymphocytes 0.3 10^3/ul (1.0-4.8); ABS Monocytes 0.9 10^3/ul (0-0.8); Hematocrit 31 % (42-52); Hemoglobin 10.5 g/dL (14.0-18.0); Lymphocyte % 8.6 %; Mean Corpuscular HGB Conc 35 g/dL (31-36); Mean Corpuscular Hemoglobin 30 pg (27-31); Mean Corpuscular Volume 86 fL (80-94); Mean Platelet Volume 6.6 fL (7.4-10.4); Platelet Count 140 10^3/uL (150-450); Red Blood Count 3.53 10^6 /uL (4.18-5.48); Red Cell Distribution Width 17 % (10-15); White Blood Count 3.3 10^3/uL (3.5-10.8)
[2020-01-25 01:51] LABS: Calcium 8.7 mg/dL (8.6-10.3); EGFR African American 113.2 (>60); EGFR Non-African American 93.5 (>60); Eosinophil % 0.1 %; Magnesium 1.7 mg/dL (1.9-2.7); Potassium 3.6 mmol/L (3.5-5.0)
[2020-01-25] MEDS: ZOSYN 3.375 GM Q8H per EXTENDED INFUSION IVPB SCH (05:15)
[2020-01-25 06:06] LABS: Hematocrit 32 % (42-52); Hemoglobin 11.3 g/dL (14.0-18.0); Mean Corpuscular HGB Conc 35 g/dL (31-36); Mean Corpuscular Hemoglobin 31 pg (27-31); Mean Corpuscular Volume 87 fL (80-94); Mean Platelet Volume 6.9 fL (7.4-10.4); Platelet Count 147 10^3/uL (150-450); Red Blood Count 3.69 10^6 /uL (4.18-5.48); Red Cell Distribution Width 18 % (10-15); White Blood Count 4.5 10^3/uL (3.5-10.8)
[2020-01-25 06:16] LABS: BUN/Creatinine Ratio 8.9 (8-20); Calcium 8.5 mg/dL (8.6-10.3); EGFR African American 121.5 (>60); EGFR Non-African American 100.4 (>60); Magnesium 1.8 mg/dL (1.9-2.7); Potassium 3.8 mmol/L (3.5-5.0)
[2020-01-25 06:30] LABS: ABS Basophils 0.1 10^3/ul (0-0.2); ABS Lymphocytes 0.3 10^3/ul (1.0-4.8); ABS Monocytes 1.1 10^3/ul (0-0.8); Eosinophil % 0.9 %; Lymphocyte % 7.5 %
[2020-01-25] MEDS: Potassium Chlor 20 meq TAB.ER PO SCH (09:22)
[2020-01-25] MEDS ORDERED: Magnesium Sulfate IV 3 GM in NS 0.9% 100 ml BAG 100 ML IVPB ONE (09:50)
[2020-01-25] MEDS: Sucralfate 1 gm SUSP 1 GM/10 ML UDC PO SCH ×2 (11:02→17:23)
[2020-01-25] MEDS: NS 0.9% 1000 ml BAG 1,000 ML IV SCH ×2 (11:03→20:50)
[2020-01-25] MEDS: Enoxaparin 40 MG/0.4 ML SYR(*) SUBCUT SCH (12:56)
[2020-01-26] MEDS: NS 0.9% 1000 ml BAG 1,000 ML IV SCH ×3 (04:59→22:27)
[2020-01-26] MEDS: Sucralfate 1 gm SUSP 1 GM/10 ML UDC PO SCH ×3 (07:16→16:43)
[2020-01-26 07:49] LABS: Hematocrit 30 % (42-52); Hemoglobin 10.4 g/dL (14.0-18.0); Mean Corpuscular HGB Conc 35 g/dL (31-36); Mean Corpuscular Hemoglobin 30 pg (27-31); Mean Corpuscular Volume 86 fL (80-94); Mean Platelet Volume 6.7 fL (7.4-10.4); Platelet Count 152 10^3/uL (150-450); Red Cell Distribution Width 19 % (10-15)
[2020-01-26 08:38] LABS: ABS Basophils 0.1 10^3/ul (0-0.2); ABS Eosinophils 0.1 10^3/ul (0-0.6); ABS Lymphocytes 0.3 10^3/ul (1.0-4.8); Lymphocyte % 7.2 %; Nucleated Red Blood Cells % 0.1
[2020-01-26 08:48] LABS: Potassium 3.8 mmol/L (3.5-5.0)
[2020-01-26 08:49] LABS: Albumin 2.9 g/dL (3.2-5.2); Albumin/Globulin Ratio 1.2 (1-3); Calcium 8.3 mg/dL (8.6-10.3); EGFR Non-African American 117.4 (>60); Globulin 2.4 g/dL (2-4); Magnesium 1.7 mg/dL (1.9-2.7); Total Bilirubin 0.5 mg/dL (0.2-1.0); Total Protein 5.3 g/dL (6.4-8.9)
[2020-01-26] MEDS: Potassium Chlor 20 meq TAB.ER PO SCH (10:01)
[2020-01-26] MEDS ORDERED: Magnesium Sulfate 2 gm BAG 2 GM/50 ML BAG IVPB ONE (11:19)
[2020-01-26] MEDS: Enoxaparin 40 MG/0.4 ML SYR(*) SUBCUT SCH (13:59)
[2020-01-26] MEDS: DOXYcycline 100 mg CAP (*) PO SCH (19:33)
[2020-01-27] MEDS: Sucralfate 1 gm SUSP 1 GM/10 ML UDC PO SCH (07:38)
[2020-01-27] MEDS: Potassium Chlor 20 meq TAB.ER PO SCH (09:15)
[2020-01-27] MEDS: DOXYcycline 100 mg CAP (*) PO SCH ×2 (09:15→21:39)
[2020-01-27 11:33] LABS: Hematocrit 30 % (42-52); Hemoglobin 10.3 g/dL (14.0-18.0); Mean Corpuscular HGB Conc 34 g/dL (31-36); Mean Corpuscular Hemoglobin 30 pg (27-31); Mean Corpuscular Volume 87 fL (80-94); Mean Platelet Volume 7.3 fL (7.4-10.4); Platelet Count 173 10^3/uL (150-450); Red Blood Count 3.42 10^6 /uL (4.18-5.48); Red Cell Distribution Width 18 % (10-15); White Blood Count 3.8 10^3/uL (3.5-10.8)
[2020-01-27] MEDS ORDERED: Magnesium Sulfate 2 gm BAG 2 GM/50 ML BAG IVPB ONE (11:41)
[2020-01-27 11:54] LABS: Albumin/Globulin Ratio 1.2 (1-3); BUN/Creatinine Ratio 10.8 (8-20); Calcium 8.5 mg/dL (8.6-10.3); EGFR African American 152.1 (>60); EGFR Non-African American 125.7 (>60); Globulin 2.5 g/dL (2-4); Magnesium 1.7 mg/dL (1.9-2.7); Potassium 3.6 mmol/L (3.5-5.0); Total Bilirubin 0.5 mg/dL (0.2-1.0); Total Protein 5.5 g/dL (6.4-8.9)
[2020-01-27 12:04] LABS: ABS Basophils 0.1 10^3/ul (0-0.2); ABS Eosinophils 0.1 10^3/ul (0-0.6); ABS Lymphocytes 0.4 10^3/ul (1.0-4.8); ABS Monocytes 1.1 10^3/ul (0-0.8); Eosinophil % 3.7 %; Lymphocyte % 11.1 %
[2020-01-27] MEDS: Enoxaparin 40 MG/0.4 ML SYR(*) SUBCUT SCH (13:45)
[2020-01-27] MEDS: Hyoscyamine ER 0.375 mg (NF) TAB PO SCH ×2 (14:06→23:11)
[2020-01-28] MEDS: NS 0.9% 1000 ml BAG 1,000 ML IV SCH ×2 (00:10→08:32)
[2020-01-28 05:37] LABS: Albumin 2.6 g/dL (3.2-5.2); Albumin/Globulin Ratio 1.2 (1-3); BUN/Creatinine Ratio 8.8 (8-20); Calcium 7.5 mg/dL (8.6-10.3); EGFR Non-African American 146.3 (>60); Globulin 2.1 g/dL (2-4); Hematocrit 30 % (42-52); Hemoglobin 9.9 g/dL (14.0-18.0); Magnesium 1.5 mg/dL (1.9-2.7); Mean Corpuscular HGB Conc 34 g/dL (31-36); Mean Corpuscular Hemoglobin 30 pg (27-31); Mean Corpuscular Volume 89 fL (80-94); Mean Platelet Volume 6.6 fL (7.4-10.4); Platelet Count 198 10^3/uL (150-450); Potassium 3.2 mmol/L (3.5-5.0); Red Blood Count 3.32 10^6 /uL (4.18-5.48); Red Cell Distribution Width 18 % (10-15); Total Bilirubin 0.4 mg/dL (0.2-1.0); Total Protein 4.7 g/dL (6.4-8.9); White Blood Count 3.8 10^3/uL (3.5-10.8)
[2020-01-28 06:24] LABS: ABS Basophils 0.1 10^3/ul (0-0.2); ABS Eosinophils 0.1 10^3/ul (0-0.6); ABS Lymphocytes 0.4 10^3/ul (1.0-4.8); ABS Monocytes 0.9 10^3/ul (0-0.8); Eosinophil % 3.8 %; Lymphocyte % 10.2 %
[2020-01-28 06:29] LABS: Acanthocytes 1+; Polychromasia 1+
[2020-01-28] MEDS: DOXYcycline 100 mg CAP (*) PO SCH (08:32)
[2020-01-28] MEDS: Potassium Chlor 20 meq TAB.ER PO SCH (08:33)
[2020-01-28] MEDS: Ondansetron 4 mg VIAL 2 MG/ML 2 ml VIAL IV PRN (09:09)
[2020-01-28] MEDS ORDERED: Magnesium Sulf 4 GM/100 ML IV 4,000 MG/100 ML BAG IVPB ONE (09:24)
[2020-01-28] MEDS: KCL 10 MEQ/50 ML IVPREMIX 10 MEQ/50 ML BAG IV SCH ×3 (10:29→12:46)
[2020-01-28 11:19] VITALS: BP 95/61
== END 2020-01-28 15:00 | disposition home or self-care (01) | DRG 720 ==
LOC: CHOA 09:50 → MED 12:18 → OBSVTOIN 17:28 → MEDTELE 01-22 16:47
PROVIDERS: ADMIT Internal Medicine Hematology & Oncology; ATTEND Internal Medicine Hematology & Oncology